=== PATIENT | male | born 1950 | race Caucasian/White ===

== ENCOUNTER 2017-02-02 21:07 | Inpatient (IN) | payer MEDICARE ==
[~2017-02-02 21:07] MED LIST: IBUP-232 PO; LORT5TAB PO; Z.0.NO CURRENT MEDS
[2017-02-02 21:09] VITALS: BP 179/90; PULSE 65; RESP 16; TEMP 98.7; O2SAT 97
[2017-02-02] MEDS ORDERED: SODIUM CHLOR 0.9% 1000 ML INJ 1,000 ML IV ONE (21:28)
[2017-02-02] MEDS ORDERED: HYDROmorphone HCL PF 1 MG/ML VIAL IVS ONE (21:30)
[2017-02-02] MEDS ORDERED: SODIUM CHLORIDE 0.9% FLUSH 10 ML FLUSH IVF PRN (21:30)
[2017-02-02] MEDS ORDERED: ONDANSETRON HCL 4 MG/2 ML VIAL IVP ONE (21:30)
[2017-02-02] MEDS ORDERED: KETOROLAC TROMETHAMINE 30 MG/ML (IVP) VIAL IVP ONE (21:30)
--- NOTE | 2017-02-02 21:35 | PD ---
HPI Chief Complaint: Flank/Kidney Pain Time Seen by Provider: 21:28 Travel History International Travel<30 days: No Contact w/Intl Traveler<30days: No Traveled to known affect area: No History of Present Illness HPI PATIENT C/O SUDDEN ONSET RT FLANK PAIN, RAD TO FRONT RLQ AREA, 02/02, ASSOC WITH GROSS HEMATURIA...DENIES ANY ALLEVIATING/AGGRAVATING FACTORS, DENIES ANY OTHER ASSOCIATED SYMPTOMS PMHX-DENIES EXCEPT RENAL CYST DENIES ANY MEDICATIONS NKDA PCP DR HICKEY [facility] Past Medical History Blood Disorders: No Cancer: No Cardiovascular Problems: No Chemotherapy: No Endocrine: No Genitourinary: No Immune Disorder: No Musculoskeletal: No Neurologic: No Psychiatric: No Respiratory: No Radiation Therapy: No Past Surgical History AICD: No Genitourinary Surgery: Yes (VASECTOMY AND REVERSAL) Joint Replacement: No Pacemaker: No Social History Alcohol Use: Yes (OCC) Tobacco Use: No Substance Use: No Allergies-Medications (Allergen,Severity, Reaction): Coded Allergies: No Known Allergies (Verified , 02/02/17) Reported Meds & Prescriptions Reported Meds & Active Scripts Active Review of Systems Except as stated in HPI: all other systems reviewed are Neg Genitourinary: Positive: Hematuria, Flank Pain Physical Exam Narrative GENERAL: SKIN: Warm and dry. HEAD: Atraumatic. Normocephalic. EYES: Pupils equal and round. No scleral icterus. No injection or drainage. ENT: No nasal bleeding or discharge. Mucous membranes pink and moist. NECK: Trachea midline. No JVD. CARDIOVASCULAR: Regular rate and rhythm. RESPIRATORY: No accessory muscle use. Clear to auscultation. Breath sounds equal bilaterally. GASTROINTESTINAL: Abdomen soft, non-tender, nondistended. Hepatic and splenic margins not palpable. MUSCULOSKELETAL: Extremities without clubbing, cyanosis, or edema. No obvious deformities. NEUROLOGICAL: Awake and alert. No obvious cranial nerve deficits. Motor grossly within normal limits. Five out of 5 muscle strength in the arms and legs. Normal speech. PSYCHIATRIC: Appropriate mood and affect; insight and judgment normal. Data Data Last Documented VS Vital Signs Date Time Temp Pulse Resp B/P Pulse Ox O2 Delivery O2 Flow Rate FiO2 02/02/17 22:40 18 02/02/17 21:09 98.7 65 179/90 97 Room Air Orders Complete Blood Count With Diff (02/02/17 21:28) Comprehensive Metabolic Panel (02/02/17 21:28) Urinalysis - C+S If Indicated (02/02/17 21:28) Ecg Monitoring (02/02/17 21:28) Iv Access Insert/Monitor (02/02/17 21:28) Ketorolac Inj (Toradol Inj) (02/02/17 21:30) Ondansetron Inj (Zofran Inj) (02/02/17 21:30) Sodium Chloride 0.9% Flush (Ns Flush) (02/02/17 21:30) Sodium Chlor 0.9% 1000 Ml Inj (Ns 1000 M (02/02/17 21:28) Hydromorphone Pf Inj (Dilaudid Pf Inj) (02/02/17 21:30) Urinary Catheter Insert/Apply (02/02/17 22:13) Ct Abd/Pel W & W/O Iv Contrast (02/02/17 21:28) Iohexol 350 Inj (Omnipaque 350 Inj) (02/02/17 22:26) Admit Order (Ed Use Only) (02/02/17 22:49) Admit To Inpatient (02/02/17 ) Vital Signs (Adult) Q4H (02/02/17 22:48) Activity Oob With Assistance (02/02/17 22:48) Manufacturing Engineering Technologist / Telemetry .CONTINUOUS (02/02/17 22:48) Diet Heart Healthy (02/03/17 Breakfast) Sodium Chloride 0.9% Flush (Ns Flush) (02/02/17 23:00) Sodium Chloride 0.9% Flush (Ns Flush) (02/03/17 09:00) Ondansetron Inj (Zofran Inj) (02/02/17 23:00) Basic Metabolic Panel (Bmp) (02/03/17 06:00) Complete Blood Count With Diff (02/03/17 06:00) Naloxone Inj (Narcan Inj) (02/02/17 23:00) Inpatient Certification (02/02/17 ) Consult Urology (02/02/17 ) Labs Laboratory Tests Test 02/02/17 21:35 White Blood Count 9.8 TH/MM3 Red Blood Count 4.38 MIL/MM3 Hemoglobin 13.7 GM/DL Hematocrit 41.4 % Mean Corpuscular Volume 94.5 FL Mean Corpuscular Hemoglobin 31.4 PG Mean Corpuscular Hemoglobin 33.2 % Concent Red Cell Distribution Width 13.0 % Platelet Count 323 TH/MM3 Mean Platelet Volume 8.3 FL Neutrophils (%) (Auto) 63.5 % Lymphocytes (%) (Auto) 22.3 % Monocytes (%) (Auto) 7.9 % Eosinophils (%) (Auto) 5.4 % Basophils (%) (Auto) 0.9 % Neutrophils # (Auto) 6.2 TH/MM3 Lymphocytes # (Auto) 2.2 TH/MM3 Monocytes # (Auto) 0.8 TH/MM3 Eosinophils # (Auto) 0.5 TH/MM3 Basophils # (Auto) 0.1 TH/MM3 CBC Comment DIFF FINAL Differential Comment Urine Color DARK-RED Urine Turbidity CLOUDY Urine pH 6.5 Urine Specific [place] 1.025 Urine Protein 100 mg/dL Urine Glucose (UA) NEG mg/dL Urine Ketones NEG mg/dL Urine Occult Blood LARGE Urine Nitrite NEG Urine Bilirubin NEG Urine Urobilinogen LESS THAN 2.0 MG/DL Urine Leukocyte Esterase TRACE Urine RBC /hpf Urine WBC 5 /hpf Urine Bacteria FEW /hpf Microscopic Urinalysis Comment CULT NOT INDICATED Sodium Level 139 MEQ/L Potassium Level 4.1 MEQ/L Chloride Level 107 MEQ/L Carbon Dioxide Level 25.1 MEQ/L Anion Gap 7 MEQ/L Blood Urea Nitrogen 22 MG/DL Creatinine 1.20 MG/DL Estimat Glomerular Filtration 60 ML/MIN Rate Random Glucose 111 MG/DL Calcium Level 9.7 MG/DL Total Bilirubin 0.3 MG/DL Aspartate Amino Transf 12 U/L (AST/SGOT) Alanine Aminotransferase 28 U/L (ALT/SGPT) Alkaline Phosphatase 47 U/L Total Protein 7.0 GM/DL Albumin 4.0 GM/DL [facility] Medical Decision Making Medical Screen Exam Complete: Yes Emergency Medical Condition: Yes Medical Record Reviewed: Yes Differential Diagnosis UTI V RENAL STONE V CANCER Narrative Course GROSS HEMATURIA NOTED, THREE WAY PLACED FOR CBI, CT ABD/PELVIS SHOWED RIGHT RENAL MASS, PER RADIOLOGIST CONVERTED TO CT WITH CONTRAST, WHICH CONFIRMED LIKELY RENAL CELL CARCINOMA. PATIENT ADMITTED TO MEDICINE FOR FURTHER WORKUP. INITIAL RETENTION AND GROSS HEMATURIA EVENTUALLY PARTIALLY CLEARED AFTER AGGRESSIVE IRRIGATION, HOWEVER SOURCE OF BLEEDING IS CA AND UNLIKELY THAT BLEEDING WILL STOP JUST BY CBI. Diagnosis Primary Impression: ACUTE GROSS HEMATURIA DUE TO NEWLY DIAGNOSED RENAL CA Admitting Information Admitting Physician Requests: Observation Dangelo Davison MD Feb 02, 2017 21:35
[2017-02-02 21:50] LABS: AUTOMATED NEUTROPHIL # 6.2 TH/MM3 (1.8-7.7); BASOPHIL # 0.1 TH/MM3 (0-0.2); BASOPHIL % 0.9 % (0.0-2.0); EOSINOPHIL # 0.5 TH/MM3 (0-0.4); EOSINOPHIL % 5.4 % (0.0-4.0); HEMATOCRIT 41.4 % (39.0-51.0); HEMO FLAGS DIFF FINAL; LYMPH % 22.3 % (9.0-44.0); LYMPHOCYTE # 2.2 TH/MM3 (1.0-4.8); MEAN CELL VOLUME 94.5 FL (80.0-100.0); MEAN CORPUSCULAR HEMOGLOBIN 31.4 PG (27.0-34.0); MEAN CORPUSCULAR HGB CONC 33.2 % (32.0-36.0); MONO % 7.9 % (0.0-8.0); NEUT % 63.5 % (16.0-70.0); PLATELET COUNT 323 TH/MM3 (150-450); RED BLOOD COUNT 4.38 MIL/MM3 (4.50-5.90); WHITE BLOOD COUNT 9.8 TH/MM3 (4.0-11.0)
[2017-02-02 21:52] LABS: BLOOD, URINE LARGE (NEG); GLUCOSE,URINE NEG (NEG); KETONE, URINE NEG (NEG); NITRITE,URINE NEG (NEG); PH, URINE 6.5 (5.0-8.5)
[2017-02-02 21:53] LABS: URINE COLOR DARK-RED (YELLW/STRAW)
[2017-02-02 22:03] LABS: ANION GAP 7 MEQ/L (5-15); AST (GOT) 12 U/L (15-37); BICARBONATE 25.1 MEQ/L (21.0-32.0); BLOOD UREA NITROGEN 22 MG/DL (7-18); CHLORIDE 107 MEQ/L (98-107); GLOMERULAR FILTRATION RATE 60 ML/MIN (>89); POTASSIUM 4.1 MEQ/L (3.5-5.1); SODIUM (NA) 139 MEQ/L (136-145)
[2017-02-02 22:04] LABS: ALT (GPT) 28 U/L (12-78)
[2017-02-02 22:05] LABS: BACTERIA, URINE FEW /hpf; COMMENT (UR) CULT NOT INDICATED; CULTURE IF INDICATED CULT NOT INDICATED
[2017-02-02 22:06] LABS: ALKALINE PHOSPHATASE 47 U/L (45-117); TOTAL BILIRUBIN ADULT 0.3 MG/DL (0.2-1.0)
[2017-02-02] MEDS ORDERED: IOHEXOL 350 MG/ML 10 ML VIAL (for RAD DIAG) IV ONE (22:26)
--- NOTE | 2017-02-02 22:57 | RADRPT ---
EXAM DATE/TIME: 02/02/2017 21:50 [place] COMPARISON: No previous studies available for comparison. INDICATIONS : Right side flank pain and hematuria. ORAL CONTRAST: No oral contrast ingested. RADIATION DOSE: 90.6 CTDIvol (mGy) MEDICAL HISTORY : None SURGICAL HISTORY : None. ENCOUNTER: Initial ACUITY: 1 day PAIN SCALE: 10/10 LOCATION: Right flank TECHNIQUE: Volumetric scanning of the abdomen and pelvis was performed. Using automated exposure control and ad justment of the mA and/or kV according to patient size, radiation dose was kept as low as reasonably achievable to obtain optimal diagnostic quality images. DICOM format image data is available electro nically for review and comparison. Study was done without contrast, with contrast, with 72 second de lay, and 5 minute delay. FINDINGS: LOWER LUNGS: The visualized lower lungs are clear. LIVER: 1.1 cm low-density lesion dome of the liver nonspecific probably cysts. There is no intrahepatic mode t dilatation. Gallbladder is unremarkable. SPLEEN: Normal size without lesion. PANCREAS: Within normal limits. ADRENAL GLANDS: Within normal limits. RIGHT KIDNEY: 12.6 cm Bosniak 2 cyst upper pole right kidney. 6 cm x 4.5 cm enhancing mass lower pole right kidney with minimal neovascularity. This mass is pedunculated, projects from the lower pole of the right k idney, touches the psoas and iliopsoas without sheela invasion. There is an single renal artery to th e right kidney. There is apparent clot in the renal pelvis. The renal vein is short but patent. A third 1.5 cm Bosniak 3 cystic mass projected from the kidney. There is perinephric stranding around the ureter with clot in the bladder suggesting clot retention. LEFT KIDNEY: The left kidney functions properly without suspicious mass or obstruction. The single left ureter pu rsues an unobstructed course to the bladder. VASCULAR: Minimal atherosclerotic calcification is present. BOWEL/MESENTERY: The stomach, small bowel, and colon demonstrate no acute abnormality. There is no free intraperitone al air or fluid. RETROPERITONEUM: There is no lymphadenopathy. BLADDER: Apparent clot is present in the bladder. REPRODUCTIVE: Prostate is prominent. ABDOMINAL WALL: Within normal limits. INGUINAL: There is no lymphadenopathy or hernia. MUSCULOSKELETAL: Moderate degenerative changes are present in the lumbar spine. There is no evidence for bony metasta tic disease. Scattered incidental bone islands are noted. CONCLUSION: Enhancing pedunculated 6 cm mass right kidney consistent with renal cell carcinoma. Presumed moderate clot retention in the renal pelvis. Bong Herrera MD FACR on February 02, 2017 at 22:40 Board Certified Radiologist. This report was verified electronically.
[2017-02-02] MEDS ORDERED: SODIUM CHLORIDE 0.9% FLUSH 10 ML FLUSH IV FLUSH PRN (23:00)
[2017-02-02] MEDS ORDERED: ONDANSETRON HCL 4 MG/2 ML VIAL IVP PRN (23:00)
[2017-02-02] MEDS ORDERED: NALOXONE HCL 0.4 MG/ML AMP IV PRN (23:00)
[2017-02-02] MEDS ORDERED: HYDROmorphone HCL PF 1 MG/ML VIAL IV PUSH ONE (23:15)
[2017-02-03] VITALS: BP 170/80; PULSE 74; RESP 18; TEMP 98.4; O2SAT 98
[2017-02-03 00:12] VITALS: BP 134/74; PULSE 72; RESP 16; O2SAT 98
--- NOTE | 2017-02-03 02:24 | HHI.HP ---
HPI Service [facility] Primary Care Physician Braeden Kay MD Admission Diagnosis GROSS HEMATURIA DUE TO NEWLY DIAGNOSED RENAL CA Diagnoses: (1) Renal mass Chief Complaint: Hematuria Travel History International Travel<30 Days: No Contact w/Intl Traveler <30 Da: No Traveled to Known Affected Are: No History of Present Illness Written by Carolina Denton, acting as scribe for Dr. Velazquez on 02/03/17 at 02:23. Symptoms: The patient reports that he started urinating blood Then he passed clots followed by severe suprapubic pain with attempted urination Symptoms started at 6 p.m. on 02/02/17 and have now resolved Denies dizziness, chest pain, shortness of breath, nausea, vomiting, diarrhea, black or red stools, fevers. Review of Systems Except as stated in HPI: all other systems reviewed are Neg Past Family Social History Past Medical History Denies any medical problems Denies hypertension, diabetes, CAD, breathing problems, liver/kidney problems, DVT, PE, CVA, seizures, or thyroid problems . Past Surgical History Denies . Reported Medications Reported Meds & Active Scripts Active . Allergies: Coded Allergies: No Known Allergies (Verified , 02/02/17) Active Ordered Medications Current Medications Ketorolac Tromethamine (Toradol Inj) 30 mg ONCE ONCE IVP Last administered on 02/02/17 21:47; Start 02/02/17 at 21:30; Stop 02/02/17 at 21:31; Status DC Ondansetron HCl (Zofran Inj) 4 mg ONCE ONCE IVP Last administered on 21:47; Start 02/02/17 at 21:30; Stop 02/02/17 at 21:31; Status DC Sodium Chloride 2 ml 2 ml UNSCH PRN IVF FLUSH AFTER USING IV ACCESS; Start 04/11 at 21:30 Sodium Chloride (NS 1000 ml Inj) 1,000 ml @ 1,000 mls/hr Q1H ONCE IV Last administered on 02/02/17 21:46; Start 02/02/17 at 21:28; Stop 02/02/17 at 22:27 ; Status DC Hydromorphone HCl (Dilaudid Pf Inj) 0.5 mg ONCE ONCE IVS Last administered on 02/02/17 21:47; Start 02/02/17 at 21:30; Stop 02/02/17 at 21:31; Status DC Iohexol (Omnipaque 350 Inj) 80 ml STK-MED ONCE IV Last administered on 22:26; Start 02/02/17 at 22:26; Stop 02/02/17 at 22:27; Status DC Sodium Chloride (NS Flush) 2 ml UNSCH PRN IV FLUSH FLUSH AFTER USING IV ACCESS ; Start 02/02/17 at 23:00 Sodium Chloride (NS Flush) 2 ml BID IV FLUSH ; Start 02/03/17 at 09:00 Ondansetron HCl (Zofran Inj) 4 mg Q6H PRN IVP NAUSEA OR VOMITING; Start at 23:00 Naloxone HCl (Narcan Inj) 0.4 mg UNSCH PRN IV SEE LABEL COMMENTS; Start at 23:00 Hydromorphone HCl (Dilaudid Pf Inj) 1 mg ONCE ONCE IV PUSH Last administered on 02/02/17 23:38; Start 02/02/17 at 23:15; Stop 02/02/17 at 23:16; Status DC . Family History positive for heart disease . Social History Tobacco: smoked from age 18 - 24 Alcohol: occasional social Illicit Drugs: denies . Physical Exam Vital Signs Vital Signs Date Time Temp Pulse Resp B/P Pulse Ox O2 Delivery O2 Flow Rate FiO2 02/03/17 00:12 72 16 134/74 98 Room Air 02/03/17 00:00 98.4 74 18 170/80 98 02/02/17 22:40 18 02/02/17 22:40 18 02/02/17 21:09 98.7 65 16 179/90 97 Room Air Physical Exam GENERAL: This is a well-nourished, well-developed patient, in no apparent distress. SKIN: No rashes, ecchymoses or lesions. Cool and dry. HEAD: Atraumatic. Normocephalic. EYES: No scleral icterus. No injection or drainage. ENT: Nose without bleeding, purulent drainage. NECK: Trachea midline. No JVD. CARDIOVASCULAR: Regular rate and rhythm without murmurs, gallops, or rubs. RESPIRATORY: Clear to auscultation. Breath sounds equal bilaterally. No wheezes , rales, or rhonchi. GASTROINTESTINAL: Abdomen soft, non-tender, nondistended. No guarding. GENITOURINARY: Benites catheter to bedside drainage with continuous bladder irrigation draining bloody urine. MUSCULOSKELETAL: Extremities without clubbing, cyanosis, or edema. No calf tenderness. NEUROLOGICAL: Awake and alert. Motor and sensory grossly within normal limits. Normal speech. . Laboratory Laboratory Tests Test 02/02/17 21:35 White Blood Count 9.8 Red Blood Count 4.38 Hemoglobin 13.7 Hematocrit 41.4 Mean Corpuscular Volume 94.5 Mean Corpuscular Hemoglobin 31.4 Mean Corpuscular Hemoglobin 33.2 Concent Red Cell Distribution Width 13.0 Platelet Count 323 Mean Platelet Volume 8.3 Neutrophils (%) (Auto) 63.5 Lymphocytes (%) (Auto) 22.3 Monocytes (%) (Auto) 7.9 Eosinophils (%) (Auto) 5.4 Basophils (%) (Auto) 0.9 Neutrophils # (Auto) 6.2 Lymphocytes # (Auto) 2.2 Monocytes # (Auto) 0.8 Eosinophils # (Auto) 0.5 Basophils # (Auto) 0.1 CBC Comment DIFF FINAL Differential Comment Urine Color DARK-RED Urine Turbidity CLOUDY Urine pH 6.5 Urine Specific [place] 1.025 Urine Protein 100 Urine Glucose (UA) NEG Urine Ketones NEG Urine Occult Blood LARGE Urine Nitrite NEG Urine Bilirubin NEG Urine Urobilinogen LESS THAN 2.0 Urine Leukocyte Esterase TRACE Urine RBC Urine WBC 5 Urine Bacteria FEW Microscopic Urinalysis Comment CULT NOT INDICATED Sodium Level 139 Potassium Level 4.1 Chloride Level 107 Carbon Dioxide Level 25.1 Anion Gap 7 Blood Urea Nitrogen 22 Creatinine 1.20 Estimat Glomerular Filtration 60 Rate Random Glucose 111 Calcium Level 9.7 Total Bilirubin 0.3 Aspartate Amino Transf 12 (AST/SGOT) Alanine Aminotransferase 28 (ALT/SGPT) Alkaline Phosphatase 47 Total Protein 7.0 Albumin 4.0 Result Diagram: 02/02/17213402/02/172134 Imaging Last Impressions Abdomen/Pelvis CT 02/02/172127 Signed Impressions: Service Date/Time: January 21:50 - CONCLUSION: Enhancing pedunculated 6 cm mass right kidney consistent with renal cell carcinoma. Presumed moderate clot retention in the renal pelvis. Bong Herrera MD FACR Assessment and Plan Problem List: (1) Renal mass ICD Code: N28.89 Status: Acute Assessment and Plan Renal mass Abdomen/Pelvis CT shows: Enhancing pedunculated 6 cm mass right kidney consistent with renal cell carcinoma. Presumed moderate clot retention in the renal pelvis. - Dilaudid 0.5 mg IV every 4 hours as needed for pain greater than 5 - Urology consulted - Monitor vital signs every 4 hours - Recheck CBC in a.m. and closely monitor hemoglobin and hematocrit due to urinary blood loss DVT prophylaxis - Chemotherapy prophylaxis contraindicated; - SCDs/BLANCA hose .. This note was transcribed by paula [Carolina Denton]. I, Dr. Rick Velazquez personally performed the history, physical exam, and medical decision making; and confirmed the accuracy of the information in the transcribed note. Authenticated by Dr. Rick Velazquez on 02/03/17 at 02:23. Discussed Condition With ER physician and patient . Physician Certification 2 Midnight Certification Type: Admission for Inpatient Services Order for Inpatient Services The services are ordered in accordance with Medicare regulations or non- Medicare payer requirements, as applicable. In the case of services not specified as inpatient-only, they are appropriately provided as inpatient services in accordance with the 2-midnight benchmark. Estimated LOS (days): 3 days is the estimated time the patient will need to remain in the hospital, assuming treatment plan goals are met and no additional complications. Post-Hospital Plan: [place] Carolina Denton Feb 03, 2017 02:24 Rick Velazquez MD Feb 03, 2017 08:36
[2017-02-03] MEDS: HYDROmorphone HCL PF 1 MG/ML VIAL IV PUSH PRN ×5 (05:05→23:02)
[2017-02-03 08:00] VITALS: BP 155/94; PULSE 67; PULSE 70; RESP 18; TEMP 98.1; O2SAT 97
[2017-02-03 09:55] LABS: AUTOMATED NEUTROPHIL # 12.1 TH/MM3 (1.8-7.7); BASOPHIL # 0.1 TH/MM3 (0-0.2); BASOPHIL % 0.4 % (0.0-2.0); EOSINOPHIL % 0.1 % (0.0-4.0); HEMATOCRIT 40.5 % (39.0-51.0); HEMO FLAGS DIFF FINAL; LYMPH % 4.8 % (9.0-44.0); LYMPHOCYTE # 0.7 TH/MM3 (1.0-4.8); MEAN CELL VOLUME 93.4 FL (80.0-100.0); MEAN CORPUSCULAR HEMOGLOBIN 32.1 PG (27.0-34.0); MEAN CORPUSCULAR HGB CONC 34.4 % (32.0-36.0); MONO % 7.2 % (0.0-8.0); NEUT % 87.5 % (16.0-70.0); PLATELET COUNT 243 TH/MM3 (150-450); RED BLOOD COUNT 4.34 MIL/MM3 (4.50-5.90); RED CELL DISTRIBUTION WIDTH 13.5 % (11.6-17.2); WHITE BLOOD COUNT 13.8 TH/MM3 (4.0-11.0)
[2017-02-03 10:16] LABS: BICARBONATE 22.5 MEQ/L (21.0-32.0); POTASSIUM 3.8 MEQ/L (3.5-5.1)
[2017-02-03] MEDS: SODIUM CHLORIDE 0.9% FLUSH 10 ML FLUSH IV FLUSH SCH ×2 (11:25→23:02)
[2017-02-03 12:00] VITALS: BP 158/85; PULSE 78; RESP 18; TEMP 98.4; O2SAT 98
--- NOTE | 2017-02-03 15:12 | HHI.PR ---
Subjective Remarks Follow up hematuria, renal mass. Patient states that his pain is controlled. Denies nausea/vomiting. Objective Vitals Vital Signs Date Time Temp Pulse Resp B/P Pulse Ox O2 Delivery O2 Flow Rate FiO2 02/03/17 12:00 98.4 78 18 158/85 98 02/03/17 08:00 98.1 70 18 155/94 97 02/03/17 05:37 16 02/03/17 00:12 72 16 134/74 98 Room Air 02/03/17 00:00 98.4 74 18 170/80 98 02/02/17 22:40 18 02/02/17 22:40 18 02/02/17 21:09 98.7 65 16 179/90 97 Room Air Result Diagram: 02/03/1791802/03/17918 Imaging Last Impressions Abdomen/Pelvis CT 02/02/172127 Signed Impressions: Service Date/Time: January 21:50 - CONCLUSION: Enhancing pedunculated 6 cm mass right kidney consistent with renal cell carcinoma. Presumed moderate clot retention in the renal pelvis. Bong Herrera MD FACR Objective Remarks General: No acute distress. Heart: Regular rate and rhythm. No murmur. Lungs: Clear to auscultation bilaterally. No wheezes, rales, or rhonchi. Breathing is nonlabored. Abdomen: Soft, nontender, nondistended. Extremities: No lower extremity edema. Psych: Alert and oriented. Procedures None Urinary Catheter: Yes Assessment to: Continue Benites insert reason: Obstruction/Retention Vascular Central Line Catheter: No A/P Problem List: (1) Renal mass ICD Code: N28.89 Status: Acute (2) Hematuria ICD Code: R31.9 Status: Acute Assessment and Plan 1. Right renal mass, hematuria: CT abdomen/pelvis shows enhancing pedunculated 6 cm mass of the right kidney consistent with renal cell carcinoma. Benites catheter in place. Urology consultation is pending. Monitor H&H. 2. DVT prophylaxis: SCDs, LBANCA cuevas. Avoid chemical prophylaxis secondary to hematuria. Adrian Fox MD Feb 03, 2017 15:12
[2017-02-03 16:00] VITALS: BP 163/93; PULSE 80; PULSE 90; RESP 18; TEMP 99.9; O2SAT 97
--- NOTE | 2017-02-03 18:58 | PD.CONS ---
HPI Service Urology Consult Requested By Reason for Consult Renal Mass Primary Care Physician Braeden Kay MD Diagnosis: (1) Renal mass ICD Code: N28.89 (2) Hematuria ICD Code: R31.9 History of Present Illness 66yo male with no significant past medical history admitted for gross hematuria. Patient underwent CT scan which identified a large right lower pole renal mass as well as large right renal cyst. PAtient also reports right flank pain that started last night. The hematuria began yesterday as well. He has never had blood in his urine before. The pain remains localized to the right flank and RUQ abdomen. No N/V. He denies any issues voiding. No medications. Review of Systems ROS Limitations: Clinical Condition Constitutional: DENIES: Fever Endocrine: DENIES: Heat/cold intolerance Eyes: DENIES: Blurred vision Ears, nose, mouth, throat: DENIES: Tinnitus, Hearing loss Respiratory: DENIES: Cough Cardiovascular: DENIES: Chest pain Gastrointestinal: COMPLAINS OF: Abdominal pain, DENIES: Nausea, Vomiting Genitourinary: COMPLAINS OF: Hematuria Musculoskeletal: DENIES: Joint pain Integumentary: DENIES: Abnormal pigmentation Hematologic/lymphatic: DENIES: Bruising Neurologic: DENIES: Abnormal gait, Headache Psychiatric: DENIES: Anxiety Except as stated in HPI: all other systems reviewed are Neg Past Family Social History Past Medical History No signficant past medical history Past Surgical History No surgeries Reported Medications Reported Meds & Active Scripts Active Allergies: Coded Allergies: No Known Allergies (Verified , 02/02/17) Active Ordered Medications Current Medications Medications (Trade) Dose Ordered Sig/Leigh Route Start Time Stop Time Status Last Admin (NS Flush) 2 ml UNSCH PRN IVF 02/02/17 21:30 (NS Flush) 2 ml UNSCH PRN IV FLUSH 02/02/17 23:00 (NS Flush) 2 ml BID IV FLUSH 02/03/17 09:00 02/03/17 11:25 (Zofran Inj) 4 mg Q6H PRN IVP 02/02/17 23:00 (Narcan Inj) 0.4 mg UNSCH PRN IV 02/02/17 23:00 (Dilaudid Pf Inj) 0.5 mg Q4H PRN IV PUSH 02/03/17 04:45 02/03/17 15:09 Family History Family history reviewed and noncontributory to present illness Social History Tobacco: smoked from age 18 - 24 Alcohol: occasional social Illicit Drugs: denies Physical Exam Vital Signs Date Time Temp Pulse Resp B/P Pulse Ox O2 Delivery O2 Flow Rate FiO2 02/03/17 16:00 99.9 80 18 163/93 97 02/03/17 12:00 98.4 78 18 158/85 98 02/03/17 08:00 98.1 70 18 155/94 97 02/03/17 05:37 16 02/03/17 00:12 72 16 134/74 98 Room Air 02/03/17 00:00 98.4 74 18 170/80 98 02/02/17 22:40 18 02/02/17 22:40 18 02/02/17 21:09 98.7 65 16 179/90 97 Room Air Physical Exam GENERAL: This is a well-nourished, well-developed patient, in no apparent distress. SKIN: No rashes, ecchymoses or lesions. Cool and dry. HEAD: Atraumatic. Normocephalic. EYES: Extraocular motions intact. No scleral icterus. No injection or drainage. ENT: Nose without bleeding, purulent drainage. Airway patent. NECK: Trachea midline. No JVD or lymphadenopathy. CARDIOVASCULAR: Normal pulses, no edema RESPIRATORY: Nonlabored, equal chest rise GASTROINTESTINAL: Abdomen soft, non-tender, nondistended. GENITOURINARY: 16Fr 3-way zazueta catheter in place draining light red/tea colored , no clots MUSCULOSKELETAL: Extremities without clubbing, cyanosis, or edema. NEUROLOGICAL: Awake and alert. Motor and sensory grossly within normal limits. Normal speech. Laboratory Tests Test 02/02/17 02/03/17 21:35 09:19 White Blood Count 9.8 13.8 Red Blood Count 4.38 4.34 Hemoglobin 13.7 13.9 Hematocrit 41.4 40.5 Mean Corpuscular Volume 94.5 93.4 Mean Corpuscular Hemoglobin 31.4 32.1 Mean Corpuscular Hemoglobin 33.2 34.4 Concent Red Cell Distribution Width 13.0 13.5 Platelet Count 323 243 Mean Platelet Volume 8.3 8.6 Neutrophils (%) (Auto) 63.5 87.5 Lymphocytes (%) (Auto) 22.3 4.8 Monocytes (%) (Auto) 7.9 7.2 Eosinophils (%) (Auto) 5.4 0.1 Basophils (%) (Auto) 0.9 0.4 Neutrophils # (Auto) 6.2 12.1 Lymphocytes # (Auto) 2.2 0.7 Monocytes # (Auto) 0.8 1.0 Eosinophils # (Auto) 0.5 0.0 Basophils # (Auto) 0.1 0.1 CBC Comment DIFF FINAL DIFF FINAL Differential Comment Urine Color DARK-RED Urine Turbidity CLOUDY Urine pH 6.5 Urine Specific [place] 1.025 Urine Protein 100 Urine Glucose (UA) NEG Urine Ketones NEG Urine Occult Blood LARGE Urine Nitrite NEG Urine Bilirubin NEG Urine Urobilinogen LESS THAN 2.0 Urine Leukocyte Esterase TRACE Urine RBC Urine WBC 5 Urine Bacteria FEW Microscopic Urinalysis Comment CULT NOT INDICATED Sodium Level 139 136 Potassium Level 4.1 3.8 Chloride Level 107 108 Carbon Dioxide Level 25.1 22.5 Anion Gap 7 6 Blood Urea Nitrogen 22 23 Creatinine 1.20 1.35 Estimat Glomerular Filtration 60 53 Rate Random Glucose 111 103 Calcium Level 9.7 9.3 Total Bilirubin 0.3 Aspartate Amino Transf 12 (AST/SGOT) Alanine Aminotransferase 28 (ALT/SGPT) Alkaline Phosphatase 47 Total Protein 7.0 Albumin 4.0 Result Diagram: 02/03/1791802/03/17918 Personally reviewed images: Yes Imaging Last Impressions Abdomen/Pelvis CT 02/02/172127 Signed Impressions: Service Date/Time: January 21:50 - CONCLUSION: Enhancing pedunculated 6 cm mass right kidney consistent with renal cell carcinoma. Presumed moderate clot retention in the renal pelvis. Bong Herrera MD FACR Assessment and Plan Problem List: (1) Hematuria ICD Code: R31.9 Status: Acute (2) Renal mass ICD Code: N28.89 Status: Acute Assessment and Plan -CT scan images reviewed. Large right 6cm lower pole renal mass concerning for RCC. It's appearance does not appear to be collecting system origin, however delayed films do not alow adequate assessment of the right collecting system. Large right simple renal cyst noted as well -Patient's hematuria may not resolve if coming from renal mass. Treatment would be surgery -If patient is stable with pain control, he may be discharged despite hematuria with follow-up in Urology clinic to plan for surgical intervention, radical nephrectomy vs partial nephrectomy -It is possible based on imaging studies that a partial nephrectomy may be performed, and may even be done robotically -Patient will need further evaluation and discussion once stabilized from hospitalization with Robotic partner, Dr. Agrawal, to determine resectability of this mass via robot. Patient may need cystoscopy and ureteroscopy prior to any major surgery to rule out urothelial carcinoma -If patient develops increased hematuria or clots, remove 16Fr catheter and place a 22Fr zazueta, 3-way if necessary -Please call with questions Bran Rowe MD Feb 03, 2017 18:58
[2017-02-03 20:00] VITALS: BP 160/83; PULSE 91; RESP 17; TEMP 99.4; O2SAT 93
[2017-02-03 20:24] LABS: HEMATOCRIT 41.6 % (39.0-51.0); REVIEW FLAG FINAL
[2017-02-04] VITALS: BP 173/89; PULSE 95; RESP 17; TEMP 100.8; O2SAT 92
[2017-02-04] MEDS ORDERED: cefTRIAXone INJ 2,000 MG in SODIUM CHLORIDE 0.9% INJ 100 ML IV ONE (01:00)
--- NOTE | 2017-02-04 01:20 | RADRPT ---
EXAM DATE/TIME: 02/04/2017 00:52 [facility] COMPARISON: No previous studies available for comparison. INDICATIONS : New onset of fever. MEDICAL HISTORY : Renal carcinoma newly diagnosed. SURGICAL HISTORY : None. ENCOUNTER: Initial ACUITY: 1 day PAIN SCORE: 0/10 LOCATION: Bilateral chest FINDINGS: A single view of the chest demonstrates bibasilar patchy densities. Heart normal in size.. Osseous s tructures are intact. CONCLUSION: Bibasilar patchy infiltrates. Jonathan Lopez MD on February 04, 2017 at 1:19 Board Certified Radiologist. This report was verified electronically.
[2017-02-04 01:35] LABS: BLOOD, URINE LARGE (NEG); GLUCOSE,URINE NEG (NEG); KETONE, URINE 40 mg/dL (NEG); MUCUS URINE FEW /lpf (OCC); NITRITE,URINE NEG (NEG); PH, URINE 5.5 (5.0-8.5); URINE COLOR YELLOW (YELLW/STRAW)
[2017-02-04 01:54] LABS: COMMENT (UR) CATH-CULT NOT IND; CULTURE IF INDICATED CATH CULTURE NOT IND
[2017-02-04 02:19] LABS: AUTOMATED NEUTROPHIL # 18.7 TH/MM3 (1.8-7.7); BASOPHIL % 0.2 % (0.0-2.0); HEMATOCRIT 42.1 % (39.0-51.0); HEMO FLAGS DIFF FINAL; LYMPH % 3.5 % (9.0-44.0); LYMPHOCYTE # 0.7 TH/MM3 (1.0-4.8); MEAN CORPUSCULAR HEMOGLOBIN 30.9 PG (27.0-34.0); MEAN CORPUSCULAR HGB CONC 32.9 % (32.0-36.0); MONO % 7.1 % (0.0-8.0); NEUT % 89.2 % (16.0-70.0); PLATELET COUNT 269 TH/MM3 (150-450); RED BLOOD COUNT 4.48 MIL/MM3 (4.50-5.90); RED CELL DISTRIBUTION WIDTH 13.1 % (11.6-17.2); WHITE BLOOD COUNT 20.9 TH/MM3 (4.0-11.0)
[2017-02-04] MEDS ORDERED: RESP: ALBUTEROL 2.5 MG/IPRATROPIUM 0.5 MG NEB (PRN) NEB (02:30)
[2017-02-04 02:52] LABS: BICARBONATE 22.1 MEQ/L (21.0-32.0)
[2017-02-04] MEDS: LEVOFLOXACIN 750 MG PREMIX INJ 150 ML IV SCH (03:10)
[2017-02-04] MEDS: ACETAMINOPHEN 325 MG TAB PO PRN (03:11)
[2017-02-04 04:00] VITALS: BP 169/85; PULSE 81; RESP 17; TEMP 100.4; O2SAT 97
[2017-02-04] MEDS ORDERED: BELLADONNA ALKALOIDS/OPIUM 60 MG SUPP RECTAL ONE (04:00)
[2017-02-04 08:00] VITALS: BP 178/97; PULSE 87; RESP 16; TEMP 96.4; O2SAT 96
[2017-02-04] MEDS: HYDROmorphone HCL PF 1 MG/ML VIAL IV PUSH PRN ×4 (08:20→23:12)
[2017-02-04] MEDS ORDERED: BELLADONNA ALKALOIDS/OPIUM 60 MG SUPP RECTAL PRN (09:00)
[2017-02-04] MEDS: SODIUM CHLORIDE 0.9% FLUSH 10 ML FLUSH IV FLUSH SCH ×2 (09:00→23:12)
[2017-02-04 12:00] VITALS: BP_SYST 129; BP_SYST 154; BP_DIAS 79; BP_DIAS 87; PULSE 71; PULSE 78; PULSE 94; RESP 14; TEMP 96.3; TEMP 97.7; O2SAT 96; O2SAT 97
--- NOTE | 2017-02-04 15:27 | HHI.PR ---
Subjective Remarks Follow up hematuria, renal mass, pneumonia. Patient states that he feels better this afternoon. Benites was changed to a larger catheter. No chest pain, dyspnea, cough. Objective Vitals Vital Signs Date Time Temp Pulse Resp B/P Pulse Ox O2 Delivery O2 Flow Rate FiO2 02/04/17 12:00 97.7 94 14 154/87 96 02/04/17 12:00 97.7 94 14 154/87 97 02/04/17 08:00 96.4 87 16 178/97 96 02/04/17 04:00 100.4 81 17 169/85 97 02/04/17 00:00 100.8 95 17 173/89 92 02/03/17 20:00 99.4 91 17 160/83 93 02/03/17 16:00 99.9 80 18 163/93 97 02/03/17 16:00 90 I/O 02/03/17 02/03/17 02/03/17 02/04/17 02/04/17 02/04/17 06:59 14:59 22:59 06:59 14:59 22:59 Intake Total 1080 ml 240 ml 480 ml Output Total 2650 ml 300 ml Balance -1570 ml -60 ml 480 ml Intake Oral 1080 ml 240 ml 480 ml Output Urine Total 2650 ml 300 ml # Voids 3 # Bowel Movements 0 Result Diagram: 02/04/17 0204 02/04/17 0204 Imaging Last Impressions Chest X-Ray 02/04/17 0000 Signed Impressions: Service Date/Time: Saturday, February 04, 2017 00:52 - CONCLUSION: Bibasilar patchy infiltrates. Jonathan Lopez MD Abdomen/Pelvis CT 02/02/172127 Signed Impressions: Service Date/Time: January 21:50 - CONCLUSION: Enhancing pedunculated 6 cm mass right kidney consistent with renal cell carcinoma. Presumed moderate clot retention in the renal pelvis. Bong Herrera MD FACR Objective Remarks General: No acute distress. Heart: Regular rate and rhythm. No murmur. Lungs: Clear to auscultation bilaterally. No wheezes, rales, or rhonchi. Breathing is nonlabored. Abdomen: Soft, nontender, nondistended. Extremities: No lower extremity edema. Psych: Alert and oriented. Procedures None Urinary Catheter: Yes Assessment to: Continue Benites insert reason: Obstruction/Retention Vascular Central Line Catheter: No A/P Problem List: (1) Renal mass ICD Code: N28.89 Status: Acute (2) Hematuria ICD Code: R31.9 Status: Acute Assessment and Plan 1. Right renal mass, hematuria: CT abdomen/pelvis shows enhancing pedunculated 6 cm mass of the right kidney consistent with renal cell carcinoma. Benites catheter in place. H/H stable. Appreciate urology recommendations. Plan for outpatient evaluation to determine surgical options. 2. Pneumonia, sepsis: Patient developed fever, leukocytosis. CXR shows pneumonia. Continue antibiotics. Blood cultures are pending. 3. DVT prophylaxis: SCDs, BLANCA hose. Avoid chemical prophylaxis secondary to hematuria. Discharge Planning The patient is concerned that the urologist who has evaluated him is not on his insurance plan and he wants to see a urologist near his home in [place], one who is on his insurance. The insurance company may require a referral from the patient's PCP, Dr. Kay. Adrian Fox MD Feb 04, 2017 15:26
[2017-02-04 16:00] VITALS: BP 158/85; PULSE 92; RESP 16; TEMP 99.6; O2SAT 95
[2017-02-04 20:00] VITALS: BP 188/96; PULSE 101; RESP 21; TEMP 100.1; O2SAT 93
[2017-02-05] VITALS (11 sets, daily range): BP systolic 114–170; BP diastolic 67–83; PULSE 79–93; RESP 16–20; TEMP 97.6–99.4; O2SAT 93–95
[2017-02-05] MEDS: ACETAMINOPHEN 325 MG TAB PO PRN ×2 (01:08→11:07)
[2017-02-05] MEDS: HYDROmorphone HCL PF 1 MG/ML VIAL IV PUSH PRN ×5 (03:22→21:51)
[2017-02-05] MEDS: LEVOFLOXACIN 750 MG PREMIX INJ 150 ML IV SCH (03:28)
[2017-02-05] MEDS: SODIUM CHLORIDE 0.9% FLUSH 10 ML FLUSH IV FLUSH SCH (08:23)
[2017-02-05] MEDS: amLODIPine BESYLATE 5 MG TAB PO SCH (08:23)
--- NOTE | 2017-02-05 09:48 | HHI.PR ---
Subjective Remarks Follow-up hematuria, pneumonia. The patient states that he feels a little better today. Urine is much more clear today. Patient reports some chest congestion, but denies chest pain or dyspnea. Objective Vitals Vital Signs Date Time Temp Pulse Resp B/P Pulse Ox O2 Delivery O2 Flow Rate FiO2 02/05/17 08:00 98.2 83 16 131/74 95 02/05/17 04:03 83 02/05/17 04:00 98.2 89 19 158/83 94 02/05/17 00:00 99.4 86 20 170/80 93 02/04/17 20:00 100.1 101 21 188/96 93 02/04/17 16:00 99.6 92 16 158/85 95 02/04/17 12:00 97.7 94 14 154/87 96 02/04/17 12:00 97.7 94 14 154/87 97 02/04/17 12:00 78 I/O 02/04/17 02/04/17 02/04/17 02/05/17 02/05/17 02/05/17 07:00 15:00 23:00 07:00 15:00 23:00 Intake Total 240 ml 480 ml 480 ml 480 ml Output Total 300 ml 350 ml Balance -60 ml 480 ml 480 ml 480 ml -350 ml Intake Oral 240 ml 480 ml 480 ml 480 ml Output Urine Total 300 ml 350 ml # Voids 3 # Bowel Movements 0 Result Diagram: 02/04/17 0204 02/04/17 0204 Imaging Last Impressions Chest X-Ray 02/04/17 0000 Signed Impressions: Service Date/Time: Saturday, February 04, 2017 00:52 - CONCLUSION: Bibasilar patchy infiltrates. Jonathan Lopez MD Abdomen/Pelvis CT 02/02/172127 Signed Impressions: Service Date/Time: January 21:50 - CONCLUSION: Enhancing pedunculated 6 cm mass right kidney consistent with renal cell carcinoma. Presumed moderate clot retention in the renal pelvis. Bong Herrera MD FACR Objective Remarks General: No acute distress. Heart: Regular rate and rhythm. No murmur. Lungs: Mild bibasilar crackles, right greater than left. Breathing is nonlabored. Abdomen: Soft, nontender, nondistended. Extremities: No lower extremity edema. Psych: Alert and oriented. Procedures None Urinary Catheter: Yes Assessment to: Continue Benites insert reason: Obstruction/Retention Vascular Central Line Catheter: No A/P Problem List: (1) Renal mass ICD Code: N28.89 Status: Acute (2) Hematuria ICD Code: R31.9 Status: Acute Assessment and Plan 1. Right renal mass, hematuria: CT abdomen/pelvis shows enhancing pedunculated 6 cm mass of the right kidney consistent with renal cell carcinoma. Benites catheter in place. H/H stable. Labs are pending today. Appreciate urology recommendations. Plan for outpatient evaluation to determine surgical options. 2. Pneumonia, sepsis: Patient developed fever, leukocytosis. CXR shows pneumonia. Continue antibiotics. Blood cultures are pending. Labs are pending today. Patient had low-grade fever overnight. 3. DVT prophylaxis: BLANCA Bow[place]. Avoid chemical prophylaxis secondary to hematuria. Discharge Planning The patient is concerned that the urologist who has evaluated him is not on his insurance plan and he wants to see a urologist near his home in [place], one who is on his insurance. The insurance company may require a referral from the patient's PCP, Dr. Kay. Adrian Fox MD Feb 05, 2017 09:48
[2017-02-05 18:35] LABS: BASOPHIL % 0.2 % (0.0-2.0); EOSINOPHIL % 0.3 % (0.0-4.0); HEMATOCRIT 43.5 % (39.0-51.0); HEMO FLAGS DIFF FINAL; LYMPH % 8.7 % (9.0-44.0); LYMPHOCYTE # 1.2 TH/MM3 (1.0-4.8); MEAN CELL VOLUME 93.2 FL (80.0-100.0); MEAN CORPUSCULAR HEMOGLOBIN 31.8 PG (27.0-34.0); MEAN CORPUSCULAR HGB CONC 34.1 % (32.0-36.0); MONO % 10.1 % (0.0-8.0); NEUT % 80.7 % (16.0-70.0); PLATELET COUNT 306 TH/MM3 (150-450); RED BLOOD COUNT 4.67 MIL/MM3 (4.50-5.90); RED CELL DISTRIBUTION WIDTH 13.3 % (11.6-17.2); WHITE BLOOD COUNT 13.7 TH/MM3 (4.0-11.0)
[2017-02-05 18:58] LABS: BICARBONATE 23.8 MEQ/L (21.0-32.0); POTASSIUM 3.8 MEQ/L (3.5-5.1)
[2017-02-06] VITALS (10 sets, daily range): BP systolic 118–139; BP diastolic 76–82; PULSE 69–90; RESP 16–18; TEMP 96.2–98.2; O2SAT 95–97
[2017-02-06] MEDS: LEVOFLOXACIN 750 MG PREMIX INJ 150 ML IV SCH (04:27)
[2017-02-06] MEDS: SODIUM CHLORIDE 0.9% FLUSH 10 ML FLUSH IV FLUSH SCH ×2 (04:28→08:51)
[2017-02-06] MEDS: amLODIPine BESYLATE 5 MG TAB PO SCH (08:51)
[2017-02-06] MEDS ORDERED: ACETAMINOPHEN/HYDROcodone 325 MG/5 MG TAB PO PRN (09:45)
[2017-02-06] MEDS ORDERED: ACETAMINOPHEN/HYDROcodone 325 MG/7.5 MG TAB PO PRN (09:45)
--- NOTE | 2017-02-06 09:56 | HHI.DCPOC ---
Discharge Care Plan Diagnosis: (1) Renal mass (2) Hematuria (3) Leukocytosis (4) Pneumonia Goals to Promote Your Health * To prevent worsening of your condition and complications * To maintain your health at the optimal level Directions to Meet Your Goals Take your medications as prescribed Follow your dietary instruction Follow activity as directed Keep your appointments as scheduled Take your immunizations and boosters as scheduled If your symptoms worsen call your PCP, if no PCP go to Urgent Care Center or Emergency Room Smoking is Dangerous to Your Health. Avoid second hand smoke Call the 24-hour hour crisis hotline for domestic abuse at Adrian Fox MD Feb 06, 2017 09:56
[2017-02-06] MEDS ORDERED: HYDR-3516 PO ×2 (10:04→18:04)
[2017-02-06] MEDS ORDERED: AMLO5 PO (10:04)
[2017-02-06] MEDS ORDERED: [UNRECOGNIZED DRUG - SUPPLY] (10:04)
[2017-02-06] MEDS ORDERED: LEVO750T3 PO (10:04)
--- NOTE | 2017-02-06 10:08 | HHI.DS ---
Discharge Summary Admission Date Feb 02, 2017 at 22:53 Discharge Date: Feb 06, 2017 Admitting Diagnosis GROSS HEMATURIA DUE TO NEWLY DIAGNOSED RENAL CA (1) Renal mass ICD Code: N28.89 (2) Hematuria ICD Code: R31.9 (3) Leukocytosis ICD Code: D72.829 (4) Pneumonia ICD Code: J18.9 Procedures None Brief History - From Admission Written by Carolina Denton, acting as scribe for Dr. Velazquez on 02/03/17 at 02:23. Symptoms: The patient reports that he started urinating blood Then he passed clots followed by severe suprapubic pain with attempted urination Symptoms started at 6 p.m. on 02/02/17 and have now resolved Denies dizziness, chest pain, shortness of breath, nausea, vomiting, diarrhea, black or red stools, fevers. CBC/BMP: 02/05/17 1635 02/05/17 1635 Significant Findings Laboratory Tests Test 02/04/17 02/04/17 02/05/17 01:10 02:04 16:35 Urine Ketones 40 mg/dL (NEG) Urine Occult Blood LARGE (NEG) Urine RBC 17 /hpf (0-3) Urine Mucus FEW /lpf (OCC) White Blood Count 20.9 TH/MM3 13.7 TH/MM3 (4.0-11.0) (4.0-11.0) Red Blood Count 4.48 MIL/MM3 (4.50-5.90) Neutrophils (%) (Auto) 89.2 % 80.7 % (16.0-70.0) (16.0-70.0) Lymphocytes (%) (Auto) 3.5 % 8.7 % (9.0-44.0) (9.0-44.0) Neutrophils # (Auto) 18.7 TH/MM3 11.0 TH/MM3 (1.8-7.7) (1.8-7.7) Lymphocytes # (Auto) 0.7 TH/MM3 (1.0-4.8) Monocytes # (Auto) 1.5 TH/MM3 1.4 TH/MM3 (0-0.9) (0-0.9) Blood Urea Nitrogen 22 MG/DL (7-18) 22 MG/DL (7-18) Creatinine 1.36 MG/DL (0.60-1.30) Estimat Glomerular Filtration 52 ML/MIN (>89) 59 ML/MIN (>89) Rate Random Glucose 136 MG/DL (74-106) Monocytes (%) (Auto) 10.1 % (0.0-8.0) Sodium Level 134 MEQ/L (136-145) Imaging Last Impressions Chest X-Ray 02/04/17 0000 Signed Impressions: Service Date/Time: Saturday, February 04, 2017 00:52 - CONCLUSION: Bibasilar patchy infiltrates. Jonathan Lopez MD Abdomen/Pelvis CT 02/02/172127 Signed Impressions: Service Date/Time: January 21:50 - CONCLUSION: Enhancing pedunculated 6 cm mass right kidney consistent with renal cell carcinoma. Presumed moderate clot retention in the renal pelvis. Bong Herrera MD FACR PE at Discharge General: No acute distress. Heart: Regular rate and rhythm. No murmur. Lungs: Mild bibasilar crackles, right greater than left. Breathing is nonlabored. Abdomen: Soft, nontender, nondistended. Extremities: No lower extremity edema. Psych: Alert and oriented. Pt update on day of discharge The patient states that he feels better today. Hematuria has improved. Denies chest pain, dyspnea, cough. Has been ambulating without difficulty. Hospital Course The patient was admitted for further management of renal mass, hematuria. Urology was consulted. Benites catheter was placed. H&H remained stable. He developed fever and leukocytosis. Chest x-ray showed infiltrates. He was placed on antibiotics for treatment of pneumonia. The hematuria improved throughout the hospitalization. He was felt to be stable for discharge home. He was advised to follow-up with urology as soon as possible. His had contacted the patient's primary care physician, who faxed a referral to a urologist who is closer to their home and is also on their insurance plan. Pt Condition on Discharge: Stable Discharge Disposition: Discharge Home Discharge Time: > 30 minutes Discharge Instructions DIET: Follow Instructions for: Heart Healthy Diet Activities you can perform: Regular-No Restrictions Follow up Referrals: PCP Follow-up - 02/13/17 with Braeden Kay MD Urology - 3-5 Days with Hipolito Foster M.d. New Medications: Levofloxacin (Levofloxacin) 750 Mg Tablet 750 MG PO DAILY Infection #7 Ref 0 TAB Urinary Leg Bag (Urinary Leg Bag) 1 Mis Mis 1 EA .ROUTE DIRECTED #1 EA Amlodipine (Norvasc) 5 Mg Tab 5 MG PO DAILY Blood Pressure Management #30 Ref 0 TAB Hydrocodone-Acetaminophen (Hydrocodone-Acetaminophen) 5-325 mg Tab 1 TAB PO Q4H PRN PAIN SCALE 1 TO 10 #20 Ref 0 TAB Adrian Fox MD Feb 06, 2017 10:08
[2017-02-06 15:21] LABS: AUTOMATED NEUTROPHIL # 8.5 TH/MM3 (1.8-7.7); BASOPHIL % 0.3 % (0.0-2.0); EOSINOPHIL # 0.1 TH/MM3 (0-0.4); HEMATOCRIT 44.1 % (39.0-51.0); HEMO FLAGS DIFF FINAL; LYMPH % 10.1 % (9.0-44.0); LYMPHOCYTE # 1.1 TH/MM3 (1.0-4.8); MEAN CELL VOLUME 93.9 FL (80.0-100.0); MEAN CORPUSCULAR HEMOGLOBIN 31.8 PG (27.0-34.0); MEAN CORPUSCULAR HGB CONC 33.9 % (32.0-36.0); MONO % 8.9 % (0.0-8.0); NEUT % 79.7 % (16.0-70.0); PLATELET COUNT 263 TH/MM3 (150-450); RED BLOOD COUNT 4.69 MIL/MM3 (4.50-5.90); RED CELL DISTRIBUTION WIDTH 13.1 % (11.6-17.2); WHITE BLOOD COUNT 10.6 TH/MM3 (4.0-11.0)
[2017-02-06 15:51] LABS: BICARBONATE 25.5 MEQ/L (21.0-32.0); POTASSIUM 3.7 MEQ/L (3.5-5.1)
[2017-02-06] MEDS ORDERED: BISACODYL 10 MG SUPP RECTAL PRN (16:00)
[2017-02-06] MEDS ORDERED: SENNOSIDES 8.6 MG TAB PO PRN (16:00)
[2017-02-06] MEDS ORDERED: LACTULOSE SYRUP 20 GM/30 ML CUP PO PRN (16:00)
[2017-02-06] MEDS ORDERED: MAGNESIUM HYDROXIDE SUSP 30 ML CUP PO PRN (16:00)
[2017-02-06] MEDS ORDERED: DOCUSATE SODIUM 50 MG/SENNA 8.6 MG TAB PO SCH (21:00)
== END 2017-02-06 18:21 | disposition home or self-care (01) | DRG 686 ==
LOC: NEPD 21:07 → NEDA 22:53 → HOCB 02-03 00:19
PROVIDERS: ADMIT Family Medicine; ATTEND Family Medicine
DX: C64.1 Malignant neoplasm of right kidney, except renal pelvis (principal); J18.9 Pneumonia, unspecified organism; R31.0 Gross hematuria; N28.1 Cyst of kidney, acquired; Z87.891 Personal history of nicotine dependence
CPT/HCPCS: 51702; 71010; 74178; 80048; 80053; 81001; 85014; 85018; 85025; 87040; 96361; 96374; 96375; J1170; J1885; J1956; J2405; J7030; Q9967

== ENCOUNTER 2017-02-07 09:27 | Emergency (ER) | payer MEDICARE ==
[~2017-02-07] VITALS: Ht 172.7 cm; Wt 85.0 kg
[~2017-02-07 09:27] MED LIST changes: +AMLO5 PO; +HYDR-3516 PO; -IBUP-232 PO; +LEVO750T3 PO; -LORT5TAB PO; -Z.0.NO CURRENT MEDS; +[UNRECOGNIZED DRUG - SUPPLY]
[2017-02-07 09:29] VITALS: BP 146/97; PULSE 101; RESP 20; TEMP 98.5; O2SAT 96
[2017-02-07] MEDS ORDERED: ACETAMINOPHEN 325 MG TAB PO ONE (10:00)
[2017-02-07 10:27] LABS: AUTOMATED NEUTROPHIL # 7.6 TH/MM3 (1.8-7.7); BASOPHIL % 0.4 % (0.0-2.0); EOSINOPHIL # 0.1 TH/MM3 (0-0.4); EOSINOPHIL % 0.9 % (0.0-4.0); HEMATOCRIT 41.4 % (39.0-51.0); HEMO FLAGS DIFF FINAL; LYMPH % 9.4 % (9.0-44.0); LYMPHOCYTE # 0.9 TH/MM3 (1.0-4.8); MEAN CELL VOLUME 93.1 FL (80.0-100.0); MEAN CORPUSCULAR HEMOGLOBIN 31.6 PG (27.0-34.0); MEAN CORPUSCULAR HGB CONC 33.9 % (32.0-36.0); MONO % 9.1 % (0.0-8.0); NEUT % 80.2 % (16.0-70.0); PLATELET COUNT 328 TH/MM3 (150-450); RED BLOOD COUNT 4.45 MIL/MM3 (4.50-5.90); RED CELL DISTRIBUTION WIDTH 13.3 % (11.6-17.2); WHITE BLOOD COUNT 9.5 TH/MM3 (4.0-11.0)
--- NOTE | 2017-02-07 10:37 | RADRPT ---
EXAM DATE/TIME: 02/07/2017 10:13 [facility] COMPARISON: No previous studies available for comparison. INDICATIONS : Left leg pain and edema. MEDICAL HISTORY : Hypertension. Kidney cancer. SURGICAL HISTORY : Vasectomy and reversal. ENCOUNTER: Initial ACUITY: 1 day PAIN SCORE: 6/10 LOCATION: Left leg. TECHNIQUE: Venous ultrasound of the leg was performed from the inguinal ligament to the proximal calf. Real-juancarlos e, color Doppler and spectral tracing, compression and augmentation techniques were used. FINDINGS: There is normal compressibility of the deep venous system from the inguinal region to the proximal ca lf. No echogenic clot is seen in the lumen of the common femoral, femoral, popliteal, and posterior tibial veins. There is a normal response of the venous system to proximal and distal augmentation an d respiration. CONCLUSION: 1. No DVT identified. Yunior Herrera MD on February 07, 2017 at 10:35 Board Certified Radiologist. This report was verified electronically.
[2017-02-07 10:41] LABS: APTT (PATIENT) 29.2 SEC (24.3-30.1); PROTHROMBIN TIME - PATIENT 11.2 SEC (9.8-11.6)
--- NOTE | 2017-02-07 11:14 | PD ---
HPI Chief Complaint: Musculoskeletal Complaint Time Seen by Provider: 09:48 Travel History International Travel<30 days: No Contact w/Intl Traveler<30days: No Traveled to known affect area: No History of Present Illness HPI The patient is a 66-year-old male who presents emergency department for left calf pain. The patient states he was recently admitted to the hospital for hematuria and subsequently had a CT the abdomen and pelvis and was diagnosed with probable renal cell carcinoma. The patient has not undergone biopsy, has been seen by urology and may undergo surgery for the renal cell carcinoma in the near future. However, he does not currently have an operative date set. The patient was discharged home from the hospital yesterday, but presents today complaining of left calf pain. The patient is worried he may have a DVT in the left lower extremity. He is unsure if he was anticoagulated while he was in the hospital on his previous admission. He denies any history DVT to left lower extremity. The pain is located over the left calf, he notes minimal edema , denies any erythema. Symptoms are mild to moderate, there are no current alleviating or exacerbating factors. PFSH Past Medical History Blood Disorders: No Cancer: Yes (Kidney CA) Cardiovascular Problems: Yes Chemotherapy: No Diminished Hearing: No Endocrine: No Gastrointestinal Disorders: No Genitourinary: Yes (Cyst on Right kidney) Hypertension: Yes Immune Disorder: No Musculoskeletal: No Neurologic: No Psychiatric: No Respiratory: No Immunizations Current: Yes Radiation Therapy: No Past Surgical History AICD: No Genitourinary Surgery: Yes (VASECTOMY AND REVERSAL) Joint Replacement: No Pacemaker: No Other Surgery: No Social History Alcohol Use: Yes (OCC) Tobacco Use: No Substance Use: No Allergies-Medications (Allergen,Severity, Reaction): Coded Allergies: No Known Allergies (Verified , 02/07/17) Reported Meds & Prescriptions Reported Meds & Active Scripts Active Hydrocodone-Acetaminophen 5-325 mg Tab 1 Tab PO Q4H PRN Urinary Leg Bag 1 Mis Mis 1 Ea .ROUTE DIRECTED Levofloxacin 750 Mg Tablet 750 Mg PO DAILY Norvasc (Amlodipine Besylate) 5 Mg Tab 5 Mg PO DAILY Review of Systems Except as stated in HPI: all other systems reviewed are Neg Genitourinary: Positive: Hematuria Musculoskeletal: Positive: Edema, Pain Neurologic: No: Paresthesia, Sensory Disturbance Physical Exam Narrative GENERAL: Awake, alert, pleasant 66-year-old male who appears his stated age and is in no acute respiratory distress. SKIN: Focused skin assessment warm/dry. HEAD: Atraumatic. Normocephalic. EYES: Pupils equal and round. No scleral icterus. No injection or drainage. ENT: No nasal bleeding or discharge. Mucous membranes pink and moist. NECK: Trachea midline. No JVD. MUSCULOSKELETAL: Mild tenderness of the posterior aspect the left calf, negative Homans sign. No obvious edema or erythema. Positive distal pulses. Leg bag attached to the right lower extremity. NEUROLOGICAL: Awake and alert. No obvious cranial nerve deficits. Motor grossly within normal limits. Normal speech. PSYCHIATRIC: Appropriate mood and affect; insight and judgment normal. Data Data Last Documented VS Vital Signs Date Time Temp Pulse Resp B/P Pulse Ox O2 Delivery O2 Flow Rate FiO2 02/07/17 11:30 70 15 144/74 96 Room Air 02/07/17 09:29 98.5 Orders Complete Blood Count With Diff (02/07/17 09:48) Basic Metabolic Panel (Bmp) (02/07/17 09:48) Act Partial Throm Time (Ptt) (02/07/17 09:48) Prothrombin Time / Inr (Pt) (02/07/17 09:48) Acetaminophen (Tylenol) (02/07/17 10:00) Us Leg Venous Doppler (02/07/17 ) Labs Laboratory Tests Test 02/07/17 02/07/17 10:07 10:55 White Blood Count 9.5 TH/MM3 Red Blood Count 4.45 MIL/MM3 Hemoglobin 14.1 GM/DL Hematocrit 41.4 % Mean Corpuscular Volume 93.1 FL Mean Corpuscular Hemoglobin 31.6 PG Mean Corpuscular Hemoglobin 33.9 % Concent Red Cell Distribution Width 13.3 % Platelet Count 328 TH/MM3 Mean Platelet Volume 8.6 FL Neutrophils (%) (Auto) 80.2 % Lymphocytes (%) (Auto) 9.4 % Monocytes (%) (Auto) 9.1 % Eosinophils (%) (Auto) 0.9 % Basophils (%) (Auto) 0.4 % Neutrophils # (Auto) 7.6 TH/MM3 Lymphocytes # (Auto) 0.9 TH/MM3 Monocytes # (Auto) 0.9 TH/MM3 Eosinophils # (Auto) 0.1 TH/MM3 Basophils # (Auto) 0.0 TH/MM3 CBC Comment DIFF FINAL Differential Comment Prothrombin Time 11.2 SEC Prothromb Time International 1.0 RATIO Ratio Activated Partial 29.2 SEC Thromboplast Time Sodium Level 140 MEQ/L Potassium Level 4.2 MEQ/L Chloride Level 106 MEQ/L Carbon Dioxide Level 25.6 MEQ/L Anion Gap 8 MEQ/L Blood Urea Nitrogen 24 MG/DL Creatinine 1.13 MG/DL Estimat Glomerular Filtration 65 ML/MIN Rate Random Glucose 78 MG/DL Calcium Level 9.9 MG/DL MDM Medical Decision Making Medical Screen Exam Complete: Yes Emergency Medical Condition: Yes Medical Record Reviewed: Yes Interpretation(s) Last Impressions Lower Extremity Ultrasound 02/07/17 0000 Signed Impressions: Service Date/Time: Tuesday, February 07, 2017 10:13 - CONCLUSION: 1. No DVT identified. Yunior Herrera MD Laboratory Tests Test 02/07/17 02/07/17 10:07 10:55 White Blood Count 9.5 TH/MM3 Red Blood Count 4.45 MIL/MM3 Hemoglobin 14.1 GM/DL Hematocrit 41.4 % Mean Corpuscular Volume 93.1 FL Mean Corpuscular Hemoglobin 31.6 PG Mean Corpuscular Hemoglobin 33.9 % Concent Red Cell Distribution Width 13.3 % Platelet Count 328 TH/MM3 Mean Platelet Volume 8.6 FL Neutrophils (%) (Auto) 80.2 % Lymphocytes (%) (Auto) 9.4 % Monocytes (%) (Auto) 9.1 % Eosinophils (%) (Auto) 0.9 % Basophils (%) (Auto) 0.4 % Neutrophils # (Auto) 7.6 TH/MM3 Lymphocytes # (Auto) 0.9 TH/MM3 Monocytes # (Auto) 0.9 TH/MM3 Eosinophils # (Auto) 0.1 TH/MM3 Basophils # (Auto) 0.0 TH/MM3 CBC Comment DIFF FINAL Differential Comment Prothrombin Time 11.2 SEC Prothromb Time International 1.0 RATIO Ratio Activated Partial 29.2 SEC Thromboplast Time Sodium Level 140 MEQ/L Potassium Level 4.2 MEQ/L Chloride Level 106 MEQ/L Carbon Dioxide Level 25.6 MEQ/L Anion Gap 8 MEQ/L Blood Urea Nitrogen 24 MG/DL Creatinine 1.13 MG/DL Estimat Glomerular Filtration 65 ML/MIN Rate Random Glucose 78 MG/DL Calcium Level 9.9 MG/DL Differential Diagnosis Differential diagnosis includes DVT, superficial thrombophlebitis, strain, sprain, electrolyte abnormality. Narrative Course IV was established, labs are drawn and sent, and the patient was placed on cardiac telemetry monitoring and continuous pulse oximetry monitoring. The patient was administered Tylenol orally for pain. Ultrasound of the left lower extremity was obtained, was negative for DVT. Labs are unremarkable. The patient stable for outpatient follow-up in regards to his renal cell carcinoma with his urologist, Dr. Agrawal. Diagnosis Primary Impression: Left leg pain Patient Instructions: General Instructions Additional Instructions: Please provide the patient a copy of his labs and ultrasound results at discharge. Follow-up with your urologist. Return if symptoms worsen or progress. Med/Other Pt SpecificInfo: No Change to Meds Disposition: 01 DISCHARGE HOME Condition: Stable Tio Swenson MD Feb 07, 2017 11:14
[2017-02-07 11:30] VITALS: BP 144/74; PULSE 70; RESP 15; O2SAT 96
[2017-02-07 11:45] LABS: BICARBONATE 25.6 MEQ/L (21.0-32.0); POTASSIUM 4.2 MEQ/L (3.5-5.1)
== END 2017-02-07 12:12 | disposition home or self-care (01) ==
LOC: NEPD 09:27
DX: M79.662 Pain in left lower leg (principal); I10 Essential (primary) hypertension
CPT/HCPCS: 80048; 85025; 85610; 85730; 93971; 99284

== ENCOUNTER 2017-03-23 19:52 | Inpatient (IN) | payer MEDICARE ==
[~2017-03-23] VITALS: Ht 172.7 cm; Wt 80.0 kg
[2017-03-23 19:54] VITALS: BP 190/87; PULSE 84; RESP 18; TEMP 98.4; O2SAT 98
[2017-03-23] MEDS ORDERED: SODIUM CHLORIDE 0.9% FLUSH 10 ML FLUSH IVF PRN (20:30)
[2017-03-23] MEDS ORDERED: ONDANSETRON HCL 4 MG/2 ML VIAL IV PUSH ONE (20:30)
[2017-03-23] MEDS ORDERED: SODIUM CHLOR 0.9% 1000 ML INJ 1,000 ML IV ONE (20:30)
[2017-03-23] MEDS ORDERED: HYDROmorphone HCL PF 1 MG/ML VIAL IV PUSH ONE (20:30)
--- NOTE | 2017-03-23 20:41 | PD ---
HPI Chief Complaint: Complaint Time Seen by Provider: 20:27 Travel History International Travel<30 days: No Contact w/Intl Traveler<30days: No Traveled to known affect area: No History of Present Illness HPI patient known diagnosed for renal cell ca, patient has a follow up appointment for formal renal mass resection (radical nephrectomy) by dr burroughs on april 04. today had acute onset of gross hematuria at 6pm, and originally able to pee "clots" but now he has been unable to urinate over last hour or so and has suprapubic pain/pressure, 8/, nonrad. denies fever/flank pain/n/v/d/ PCP DR DA [facility]IC[facility] DR BURROUGHS(PERFORMED URETHRAL DILATION PREVIOUSLY AND CYSTOSCOPY) PFSH Past Medical History Blood Disorders: No Cancer: Yes (Kidney CA) Cardiovascular Problems: Yes Chemotherapy: No Diminished Hearing: No Endocrine: No Gastrointestinal Disorders: No Genitourinary: Yes (Cyst on Right kidney) Hypertension: Yes Immune Disorder: No Musculoskeletal: No Neurologic: No Psychiatric: No Respiratory: No Immunizations Current: Yes Radiation Therapy: No Past Surgical History AICD: No Genitourinary Surgery: Yes (VASECTOMY AND REVERSAL) Joint Replacement: No Pacemaker: No Other Surgery: No Social History Alcohol Use: Yes (OCC) Tobacco Use: No Substance Use: No Allergies-Medications (Allergen,Severity, Reaction): Coded Allergies: No Known Allergies (Verified , 03/23/17) Reported Meds & Prescriptions Reported Meds & Active Scripts Active Norvasc (Amlodipine Besylate) 5 Mg Tab 5 Mg PO DAILY Review of Systems Except as stated in HPI: all other systems reviewed are Neg Genitourinary: Positive: Decreased Urinary Output (urinary retention with hematuria) Physical Exam Narrative GENERAL: SKIN: Warm and dry. HEAD: Atraumatic. Normocephalic. EYES: Pupils equal and round. No scleral icterus. No injection or drainage. ENT: No nasal bleeding or discharge. Mucous membranes pink and moist. NECK: Trachea midline. No JVD. CARDIOVASCULAR: Regular rate and rhythm. RESPIRATORY: No accessory muscle use. Clear to auscultation. Breath sounds equal bilaterally. GASTROINTESTINAL: Abdomen soft, but suprapubic fullness and tenderness to palpation MUSCULOSKELETAL: Extremities without clubbing, cyanosis, or edema. No obvious deformities. NEUROLOGICAL: Awake and alert. No obvious cranial nerve deficits. Motor grossly within normal limits. Five out of 5 muscle strength in the arms and legs. Normal speech. PSYCHIATRIC: Appropriate mood and affect; insight and judgment normal. Data Data Last Documented VS Vital Signs Date Time Temp Pulse Resp B/P (MAP) Pulse Ox O2 Delivery O2 Flow Rate FiO2 03/23/17 19:54 98.4 84 18 190/87 (121) 98 Room Air Orders Orders Complete Blood Count With Diff (03/23/17 20:27) Basic Metabolic Panel (Bmp) (03/23/17 20:27) Urinalysis - C+S If Indicated (03/23/17 20:27) Ecg Monitoring (03/23/17 20:27) Iv Access Insert/Monitor (03/23/17 20:27) Sodium Chloride 0.9% Flush (Ns Flush) (03/23/17 20:30) Bladder/Catheter Irrigation (03/23/17 20:27) Sodium Chlor 0.9% 1000 Ml Inj (Ns 1000 M (03/23/17 20:30) Hydromorphone Pf Inj (Dilaudid Pf Inj) (03/23/17 20:30) Ondansetron Inj (Zofran Inj) (03/23/17 20:30) Labs Laboratory Tests Test 03/23/17 20:50 White Blood Count 8.0 TH/MM3 Red Blood Count 4.41 MIL/MM3 Hemoglobin 13.8 GM/DL Hematocrit 40.9 % Mean Corpuscular Volume 92.7 FL Mean Corpuscular Hemoglobin 31.3 PG Mean Corpuscular Hemoglobin Concent 33.7 % Red Cell Distribution Width 13.0 % Platelet Count 307 TH/MM3 Mean Platelet Volume 8.5 FL Neutrophils (%) (Auto) 59.0 % Lymphocytes (%) (Auto) 25.9 % Monocytes (%) (Auto) 7.8 % Eosinophils (%) (Auto) 6.5 % Basophils (%) (Auto) 0.8 % Neutrophils # (Auto) 4.7 TH/MM3 Lymphocytes # (Auto) 2.1 TH/MM3 Monocytes # (Auto) 0.6 TH/MM3 Eosinophils # (Auto) 0.5 TH/MM3 Basophils # (Auto) 0.1 TH/MM3 CBC Comment DIFF FINAL Differential Comment MDM Medical Decision Making Medical Screen Exam Complete: Yes Emergency Medical Condition: Yes Medical Record Reviewed: Yes Differential Diagnosis urinary retention due to gross hematuria v uti v renal failure Narrative Course patient will have three way zazueta for cbi, will check creatiinine and c/w previous values over the last month or so, if patient's creatinine stable, h/h stable and cbi clears urine then will be able to go home however if any of the above abnl then will admit for observation. Physician Communication Physician Communication DR PERALTA WHO RECC TO KEEP PATIENT FOR OBS, NPO AFTER MIDNIGHT AND WILL PERFORM DILATION/CYSTOSCOPY IN AM. THROUGHOUT NIGHT CAN CONTINUE DOING MANUAL IRRIGATION TO ALLOW URINATION. Diagnosis Primary Impression: urinary retention due to gross hematuria Admitting Information Admitting Physician Requests: Observation Condition: Stable Dangelo Davison MD Mar 23, 2017 20:41
[2017-03-23 21:05] LABS: AUTOMATED NEUTROPHIL # 4.7 TH/MM3 (1.8-7.7); BASOPHIL # 0.1 TH/MM3 (0-0.2); BASOPHIL % 0.8 % (0.0-2.0); EOSINOPHIL # 0.5 TH/MM3 (0-0.4); EOSINOPHIL % 6.5 % (0.0-4.0); HEMATOCRIT 40.9 % (39.0-51.0); HEMO FLAGS DIFF FINAL; LYMPH % 25.9 % (9.0-44.0); LYMPHOCYTE # 2.1 TH/MM3 (1.0-4.8); MEAN CELL VOLUME 92.7 FL (80.0-100.0); MEAN CORPUSCULAR HEMOGLOBIN 31.3 PG (27.0-34.0); MEAN CORPUSCULAR HGB CONC 33.7 % (32.0-36.0); MONO % 7.8 % (0.0-8.0); PLATELET COUNT 307 TH/MM3 (150-450); RED BLOOD COUNT 4.41 MIL/MM3 (4.50-5.90)
[2017-03-23 21:13] LABS: BACTERIA, URINE OCC /hpf; BLOOD, URINE LARGE (NEG); COMMENT (UR) CULT NOT INDICATED; CULTURE IF INDICATED CULT NOT INDICATED; GLUCOSE,URINE NEG (NEG); KETONE, URINE 10 mg/dL (NEG); NITRITE,URINE NEG (NEG); PH, URINE 6.5 (5.0-8.5); URINE COLOR RED (YELLW/STRAW)
[2017-03-23 21:24] LABS: BICARBONATE 24.8 MEQ/L (21.0-32.0); POTASSIUM 3.8 MEQ/L (3.5-5.1)
[2017-03-23] MEDS ORDERED: SODIUM CHLORIDE 0.9% FLUSH 10 ML FLUSH IV FLUSH PRN (21:30)
[2017-03-23] MEDS ORDERED: NALOXONE HCL 0.4 MG/ML AMP IV PUSH PRN (21:30)
[2017-03-23 22:36] VITALS: BP 138/60; PULSE 82; RESP 16; O2SAT 98
[2017-03-23 22:50] VITALS: BP 158/84; PULSE 84; RESP 17; TEMP 97; O2SAT 97
[2017-03-23] MEDS: HYDROmorphone HCL PF 1 MG/ML VIAL IV PUSH PRN (23:40)
[2017-03-24 04:05] VITALS: BP 127/87; PULSE 78; RESP 16; TEMP 98.1; O2SAT 96
[2017-03-24] MEDS: HYDROmorphone HCL PF 1 MG/ML VIAL IV PUSH PRN ×2 (04:09→08:50)
--- NOTE | 2017-03-24 05:02 | HHI.HP ---
[facility] Braeden Kay MD Admission Diagnosis URINARY RETENTION DUE TO GROSS HEMATURIA FROM RENAL CELL CA Diagnoses: Chief Complaint: urinary retention and hematuria Travel History International Travel<30 Days: No Contact w/Intl Traveler <30 Da: No Traveled to Known Affected Are: No History of Present Illness Written by CHANDA Bear acting as scribe for [Caroline] on 03/24/17 at 04: 56. 66 y/o male with a history of HTN, renal cancer, urethral stricture presented to the ED with complaints of gross hematuria for 1 day. Patient states he passed clots and then was unable to urinate. In the ED a syringe was used to irrigate the bladder and patient was able to void. Patient does have a history of urethral stricture so urologist Dr. Martin semiconductor equipment technician was contacted and dilation is planned for am. Patient denies any chest pain, sob, fever or chills. He does complain of pain when he does urinate. Urologist: Dr. Agrawal Review of Systems Except as stated in HPI: all other systems reviewed are Neg Past Family Social History Past Medical History HTN Renal cell carcinoma Past Surgical History Cystoscopy vasectomy Reported Medications Reported Meds & Active Scripts Active Norvasc (Amlodipine Besylate) 5 Mg Tab 5 Mg PO DAILY Allergies: Coded Allergies: No Known Allergies (Verified , 03/23/17) Active Ordered Medications Current Medications Medications (Trade) Dose Ordered Sig/Leigh Route Start Time Stop Time Status Last Admin (NS Flush) 2 ml UNSCH PRN IV FLUSH 03/23/17 21:30 (NS Flush) 2 ml BID IV FLUSH 03/24/17 09:00 (Narcan Inj) 0.4 mg UNSCH PRN IV PUSH 03/23/17 21:30 (Dilaudid Pf Inj) 0.5 mg Q4H PRN IV PUSH 03/23/17 23:30 03/24/17 04:09 Family History Mom and Dad: Heart disease Social History Tobacco use: Denies Alcohol use: occasionally Physical Exam Vital Signs Vital Signs Date Time Temp Pulse Resp B/P (MAP) Pulse Ox O2 Delivery O2 Flow Rate FiO2 03/24/17 04:05 98.1 78 16 127/87 (100) 96 03/23/17 22:50 97.0 84 17 158/84 (108) 97 03/23/17 22:36 82 16 138/60 (86) 98 Room Air 03/23/17 19:54 98.4 84 18 190/87 (121) 98 Room Air Physical Exam GENERAL: This is a well-nourished, well-developed patient, in no apparent distress. SKIN: No rashes, ecchymoses or lesions. Cool and dry. HEAD: Atraumatic. Normocephalic. EYES: Pupils equal round and reactive. ENT: Nose without bleeding, purulent drainage or septal hematoma. Airway patent. NECK: Trachea midline. No JVD CARDIOVASCULAR: Regular rate and rhythm without murmurs, gallops, or rubs. RESPIRATORY: Clear to auscultation. Breath sounds equal bilaterally. No wheezes , rales, or rhonchi. GASTROINTESTINAL: Abdomen soft, non-tender, nondistended. MUSCULOSKELETAL: Extremities without clubbing, cyanosis, or edema No calf tenderness. NEUROLOGICAL: Awake and alert. Motor and sensory grossly within normal limits. Normal speech. Laboratory Laboratory Tests Test 03/23/17 20:50 White Blood Count 8.0 Red Blood Count 4.41 Hemoglobin 13.8 Hematocrit 40.9 Mean Corpuscular Volume 92.7 Mean Corpuscular Hemoglobin 31.3 Mean Corpuscular Hemoglobin Concent 33.7 Red Cell Distribution Width 13.0 Platelet Count 307 Mean Platelet Volume 8.5 Neutrophils (%) (Auto) 59.0 Lymphocytes (%) (Auto) 25.9 Monocytes (%) (Auto) 7.8 Eosinophils (%) (Auto) 6.5 Basophils (%) (Auto) 0.8 Neutrophils # (Auto) 4.7 Lymphocytes # (Auto) 2.1 Monocytes # (Auto) 0.6 Eosinophils # (Auto) 0.5 Basophils # (Auto) 0.1 CBC Comment DIFF FINAL Differential Comment Urine Color RED Urine Turbidity HAZY Urine pH 6.5 Urine Specific [place] 1.010 Urine Protein 100 Urine Glucose (UA) NEG Urine Ketones 10 Urine Occult Blood LARGE Urine Nitrite NEG Urine Bilirubin NEG Urine Urobilinogen LESS THAN 2.0 Urine Leukocyte Esterase SMALL Urine RBC Urine WBC 6 Urine Amorphous Sediment RARE Urine Bacteria OCC Microscopic Urinalysis Comment CULT NOT INDICATED Blood Urea Nitrogen 17 Creatinine 1.18 Random Glucose 99 Calcium Level 10.2 Sodium Level 141 Potassium Level 3.8 Chloride Level 110 Carbon Dioxide Level 24.8 Anion Gap 6 Estimat Glomerular Filtration Rate 62 Result Diagram: 03/23/17204903/23/172049 Caprini VTE Risk Assessment Caprini VTE Risk Assessment: Mod/High Risk (score >= 2) VTE Pharm Contraindication: Active bleeding Caprini Risk Assessment Model Point Value = 1 Point Value = 2 Point Value = 3 Point Value = 5 Age 41-60 Minor surgery BMI > 25 kg/m2 Swollen legs Varicose veins or History of unexplained or recurrent spontaneous Oral contraceptives or hormone replacement Sepsis (< 1 month) Serious lung disease, including pneumonia (< 1 month) Abnormal pulmonary function Acute myocardial infarction Congestive heart failure (< 1 month) History of inflammatory bowel disease Medical patient at bed rest Age 61-74 Arthroscopic surgery Major open surgery (> 45 min) Laparoscopic surgery (> 45 min) Malignancy Confined to bed (> 72 hours) Immobilizing plaster cast Central venous access Age >= 75 History of VTE Family history of VTE Factor V Leiden Prothrombin [id number] Lupus anticoagulant Anticardiolipin antibodies Elevated serum homocysteine Heparin-induced thrombocytopenia Other congenital or acquired thrombophilia Stroke (< 1 month) Elective arthroplasty Hip, pelvis, or leg fracture Acute spinal cord injury (< 1 month) Prophylaxis Regimen Total Risk Factor Score Risk Level Prophylaxis Regimen 0-1 Low Early ambulation 2 Moderate Order ONE of the following: *Sequential Compression Device (SCD) *Heparin 5000 units SQ BID 3-4 Higher Order ONE of the following medications: *Heparin 5000 units SQ TID *Enoxaparin/Lovenox 40 mg SQ daily (WT < 150 kg, CrCl > 30 mL/min) *Enoxaparin/Lovenox 30 mg SQ daily (WT < 150 kg, CrCl > 10-29 mL/min) *Enoxaparin/Lovenox 30 mg SQ BID (WT < 150 kg, CrCl > 30 mL/min) AND/OR *Sequential Compression Device (SCD) 5 or more Highest Order ONE of the following medications: *Heparin 5000 units SQ TID (Preferred with Epidurals) *Enoxaparin/Lovenox 40 mg SQ daily (WT < 150 kg, CrCl > 30 mL/min) *Enoxaparin/Lovenox 30 mg SQ daily (WT < 150 kg, CrCl > 10-29 mL/min) *Enoxaparin/Lovenox 30 mg SQ BID (WT < 150 kg, CrCl > 30 mL/min) AND *Sequential Compression Device (SCD) Assessment and Plan Problem List: (1) Hematuria ICD Code: R31.9 - Hematuria, unspecified Status: Acute Assessment and Plan 66 y/o male with a history of HTN, renal cancer, urethral stricture presented to the ED with complaints of gross hematuria for 1 day/ Hematuria, due to ureteral stricture and renal cell cancer, hgb 13.8 -Consult urology, dilation planned for AM -Bladder scan prn if patient unable to void -Pain management with IV Dilaudid HTN, chronic, controlled: Resume home amlodipine, monitor vitals DVT prophylaxis: SCDs This note was transcribed by treibamy [Sara Seay]. I, Dr. Rick Velazquez personally performed the history, physical exam, and medical decision making; and confirmed the accuracy of the information in the transcribed note. Authenticated by Dr. Rick Velazquez on 03/24/17 at 04:56. Discussed Condition With Patient Physician Certification 2 Midnight Certification Type: Admission for Inpatient Services Order for Inpatient Services The services are ordered in accordance with Medicare regulations or non- Medicare payer requirements, as applicable. In the case of services not specified as inpatient-only, they are appropriately provided as inpatient services in accordance with the 2-midnight benchmark. Estimated LOS (days): 2 days is the estimated time the patient will need to remain in the hospital, assuming treatment plan goals are met and no additional complications. Post-Hospital Plan: Sara Briggs Mar 24, 2017 05:02 Rick Velazquez MD Mar 24, 2017 10:41
[2017-03-24 08:00] VITALS: BP 130/73; PULSE 70; RESP 19; TEMP 96.7; O2SAT 98
[2017-03-24 08:45] VITALS: PULSE 70
[2017-03-24] MEDS ORDERED: amLODIPine BESYLATE 5 MG TAB PO SCH (09:00)
[2017-03-24] MEDS ORDERED: SODIUM CHLORIDE 0.9% FLUSH 10 ML FLUSH IV FLUSH SCH (09:00)
[2017-03-24 09:18] LABS: AUTOMATED NEUTROPHIL # 8.8 TH/MM3 (1.8-7.7); BASOPHIL # 0.1 TH/MM3 (0-0.2); BASOPHIL % 0.5 % (0.0-2.0); EOSINOPHIL # 0.3 TH/MM3 (0-0.4); EOSINOPHIL % 2.4 % (0.0-4.0); HEMATOCRIT 41.7 % (39.0-51.0); HEMO FLAGS DIFF FINAL; LYMPH % 13.2 % (9.0-44.0); LYMPHOCYTE # 1.6 TH/MM3 (1.0-4.8); MEAN CELL VOLUME 93.7 FL (80.0-100.0); MEAN CORPUSCULAR HEMOGLOBIN 32.8 PG (27.0-34.0); MONO % 9.6 % (0.0-8.0); NEUT % 74.3 % (16.0-70.0); PLATELET COUNT 293 TH/MM3 (150-450); RED BLOOD COUNT 4.46 MIL/MM3 (4.50-5.90); RED CELL DISTRIBUTION WIDTH 13.1 % (11.6-17.2); WHITE BLOOD COUNT 11.9 TH/MM3 (4.0-11.0)
--- NOTE | 2017-03-24 09:34 | PD.CONS ---
[facility] Service Urology Consult Requested By Reason for Consult Gross hematuria Primary Care Physician Braeden Kay MD Diagnosis: (1) Hematuria ICD Code: R31.9 - Hematuria, unspecified History of Present Illness 66-year-old gentleman who was recently diagnosed as having a right sided renal mass and scheduled to undergo a robot-assisted laparoscopic right radical nephrectomy on April 04 of this year who presented to the emergency room with acute onset gross hematuria with passage of small clots. An attempt was made to pass a Benites catheter while in the emergency room without success. Apparently the patient has a history of urethral stricture formation status post dilation in the past. In any event cystoscopy patient was able to void spontaneously a catheter was not placed and he was admitted for observation. At the time of consultation the patient reports that his urine had cleared and was voiding without any difficulty. Review of Systems Constitutional: DENIES: Fever, Weight loss, Chills Cardiovascular: DENIES: Chest pain Gastrointestinal: DENIES: Abdominal pain Genitourinary: COMPLAINS OF: Hematuria (now resolved) Except as stated in HPI: all other systems reviewed are Neg Past Family Social History Past Medical History Recently diagnosed with right renal mass Hypertension Past Surgical History Status post vasectomy Reported Medications Refer to EMR Allergies: Coded Allergies: No Known Allergies (Verified , 03/23/17) Active Ordered Medications Refer to EMR Family History Both parents with history coronary artery disease Social History Occasional alcohol use Denies tobacco or intravenous drug abuse history Physical Exam Vital Signs Date Time Temp Pulse Resp B/P (MAP) Pulse Ox O2 Delivery O2 Flow Rate FiO2 03/24/17 04:05 98.1 78 16 127/87 (100) 96 03/23/17 22:50 97.0 84 17 158/84 (108) 97 03/23/17 22:36 82 16 138/60 (86) 98 Room Air 03/23/17 19:54 98.4 84 18 190/87 (121) 98 Room Air Physical Exam GENERAL: This is a well-nourished, well-developed patient, in no apparent distress. SKIN: No rashes, ecchymoses or lesions. Cool and dry. HEAD: Atraumatic. Normocephalic. No temporal or scalp tenderness. EYES: Pupils equal round and reactive. Extraocular motions intact. No scleral icterus. No injection or drainage. ENT: Nose without bleeding, purulent drainage or septal hematoma. Throat without erythema, tonsillar hypertrophy or exudate. Uvula midline. Airway patent. NECK: Trachea midline. No JVD or lymphadenopathy. Supple, nontender, no meningeal signs. GASTROINTESTINAL: Abdomen soft, non-tender, nondistended. No hepato-splenomegaly , or palpable masses. No guarding. GENITOURINARY: Abdomen soft, nondistended nontender MUSCULOSKELETAL: Extremities without clubbing, cyanosis, or edema. No joint tenderness, effusion, or edema noted. No calf tenderness. Negative Homans sign bilaterally. NEUROLOGICAL: Awake and alert. Cranial nerves II through XII intact. Motor and sensory grossly within normal limits. Five out of 5 muscle strength in all muscle groups. Normal speech. Lab results reviewed: Yes Laboratory Tests Test 03/23/17 20:50 03/24/17 09:03 White Blood Count 8.0 11.9 Red Blood Count 4.41 4.46 Hemoglobin 13.8 14.6 Hematocrit 40.9 41.7 Mean Corpuscular Volume 92.7 93.7 Mean Corpuscular Hemoglobin 31.3 32.8 Mean Corpuscular Hemoglobin Concent 33.7 35.0 Red Cell Distribution Width 13.0 13.1 Platelet Count 307 293 Mean Platelet Volume 8.5 8.3 Neutrophils (%) (Auto) 59.0 74.3 Lymphocytes (%) (Auto) 25.9 13.2 Monocytes (%) (Auto) 7.8 9.6 Eosinophils (%) (Auto) 6.5 2.4 Basophils (%) (Auto) 0.8 0.5 Neutrophils # (Auto) 4.7 8.8 Lymphocytes # (Auto) 2.1 1.6 Monocytes # (Auto) 0.6 1.1 Eosinophils # (Auto) 0.5 0.3 Basophils # (Auto) 0.1 0.1 CBC Comment DIFF FINAL DIFF FINAL Differential Comment Urine Color RED Urine Turbidity HAZY Urine pH 6.5 Urine Specific [place] 1.010 Urine Protein 100 Urine Glucose (UA) NEG Urine Ketones 10 Urine Occult Blood LARGE Urine Nitrite NEG Urine Bilirubin NEG Urine Urobilinogen LESS THAN 2.0 Urine Leukocyte Esterase SMALL Urine RBC Urine WBC 6 Urine Amorphous Sediment RARE Urine Bacteria OCC Microscopic Urinalysis Comment CULT NOT INDICATED Blood Urea Nitrogen 17 Creatinine 1.18 Random Glucose 99 Calcium Level 10.2 Sodium Level 141 Potassium Level 3.8 Chloride Level 110 Carbon Dioxide Level 24.8 Anion Gap 6 Estimat Glomerular Filtration Rate 62 Hematology Comments Result Diagram: 03/24/17 0903 03/23/172049 Assessment and Plan Assessment and Plan Urologic impression: #1 Recent development of gross hematuria most likely related to bleeding from his known right renal mass which is now resolved. #2 history of urethral stricture #3 presently voiding without difficulty Recommendations: #1 urologic stable to discharge home #2 patient advised to refrain from alcohol beverages and strenuous activity #3 patient to keep his follow up with (scheduled for robot-assisted laparoscopic right radical nephrectomy on April 04) Manas Martin MD Mar 24, 2017 09:34
[2017-03-24 09:36] LABS: BICARBONATE 22.7 MEQ/L (21.0-32.0)
[2017-03-24 12:00] VITALS: BP 137/82; PULSE 76; RESP 17; TEMP 96.5; O2SAT 99
[2017-03-24] MEDS ORDERED: ACETAMINOPHEN/CODEINE 300 MG/30 MG TAB PO PRN (12:45)
--- NOTE | 2017-03-24 14:58 | HHI.DCPOC ---
Discharge Care Plan Diagnosis: (1) Renal mass (2) Hematuria Goals to Promote Your Health * To prevent worsening of your condition and complications * To maintain your health at the optimal level Directions to Meet Your Goals Take your medications as prescribed Follow your dietary instruction Follow activity as directed Keep your appointments as scheduled Take your immunizations and boosters as scheduled If your symptoms worsen call your PCP, if no PCP go to Urgent Care Center or Emergency Room Smoking is Dangerous to Your Health. Avoid second hand smoke Call the 24-hour hour crisis hotline for domestic abuse at Vik Ward MD Mar 24, 2017 14:58
[2017-03-24] MEDS ORDERED: SODIUM CHLOR 0.9% 1000 ML INJ 1,000 ML IV ONE (15:00)
[2017-03-24 16:00] VITALS: BP 138/76; PULSE 82; RESP 19; TEMP 97.4; O2SAT 94
== END 2017-03-24 19:14 | disposition home or self-care (01) | DRG 696 ==
LOC: NEPE 19:52 → NEDA 21:25 → OBSVTOIN 21:26 → N06B 22:46
PROVIDERS: ADMIT Hospitalist; ATTEND Hospitalist
DX: R31.0 Gross hematuria (principal); C64.9 Malignant neoplasm of unspecified kidney, except renal pelvis; I10 Essential (primary) hypertension; R33.9 Retention of urine, unspecified; N35.9 Urethral stricture, unspecified
CPT/HCPCS: 76937; 80048; 81001; 85025; J1170; J2405; J7030

== ENCOUNTER 2017-03-30 08:30 | Emergency (ER) | payer MEDICARE ==
[~2017-03-30] VITALS: Ht 172.7 cm; Wt 85.0 kg
[~2017-03-30 08:30] MED LIST changes: -HYDR-3516 PO; -LEVO750T3 PO; -[UNRECOGNIZED DRUG - SUPPLY]
[2017-03-30 08:32] VITALS: BP 150/99; PULSE 86; RESP 20; TEMP 98.4; O2SAT 99
[2017-03-30] MEDS ORDERED: HYDR-3533 PO (08:52)
--- NOTE | 2017-03-30 09:33 | PD ---
HPI Chief Complaint: Complaint Time Seen by Provider: 09:08 Travel History International Travel<30 days: No Contact w/Intl Traveler<30days: No Traveled to known affect area: No History of Present Illness HPI Mr. Lopez is a 66yo WM with a PMH of renal cell carcinoma presenting today with urethral obstruction from a blood clot. He states that he last urinated at 2 AM. He has the urge to urinate but is unable to because of an obvious blood clot in his urethra. He states that his urethra is already very small he has a very small stream of urine when he does urinate. His right kidney is actively bleeding and he has been having this problem for a while now. He was in the ED last week for this same complaint. He is scheduled for a nephrectomy on MondayApril 04. He sees Dr. Agrawal for urology. PFSH Past Medical History Blood Disorders: No Cancer: Yes (Kidney CA) Cardiovascular Problems: Yes Chemotherapy: No Diabetes: No Diminished Hearing: No Endocrine: No Gastrointestinal Disorders: No Genitourinary: Yes (renal cancer diagnosed 01/2017) Hypertension: Yes Immune Disorder: No Musculoskeletal: No Neurologic: No Psychiatric: No Reproductive: No Respiratory: No Immunizations Current: Yes Radiation Therapy: No Past Surgical History AICD: No Genitourinary Surgery: Yes (vasectomy with reversal) Insulin Pump: No Joint Replacement: No Pacemaker: No Tonsillectomy: Yes (childhood) Other Surgery: No Social History Alcohol Use: Yes (occasionally) Tobacco Use: No Substance Use: No Allergies-Medications (Allergen,Severity, Reaction): Coded Allergies: No Known Allergies (Verified , 03/30/17) Reported Meds & Prescriptions Reported Meds & Active Scripts Active Norvasc (Amlodipine Besylate) 5 Mg Tab 5 Mg PO DAILY Reported Lortab (Hydrocodone-Acetaminophen) 5-325 Mg Tab 1-2 Tab PO Q6H PRN Review of Systems General / Constitutional: No: Fever, Chills Genitourinary: Positive: Decreased Urinary Output, Flank Pain (right) Neurologic: No: Weakness, Dizziness Physical Exam Narrative GENERAL: Well-nourished, well-developed patient laying in bed in no acute distress. SKIN: Warm and dry. HEAD: Normocephalic. EYES: No scleral icterus. No injection or drainage. NECK: Supple, trachea midline. No JVD or lymphadenopathy. CARDIOVASCULAR: Regular rate and rhythm without murmurs, gallops, or rubs. RESPIRATORY: Breath sounds equal bilaterally. No accessory muscle use. GASTROINTESTINAL: Abdomen soft, nondistended. suprapubic tenderness : 1x1mm blood clot in urethral opening. right CVA tenderness EXTREMITIES: No cyanosis, or edema. NEUROLOGICAL: Awake, alert, and oriented x 3. Non-focal. Data Data Last Documented VS Vital Signs Date Time Temp Pulse Resp B/P (MAP) Pulse Ox O2 Delivery O2 Flow Rate FiO2 03/30/17 10:32 17 03/30/17 10:08 97.8 81 140/70 (93) 100 Room Air Orders Orders Complete Blood Count With Diff (03/30/17 09:19) Coag Profile (03/30/17 09:19) Bladder/Catheter Irrigation (03/30/17 09:19) Urinary Catheter Insert/Apply (03/30/17 09:19) Urinalysis - C+S If Indicated (03/30/17 09:19) Comprehensive Metabolic Panel (03/30/17 09:38) Lidocaine 5% Oint (Xylocaine 5% Oint) (03/30/17 10:00) Ondansetron Inj (Zofran Inj) (03/30/17 10:00) Hydromorphone Pf Inj (Dilaudid Pf Inj) (03/30/17 10:00) Urine Culture (03/30/17 11:20) Labs Laboratory Tests Test 03/30/17 09:17 03/30/17 09:45 03/30/17 11:20 White Blood Count 6.2 TH/MM3 Red Blood Count 4.11 MIL/MM3 Hemoglobin 12.7 GM/DL Hematocrit 38.1 % Mean Corpuscular Volume 92.8 FL Mean Corpuscular Hemoglobin 31.0 PG Mean Corpuscular Hemoglobin Concent 33.4 % Red Cell Distribution Width 12.9 % Platelet Count 342 TH/MM3 Mean Platelet Volume 8.2 FL Neutrophils (%) (Auto) 67.0 % Lymphocytes (%) (Auto) 22.0 % Monocytes (%) (Auto) 7.0 % Eosinophils (%) (Auto) 3.0 % Basophils (%) (Auto) 1.0 % Neutrophils # (Auto) 4.1 TH/MM3 Lymphocytes # (Auto) 1.4 TH/MM3 Monocytes # (Auto) 0.4 TH/MM3 Eosinophils # (Auto) 0.2 TH/MM3 Basophils # (Auto) 0.1 TH/MM3 CBC Comment DIFF FINAL Differential Comment Prothrombin Time 10.7 SEC Prothromb Time International Ratio 1.0 RATIO Activated Partial Thromboplast Time 27.2 SEC Blood Urea Nitrogen 17 MG/DL Creatinine 1.21 MG/DL Random Glucose 85 MG/DL Total Protein 7.2 GM/DL Albumin 3.9 GM/DL Calcium Level 10.7 MG/DL Alkaline Phosphatase 48 U/L Aspartate Amino Transf (AST/SGOT) 18 U/L Alanine Aminotransferase (ALT/SGPT) 33 U/L Total Bilirubin 0.4 MG/DL Sodium Level 142 MEQ/L Potassium Level 4.1 MEQ/L Chloride Level 109 MEQ/L Carbon Dioxide Level 25.2 MEQ/L Anion Gap 8 MEQ/L Estimat Glomerular Filtration Rate 60 ML/MIN Urine Color RED Urine Turbidity CLOUDY Urine pH 8.5 Urine Specific [place] 1.012 Urine Protein 100 mg/dL Urine Glucose (UA) NEG mg/dL Urine Ketones 10 mg/dL Urine Occult Blood LARGE Urine Nitrite NEG Urine Bilirubin NEG Urine Urobilinogen LESS THAN 2.0 MG/DL Urine Leukocyte Esterase NEG Urine RBC /hpf Urine WBC /hpf Microscopic Urinalysis Comment CATH-CULTURE IND MDM Medical Decision Making Medical Screen Exam Complete: Yes Emergency Medical Condition: Yes Differential Diagnosis urethra obstruction vs BPH vs neurogenic bladder Narrative Course 66 yo WM with a PMH of renal cell carcinoma presenting with urinary obstruction from a blood clot in his urethra. Physical exam shows an obvious blood clot obstructing his urethra. -CBC, coag profile -Lidocaine ointment for pain relief while inserting catheter -3 way catheter with bladder irrigation -UA Seen with and discussed with- Signed out to Dr. Pearl Diagnosis Primary Impression: urethral obstruction due to blood clot Liliya Nesbitt MD R1 Mar 30, 2017 09:33
[2017-03-30] MEDS ORDERED: ONDANSETRON HCL 4 MG/2 ML VIAL IV PUSH ONE (10:00)
[2017-03-30] MEDS ORDERED: LIDOCAINE HCL 5% OINT 37 GM TUBE TOPICAL ONE (10:00)
[2017-03-30] MEDS ORDERED: HYDROmorphone HCL PF 1 MG/ML VIAL IV PUSH ONE (10:00)
[2017-03-30 10:08] VITALS: BP 140/70; PULSE 81; RESP 17; TEMP 97.8; O2SAT 100
[2017-03-30 10:08] LABS: AUTOMATED NEUTROPHIL # 4.1 TH/MM3 (1.8-7.7); BASOPHIL # 0.1 TH/MM3 (0-0.2); EOSINOPHIL # 0.2 TH/MM3 (0-0.4); HEMATOCRIT 38.1 % (39.0-51.0); HEMO FLAGS DIFF FINAL; LYMPHOCYTE # 1.4 TH/MM3 (1.0-4.8); MEAN CELL VOLUME 92.8 FL (80.0-100.0); MEAN CORPUSCULAR HGB CONC 33.4 % (32.0-36.0); PLATELET COUNT 342 TH/MM3 (150-450); RED BLOOD COUNT 4.11 MIL/MM3 (4.50-5.90); RED CELL DISTRIBUTION WIDTH 12.9 % (11.6-17.2); WHITE BLOOD COUNT 6.2 TH/MM3 (4.0-11.0)
[2017-03-30 10:20] LABS: PROTHROMBIN TIME - PATIENT 10.7 SEC (9.8-11.6)
[2017-03-30 10:21] LABS: APTT (PATIENT) 27.2 SEC (24.3-30.1)
[2017-03-30 10:41] LABS: ALT (GPT) 33 U/L (12-78)
[2017-03-30 10:44] LABS: ALKALINE PHOSPHATASE 48 U/L (45-117); TOTAL BILIRUBIN ADULT 0.4 MG/DL (0.2-1.0)
[2017-03-30 10:56] LABS: ANION GAP 8 MEQ/L (5-15); AST (GOT) 18 U/L (15-37); BICARBONATE 25.2 MEQ/L (21.0-32.0); BLOOD UREA NITROGEN 17 MG/DL (7-18); CHLORIDE 109 MEQ/L (98-107); GLOMERULAR FILTRATION RATE 60 ML/MIN (>89); POTASSIUM 4.1 MEQ/L (3.5-5.1); SODIUM (NA) 142 MEQ/L (136-145)
[2017-03-30 11:59] LABS: BLOOD, URINE LARGE (NEG); COMMENT (UR) CATH-CULTURE IND; CULTURE IF INDICATED CATH CULTURE IND; GLUCOSE,URINE NEG (NEG); KETONE, URINE 10 mg/dL (NEG); NITRITE,URINE NEG (NEG); PH, URINE 8.5 (5.0-8.5)
[2017-03-30 12:04] LABS: URINE COLOR RED (YELLW/STRAW)
[2017-03-30] MEDS ORDERED: SODIUM CHLORID 0.9% 500 ML INJ 500 ML IV ONE (12:30)
[2017-03-30 12:38] VITALS: BP 124/68; PULSE 68; RESP 17; TEMP 97.8; O2SAT 98
[2017-03-30 14:42] VITALS: BP 120/65; PULSE 84; RESP 17; TEMP 97.9; O2SAT 99
[2017-03-30] MEDS ORDERED: BACT800T5 PO (15:48)
--- NOTE | 2017-03-30 15:54 | PD ---
Physical Exam Date Seen by Provider: Mar 30, 2017 Time Seen by Provider: 11:00 Narrative I am seeing this patient with Dr. Liliya Nesbitt, family practice resident. The patient presented with hematuria and inability to urinate. The patient was seen last week for the same thing and ended up having to have a catheter attempt was unsuccessful. He states at that time they were able to dislodge the clot. The patient denies any fevers, chills. He does state that he was on Levaquin for his urinary tract infection. Data Data Last Documented VS Vital Signs Date Time Temp Pulse Resp B/P (MAP) Pulse Ox O2 Delivery O2 Flow Rate FiO2 03/30/17 14:42 97.9 84 17 120/65 (83) 99 Room Air Orders Orders Complete Blood Count With Diff (03/30/17 09:19) Coag Profile (03/30/17 09:19) Bladder/Catheter Irrigation (03/30/17 09:19) Urinary Catheter Insert/Apply (03/30/17 09:19) Urinalysis - C+S If Indicated (03/30/17 09:19) Comprehensive Metabolic Panel (03/30/17 09:38) Lidocaine 5% Oint (Xylocaine 5% Oint) (03/30/17 10:00) Ondansetron Inj (Zofran Inj) (03/30/17 10:00) Hydromorphone Pf Inj (Dilaudid Pf Inj) (03/30/17 10:00) Urine Culture (03/30/17 11:20) Sodium Chlorid 0.9% 500 Ml Inj (Ns 500 M (03/30/17 12:30) Diet Regular Basic (03/30/17 Lunch) Labs Laboratory Tests Test 03/30/17 09:17 03/30/17 09:45 03/30/17 11:20 White Blood Count 6.2 TH/MM3 Red Blood Count 4.11 MIL/MM3 Hemoglobin 12.7 GM/DL Hematocrit 38.1 % Mean Corpuscular Volume 92.8 FL Mean Corpuscular Hemoglobin 31.0 PG Mean Corpuscular Hemoglobin Concent 33.4 % Red Cell Distribution Width 12.9 % Platelet Count 342 TH/MM3 Mean Platelet Volume 8.2 FL Neutrophils (%) (Auto) 67.0 % Lymphocytes (%) (Auto) 22.0 % Monocytes (%) (Auto) 7.0 % Eosinophils (%) (Auto) 3.0 % Basophils (%) (Auto) 1.0 % Neutrophils # (Auto) 4.1 TH/MM3 Lymphocytes # (Auto) 1.4 TH/MM3 Monocytes # (Auto) 0.4 TH/MM3 Eosinophils # (Auto) 0.2 TH/MM3 Basophils # (Auto) 0.1 TH/MM3 CBC Comment DIFF FINAL Differential Comment Prothrombin Time 10.7 SEC Prothromb Time International Ratio 1.0 RATIO Activated Partial Thromboplast Time 27.2 SEC Blood Urea Nitrogen 17 MG/DL Creatinine 1.21 MG/DL Random Glucose 85 MG/DL Total Protein 7.2 GM/DL Albumin 3.9 GM/DL Calcium Level 10.7 MG/DL Alkaline Phosphatase 48 U/L Aspartate Amino Transf (AST/SGOT) 18 U/L Alanine Aminotransferase (ALT/SGPT) 33 U/L Total Bilirubin 0.4 MG/DL Sodium Level 142 MEQ/L Potassium Level 4.1 MEQ/L Chloride Level 109 MEQ/L Carbon Dioxide Level 25.2 MEQ/L Anion Gap 8 MEQ/L Estimat Glomerular Filtration Rate 60 ML/MIN Urine Color RED Urine Turbidity CLOUDY Urine pH 8.5 Urine Specific [place] 1.012 Urine Protein 100 mg/dL Urine Glucose (UA) NEG mg/dL Urine Ketones 10 mg/dL Urine Occult Blood LARGE Urine Nitrite NEG Urine Bilirubin NEG Urine Urobilinogen LESS THAN 2.0 MG/DL Urine Leukocyte Esterase NEG Urine RBC /hpf Urine WBC /hpf Microscopic Urinalysis Comment CATH-CULTURE IND MDM Medical Record Reviewed: Yes Supervised Visit with SMITHA: No Differential Diagnosis Hematuria with urinary outlet obstruction versus persistent UTI versus worsening kidney function Narrative Course 56-year-old male history of renal cancer, who is scheduled for left sided nephrectomy next Monday, presents today with complaints of inability to urinate with a blood clot stuck in his urethra. The patient had same thing last week. He was able to have a dislodged. There is no difficulty at that time. The patient has a urethral stricture. We attempted several times to plastic catheter unsuccessful. Upon anesthetizing his urethra with viscous lidocaine, we were able to dislodge the clot and he was able to void an empty his bladder. He voided roughly 400 cc of rust colored urine. Post residual showed 70 cc of urine in his bladder. Case was discussed with Dr. Agrawal, patient's urologist who was comfortable having him being discharged as long as he was able to void. The patient did have persistent white blood cells in his urine. He'll be started on Bactrim DS 1 tab by mouth twice a day 10 days. Culture has been sent off for the urine. He was previously on Levaquin which causes swelling of his lower extremities. Return of he is unable to urinate. Diagnosis Primary Impression: urethral obstruction due to blood clot Additional Impressions: persistent Leukouria Bladder cancer Additional Instruction: Return if inability to urinate. Drink plenty of fluids. Med/Other Pt SpecificInfo: Prescription(s) given Scripts Sulfamethoxazole-Trimethoprim (Bactrim DS) 800-160 Mg Tab 1 TAB PO BID for Infection, #20 TAB 0 Refills Prov: Camilo Pearl MD 03/30/17 Disposition: 01 DISCHARGE HOME Condition: Stable Camilo Pearl MD Mar 30, 2017 15:54
[2017-03-30 16:37] VITALS: BP 124/85; TEMP 97.8
== END 2017-03-30 16:37 | disposition home or self-care (01) ==
LOC: NEPE 08:30
DX: C64.9 Malignant neoplasm of unspecified kidney, except renal pelvis (principal); N13.8 Other obstructive and reflux uropathy; R31.9 Hematuria, unspecified
CPT/HCPCS: 80053; 81001; 85025; 85610; 85730; 87086; 96361; 96374; 96375; 99284; J1170; J2405; J7040

== ENCOUNTER 2017-04-04 11:33 | Inpatient (IN) | payer MEDICARE ==
[~2017-04-04] VITALS: Ht 172.7 cm; Wt 83.6 kg
[~2017-04-04 11:33] MED LIST changes: +HYDR-3533 PO
[2017-04-04] MEDS ORDERED: ceFAZolin 2 GM PREMIX 50 ML IV SCH (12:45)
[2017-04-04] MEDS ORDERED: SODIUM CHLORID 0.9% 500 ML IV PRN (12:45)
[2017-04-04] MEDS ORDERED: CHLORHEXIDINE GLUCONATE 2 % 1 PACK (2 CLOTHS) TOPICAL PRN (12:45)
[2017-04-04] MEDS ORDERED: POVIDONE IODINE 5% (ANTISEPSIS KIT) 4 APPLICATIONS EACH NARE PRN (12:45)
[2017-04-04] MEDS ORDERED: LACTATED RINGER'S 1000 ML IV PRN (12:45)
[2017-04-04] MEDS ORDERED: METOPROLOL TARTRATE 25 MG TAB PO PRN (12:45)
[2017-04-04] MEDS ORDERED: INSULIN HUMAN REGULAR 1,000 UNITS/10 ML VIAL SQ PRN (12:45)
[2017-04-04 13:27] LABS: PROTHROMBIN TIME - PATIENT 10.9 SEC (9.8-11.6)
[2017-04-04] MEDS ORDERED: ceFAZolin INJ 1,000 MG VIAL IV PUSH ONE (16:28)
[2017-04-04] MEDS ORDERED: ROCURONIUM INJ 50 MG/5 ML SYRINGE IV PUSH ONE (16:55)
[2017-04-04] MEDS ORDERED: ONDANSETRON HCL 4 MG/2 ML VIAL IV PUSH PRN (19:30)
[2017-04-04] MEDS ORDERED: MORPHINE SULFATE 4 MG/ML INJ IV PUSH PRN (19:30)
[2017-04-04] MEDS ORDERED: *morphine SULFATE 8 MG/ML PERIprocedure ONLY ONE (19:53)
[2017-04-04] MEDS: PANTOPRAZOLE SODIUM 40 MG VIAL IV PUSH SCH (20:00)
[2017-04-04] MEDS: SODIUM CHLOR 0.9% 1000 ML INJ 1,000 ML IV SCH (20:00)
[2017-04-04] MEDS: ACETAMINOPHEN 1000 MG/100 ML 100 ML IV SCH (20:00)
[2017-04-04] MEDS ORDERED: DO NOT ADM ANY ANTICOAGULANT DRUGS PRN (20:15)
[2017-04-04 20:24] LABS: AUTOMATED NEUTROPHIL # 13.1 TH/MM3 (1.8-7.7); BASOPHIL % 0.3 % (0.0-2.0); EOSINOPHIL % 0.3 % (0.0-4.0); HEMATOCRIT 35.9 % (39.0-51.0); HEMO FLAGS DIFF FINAL; LYMPH % 6.4 % (9.0-44.0); LYMPHOCYTE # 0.9 TH/MM3 (1.0-4.8); MEAN CELL VOLUME 93.1 FL (80.0-100.0); MEAN CORPUSCULAR HEMOGLOBIN 30.9 PG (27.0-34.0); MEAN CORPUSCULAR HGB CONC 33.2 % (32.0-36.0); MONO % 4.5 % (0.0-8.0); NEUT % 88.5 % (16.0-70.0); PLATELET COUNT 367 TH/MM3 (150-450); RED BLOOD COUNT 3.86 MIL/MM3 (4.50-5.90); RED CELL DISTRIBUTION WIDTH 13.3 % (11.6-17.2); WHITE BLOOD COUNT 14.8 TH/MM3 (4.0-11.0)
[2017-04-04 20:38] LABS: BICARBONATE 23.4 MEQ/L (21.0-32.0); POTASSIUM 4.3 MEQ/L (3.5-5.1)
[2017-04-04 22:00] VITALS: BP 138/70; PULSE 95; RESP 20; TEMP 96.9; O2SAT 98
[2017-04-04] MEDS: DOCUSATE SODIUM 100 MG CAP PO SCH (22:48)
[2017-04-05] VITALS (7 sets, daily range): BP systolic 123–168; BP diastolic 73–90; PULSE 83–95; RESP 17–22; TEMP 96.2–98.7; O2SAT 91–96
[2017-04-05] MEDS: ACETAMINOPHEN 1000 MG/100 ML 100 ML IV SCH ×4 (03:41→19:37)
--- NOTE | 2017-04-05 04:43 | HHI.PR ---
Subjective Patient symptoms today c/p pain at RLQ incision, 12/03. Denies nausea, CP,SOB. Has not been OOB. Denies flatus. Objective Vital Signs Vital Signs Date Time Temp Pulse Resp B/P (MAP) Pulse Ox O2 Delivery O2 Flow Rate FiO2 04/05/17 00:00 96.2 89 22 148/76 (100) 94 04/04/17 22:00 96.9 95 20 138/70 (92) 98 04/04/17 21:00 84 14 139/76 (97) 100 Nasal Cannula 2 04/04/17 20:45 85 14 140/75 (96) 100 Nasal Cannula 2 04/04/17 20:30 86 16 145/80 (101) 100 Nasal Cannula 2 04/04/17 20:15 83 16 142/77 (98) 100 Nasal Cannula 2 04/04/17 20:00 81 14 134/77 (96) 100 Nasal Cannula 2 04/04/17 19:45 98.1 88 16 170/80 (110) 100 Nasal Cannula 4 04/04/17 12:53 97.7 74 16 145/84 (104) 99 Intake & Output 04/05/17 04/05/17 07:00 19:00 Intake Total 3300 ml Output Total 810 ml Balance 2490 ml Other 3300 ml Output Urine Total 610 ml Estimated Blood Loss 200 ml Result Diagram: 04/04/17195004/04/171950 Objective Remarks NAD. A/O x 3 RRR non-labored respirations abd soft, appropriately tender, ND. dressing dry. Benites clear yellow Ext NT. No edema. Medications and IVs Current Medications Medications (Trade) Dose Ordered Sig/Leigh Route Start Time Stop Time Status Last Admin Acetaminophen 100 ml @ 400 mls/hr Q6H IV 04/04/17 20:00 04/05/17 03:41 (Colace) 100 mg BID PO 04/04/17 21:00 04/04/17 22:48 Cefazolin Sodium 1000 mg/Sodium Chloride 100 ml @ 200 mls/hr Q8H IV 04/05/17 00:00 04/05/17 08:29 04/04/17 22:38 (Roxicodone) 10 mg Q4H PRN PO 04/04/17 19:30 04/05/17 03:00 (Morphine Inj) 4 mg Q3H PRN IV PUSH 04/04/17 19:30 (Zofran Inj) 4 mg Q6HR PRN IV PUSH 04/04/17 19:30 (Protonix Inj) 40 mg Q24H IV PUSH 04/04/17 20:00 04/04/17 20:00 Sodium Chloride 1,000 ml @ 125 mls/hr Q8H IV 04/04/17 19:30 04/04/17 20:00 (Norvasc) 5 mg DAILY PO 04/05/17 09:00 Miscellaneous Information ALL NURSING DEPARTME... UNSCH PRN .XX 04/04/17 20:15 04/05/17 20:14 Assessment and Plan Assessment and Plan POD#1 s/p Robotic Right Radical Nephrectomy, Meatoplasty -Adjust pain medication -F/U labs this morning -Start Clears -OOB today -GI/DVT prophylaxis -Will be out of town rest of week. Jose Fox MD Apr 05, 2017 04:43
--- NOTE | 2017-04-05 05:35 | MP ---
cc: JM KUMAR MD DATE OF OPERATION 04/04/2017 PREOPERATIVE DIAGNOSES 1. Right renal mass. 2. Gross hematuria. 3. 11 cm right simple renal cyst. 4. Meatal stenosis. POSTOPERATIVE DIAGNOSES 1. Right renal mass. 2. Gross hematuria. 3. 11 cm right simple renal cyst. 4. Meatal stenosis. PROCEDURE PERFORMED 1. Meatoplasty. 2. Aspiration of right renal cyst. 3. Right robotic radical nephrectomy. SURGEON MD Nghia ANESTHESIA General. COMPLICATIONS None. PREOPERATIVE ANTIBIOTICS Ancef 2 grams IV DRAINS 16-Faroese Benites catheter to gravity drainage. SPECIMENS Right kidney for permanent. BLOOD LOSS 200 mL. DISPOSITION Stable to recovery. INDICATIONS The patient is a 66-hour male who initially presented to [facility] with gross hematuria. During a hematuria workup the patient was found to have a 6-cm lower pole right renal mass suspicious for malignancy. It also appeared that it had been invading possibly into his right renal pelvis. He was also found to have a large 11-cm anterior right renal cyst. He underwent a cystoscopy, left retrograde pyelogram as an outpatient to evaluate his right renal pelvis and it turned out negative. He has been having persistent gross hematuria has gone to the ER multiple times in clot retention due to his significant meatal stenosis. In discussion with the patient, the patient did elect to allow to have a meatoplasty performed at the same time as removing his kidney today. After the risks, benefits and alternatives were explained, patient gave permission to proceed. DETAILS OF PROCEDURE The patient was properly identified, brought back to the operating room, was laid supine on the operating table. A proper time-out was performed under the direction of Anesthesiology. The patient was then induced under general anesthetic. Preoperative antibiotics in the form of Ancef 2 grams IV were given within one hour of the start of the procedure. His penis was then prepped and draped with Betadine. A small straight mosquito hemostat was then clamped down on the tissue at his urethral meatus. This was then divided with tenotomy scissors. 5-0 Vicryl was then used on each side to stitch open his urethral meatus. At this time it was widely patent. A 16-Faroese Benites catheter was easily placed. He was then placed in the left lateral decubitus position with the right side up. All pressure points were padded. A stab incision was made superior and lateral to the umbilicus with an 11-blade scalpel. The Veress needle was then used to gain insufflation to the abdomen. Under direct visualization, I placed a A 12-mm long camera port. On initial inspection of the abdomen, a large anterior, 11-cm renal cyst was easily identified and seen to be distorting his liver and gallbladder. There were also some interior abdominal adhesions. The five other remaining ports were placed under direct visualization including two robotic optical assistant ports that were triangulated off the camera port, a 5-mm liver retractor port just below the xiphoid process in the midline and then two 12-mm optical assistant ports one superior and inferior to the umbilicus along the midline. Again, they were all placed under direct visualization. Prior to docking the robot, I then inserted a laparoscopic needle into the cyst and then drained the serous-colored fluid, approximately 200 cc from the cyst. At this time the laparoscopic needle was removed and the robot was then brought into position. I began by reflecting the colon medially by taking down the white line of Toldt. I also had to peel the colon off of the cyst. There was a considerable amount of bleeding due to the inflammatory nature of the cyst. Once I reflected the colon medially, this exposed the retroperitoneum. The duodenum was adhered to the renal cyst itself as well. I carefully peeled the duodenum off of the renal cyst. Under direct visualization, the locking grasper was then inserted through the 5-port to retract the liver anteriorly. I tried to identify the plane between the IVC and the kidney itself to retract the kidney anteriorly; however, the cyst continued to distort this area. There was still a significant amount of fluid left in the cyst, therefore I made a small incision in the inferior and posterior portion of the cyst and using a suction micro photographer removed the cyst until it completely flattened the cyst. This helped to delineate the planes. I then marched up the IVC, leaving the gonadal intact until I came across the hilum. However, the collapsed cyst was covering the hilar vessels. Using a Greg needle, I then brought it through the anterior abdominal wall and retracted the cyst toward the anterior abdominal wall which helped expose the hilar area. The hilum was carefully dissected. The large renal artery was initially seen. This was taken with endovascular JENNA stapler. A small artery was seen posterior; this was taken as well after dissecting out circumferentially. The large renal vein was next taken and at this time the whole hilum was freed. The rest of the kidney was mobilized and freed including from the liver. At this time the ureter was lastly divided with a Hem-o-min clip proximally and distally and then divided in between. This was placed in an EndoCatch bag for later removal. The hilum was carefully inspected. There was no evidence of any bleeding. 3 grams of Rajni was then placed. The liver remained intact. The liver retractor was then removed. The insufflation was brought down to 7 mmHg and there was no evidence of any bleeding. At this time the bag was then transferred to the right lower quadrant robotic port incision. It was extended and the kidney was extracted through there. During extraction the epigastrics were divided. These were controlled with the Hem-o-min clips. The peritoneum was closed with 3-0 Vicryl, followed by 1-0 PDS with the fascia. A second look was performed. The incision was free of any bowel from inside. The liver bed appeared to be dry. At this time all ports were removed under direct visualization. This concluded the procedure. The patient was extubated and sent to Recovery in stable condition, will be transferred to the floor for routine postoperative care. MD KARLY Mae/ELIZA /8:18 PM /5:00 AM
[2017-04-05] MEDS: SODIUM CHLOR 0.9% 1000 ML INJ 1,000 ML IV SCH ×3 (06:50→23:30)
[2017-04-05] MEDS: amLODIPine BESYLATE 5 MG TAB PO SCH (08:10)
[2017-04-05] MEDS: DOCUSATE SODIUM 100 MG CAP PO SCH ×2 (08:10→19:38)
[2017-04-05 08:52] LABS: HEMATOCRIT 36.9 % (39.0-51.0); MEAN CELL VOLUME 93.3 FL (80.0-100.0); MEAN CORPUSCULAR HEMOGLOBIN 31.1 PG (27.0-34.0); MEAN CORPUSCULAR HGB CONC 33.3 % (32.0-36.0); PLATELET COUNT 346 TH/MM3 (150-450); RED BLOOD COUNT 3.96 MIL/MM3 (4.50-5.90); RED CELL DISTRIBUTION WIDTH 13.1 % (11.6-17.2); REVIEW FLAG FINAL
[2017-04-05 09:18] LABS: BICARBONATE 21.8 MEQ/L (21.0-32.0); POTASSIUM 4.3 MEQ/L (3.5-5.1)
[2017-04-05] MEDS: PANTOPRAZOLE SODIUM 40 MG VIAL IV PUSH SCH (19:38)
[2017-04-06] VITALS: BP 151/77; PULSE 74; RESP 18; TEMP 97; O2SAT 93
[2017-04-06] MEDS: SODIUM CHLOR 0.9% 1000 ML INJ 1,000 ML IV SCH ×3 (02:40→11:35)
[2017-04-06] MEDS: ACETAMINOPHEN 1000 MG/100 ML 100 ML IV SCH ×4 (02:40→19:50)
[2017-04-06 08:00] VITALS: BP 157/87; PULSE 78; RESP 28; TEMP 98.1; O2SAT 99
[2017-04-06] MEDS: DOCUSATE SODIUM 100 MG CAP PO SCH ×2 (09:31→19:50)
[2017-04-06] MEDS: amLODIPine BESYLATE 5 MG TAB PO SCH (09:31)
[2017-04-06 12:00] VITALS: BP 156/90; PULSE 96; RESP 18; TEMP 96.5; O2SAT 96
[2017-04-06 16:00] VITALS: BP 138/78; PULSE 81; RESP 18; TEMP 97.7; O2SAT 92
[2017-04-06 17:37] VITALS: O2SAT 92
--- NOTE | 2017-04-06 18:26 | HHI.PR ---
Subjective Patient symptoms today POD#2 Robotic right radical nephrectomy Doing well, pain well controlled. No N/V. No BM Objective Vital Signs Vital Signs Date Time Temp Pulse Resp B/P (MAP) Pulse Ox O2 Delivery O2 Flow Rate FiO2 04/06/17 17:37 92 04/06/17 16:00 97.7 81 18 138/78 (98) 92 04/06/17 12:00 96.5 96 18 156/90 (112) 96 04/06/17 08:00 98.1 78 28 157/87 (110) 99 04/06/17 00:00 97.0 74 18 151/77 (101) 93 04/05/17 20:00 96.6 89 18 137/81 (99) 96 Intake & Output 04/06/17 04/06/17 07:00 19:00 Intake Total 1343 ml 908 ml Output Total 1750 ml Balance -407 ml 908 ml IV Total 1343 ml 908 ml Output Urine Total 1750 ml Result Diagram: 04/05/1770304/05/17703 Objective Remarks NAD. A/O x 3 non-labored respirations abd soft, appropriately tender, ND. Incision c/d/i, no erythema, no drainage Benites clear yellow Ext NT. No edema. Medications and IVs Current Medications Medications (Trade) Dose Ordered Sig/Leigh Route Start Time Stop Time Status Last Admin Acetaminophen 100 ml @ 400 mls/hr Q6H IV 04/04/17 20:00 04/06/17 14:51 (Colace) 100 mg BID PO 04/04/17 21:00 04/06/17 09:31 (Roxicodone) 10 mg Q4H PRN PO 04/04/17 19:30 04/06/17 14:51 (Morphine Inj) 4 mg Q3H PRN IV PUSH 04/04/17 19:30 (Zofran Inj) 4 mg Q6HR PRN IV PUSH 04/04/17 19:30 04/05/17 08:23 (Protonix Inj) 40 mg Q24H IV PUSH 04/04/17 20:00 04/05/17 19:38 Sodium Chloride 1,000 ml @ 125 mls/hr Q8H IV 04/04/17 19:30 04/06/17 11:35 (Norvasc) 5 mg DAILY PO 04/05/17 09:00 10/12/17 09:31 Assessment and Plan Assessment and Plan POD#2 s/p Robotic Right Radical Nephrectomy, Meatoplasty -Pain well controlled -WBC and Cr normal -Start regular diet -Ambulate, GI/DVT prophylaxis -Benites catheter to remain in place and be discharged with catheter -Potential discharge tomorrow Bran Rowe MD Apr 06, 2017 18:26
[2017-04-06] MEDS: PANTOPRAZOLE SODIUM 40 MG VIAL IV PUSH SCH (19:47)
[2017-04-06 20:00] VITALS: BP 176/91; PULSE 98; RESP 18; TEMP 96.9; O2SAT 94
[2017-04-07 00:12] VITALS: BP 139/80; PULSE 80; RESP 18; TEMP 98.1; O2SAT 93
[2017-04-07] MEDS: ACETAMINOPHEN 1000 MG/100 ML 100 ML IV SCH ×3 (02:12→14:15)
[2017-04-07] MEDS: SODIUM CHLOR 0.9% 1000 ML INJ 1,000 ML IV SCH ×2 (04:57→11:30)
[2017-04-07 08:00] VITALS: BP 162/88; PULSE 83; RESP 16; TEMP 97.5; O2SAT 94
[2017-04-07 08:32] VITALS: O2SAT 96
[2017-04-07] MEDS: DOCUSATE SODIUM 100 MG CAP PO SCH (08:54)
[2017-04-07] MEDS: amLODIPine BESYLATE 5 MG TAB PO SCH (08:55)
[2017-04-07 12:00] VITALS: BP 151/77; PULSE 83; RESP 16; TEMP 97; O2SAT 97
--- NOTE | 2017-04-07 12:31 | HHI.PR ---
Subjective Patient symptoms today POD#3 Right robotic nephrectomy Pain well controlled, some pain overnight. No N/V. Tolerating regular diet. No BM Objective Vital Signs Vital Signs Date Time Temp Pulse Resp B/P (MAP) Pulse Ox O2 Delivery O2 Flow Rate FiO2 04/07/17 12:00 97.0 83 16 151/77 (101) 97 04/07/17 08:00 97.5 83 16 162/88 (112) 94 04/07/17 00:12 98.1 80 18 139/80 (99) 93 04/06/17 20:00 96.9 98 18 176/91 (119) 94 04/06/17 17:37 92 04/06/17 16:00 97.7 81 18 138/78 (98) 92 Intake & Output 04/07/17 04/07/17 07:00 19:00 Intake Total 1764 ml 100 ml Output Total 2200 ml Balance -436 ml 100 ml IV Total 1764 ml 100 ml Output Urine Total 2200 ml Result Diagram: 04/05/1770304/05/17 0704 Objective Remarks NAD A/O x 3 non-labored respirations abd soft, appropriately tender, ND. Incision c/d/i, no erythema, no drainage Benites clear yellow Ext NT. Mild bilateral LE edema. Medications and IVs Current Medications Medications (Trade) Dose Ordered Sig/Leigh Route Start Time Stop Time Status Last Admin Acetaminophen 100 ml @ 400 mls/hr Q6H IV 04/04/17 20:00 04/07/17 09:01 (Colace) 100 mg BID PO 04/04/17 21:00 04/07/17 08:54 (Roxicodone) 10 mg Q4H PRN PO 04/04/17 19:30 04/07/17 08:27 (Morphine Inj) 4 mg Q3H PRN IV PUSH 04/04/17 19:30 04/06/17 19:58 (Zofran Inj) 4 mg Q6HR PRN IV PUSH 04/04/17 19:30 04/05/17 08:23 Sodium Chloride 1,000 ml @ 125 mls/hr Q8H IV 04/04/17 19:30 04/07/17 04:57 (Norvasc) 5 mg DAILY PO 04/05/17 09:00 04/07/17 08:55 (Protonix) 40 mg Q24H PO 04/07/17 20:00 Assessment and Plan Assessment and Plan POD#3 s/p Robotic Right Radical Nephrectomy, Meatoplasty -Pain well controlled, continue PO pain meds -Regular diet -Ambulate, GI/DVT prophylaxis -Benites catheter to remain in place and be discharged with catheter -Potential discharge today or tomorrow morning with Urology follow-up next week Bran Rowe MD Apr 07, 2017 12:31
[2017-04-07] MEDS ORDERED: HYDR-3533 PO (12:35)
[2017-04-07] MEDS ORDERED: COLA100C PO (12:35)
--- NOTE | 2017-04-07 12:38 | HHI.DS ---
Discharge Summary Admission Date Apr 04, 2017 at 11:33 Discharge Date: Apr 07, 2017 Admitting Diagnosis Renal mass (1) Renal mass Diagnosis: Principal ICD Codes: N28.89 - Other specified disorders of kidney and ureter Status: Acute CBC/BMP: 04/05/17 0704 04/05/17 0704 Significant Findings Laboratory Tests Test 04/04/17 12:50 04/04/17 19:51 04/05/17 07:04 White Blood Count 14.8 TH/MM3 (4.0-11.0) Red Blood Count 3.86 MIL/MM3 (4.50-5.90) 3.96 MIL/MM3 (4.50-5.90) Hemoglobin 11.9 GM/DL (13.0-17.0) 12.3 GM/DL (13.0-17.0) Hematocrit 35.9 % (39.0-51.0) 36.9 % (39.0-51.0) Neutrophils (%) (Auto) 88.5 % (16.0-70.0) Lymphocytes (%) (Auto) 6.4 % (9.0-44.0) Neutrophils # (Auto) 13.1 TH/MM3 (1.8-7.7) Lymphocytes # (Auto) 0.9 TH/MM3 (1.0-4.8) Random Glucose 146 MG/DL (74-106) 108 MG/DL (74-106) Chloride Level 108 MEQ/L (98-107) Estimat Glomerular Filtration Rate 61 ML/MIN (>89) 67 ML/MIN (>89) Hospital Course Patient underwent Right robotic nephrectomy and meatoplasty on 04/05/17. He did well postoperatively, tolerated regular diet, pain controlled, and ambulating well. He was discharged on POD#3 in good condition with zazueta catheter in place. Follow-up in Urology in 1-2 weeks Pt Condition on Discharge: Good Discharge Disposition: Discharge Home Discharge Instructions DIET: Follow Instructions for: As Tolerated, No Restrictions Activities you can perform: Shower Only-No Bath New Medications: Docusate Sodium (Colace) 100 Mg Capsule 100 MG PO BID for Constipation, #60 CAP Continued Medications: Amlodipine (Norvasc) 5 Mg Tab 5 MG PO DAILY for Blood Pressure Management, #30 TAB 0 Refills Hydrocodone-Acetaminophen (Lortab) 5-325 Mg Tab 1-2 TAB PO Q6H PRN for PAIN for 10 Days, #60 TAB 0 Refills (This prescription has been renewed) Bran Rowe MD Apr 07, 2017 12:38
[2017-04-07] MEDS ORDERED: PANTOPRAZOLE SOD 40 MG DELAYED RELEASE TAB PO SCH (20:00)
== END 2017-04-07 16:40 | disposition home or self-care (01) | DRG 661 ==
LOC: HSDI 11:33 → N07A 21:40
PROVIDERS: ADMIT Urology; ATTEND Urology
PROC: 0TT64ZZ Resection of Right Ureter, Percutaneous Endoscopic Approach (ICD-10-PCS; 2017-04-04)
PROC: 0TN Urinary System, Release (ICD-10-PCS; 2017-04-04)
PROC: 0T9 Urinary System, Drainage (ICD-10-PCS; 2017-04-04)
PROC: 8E0W4CZ Robotic Assisted Procedure of Trunk Region, Percutaneous Endoscopic Approach (ICD-10-PCS; 2017-04-04)
PROC: 0TT04ZZ Resection of Right Kidney, Percutaneous Endoscopic Approach (ICD-10-PCS; principal; 2017-04-04 15:48)
DX: N28.89 Other specified disorders of kidney and ureter (principal); I10 Essential (primary) hypertension; N28.1 Cyst of kidney, acquired; R31.0 Gross hematuria; N35.9 Urethral stricture, unspecified; N40.0 Benign prostatic hyperplasia without lower urinary tract symptoms
CPT/HCPCS: 80048; 85025; 85027; 85610; 86850; 86900; 86901; 86920; 88307; 94150; C9113; J0131; J0690; J2270; J2405; J7030

== ENCOUNTER 2017-10-11 08:54 | Day surgery (SDC) | payer OTHER ==
[~2017-10-11] VITALS: Ht 172.7 cm; Wt 84.1 kg
[~2017-10-11 08:54] MED LIST changes: +COLA100C5 PO
[2017-10-11] MEDS ORDERED: fentaNYL CITRATE 250 MCG/5 ML AMP ONE (11:17)
[2017-10-11] MEDS ORDERED: MIDAZOLAM HCL 2 MG/2 ML VIAL ONE (11:17)
[2017-10-11] MEDS ORDERED: THROMBIN (TOPICAL) 5,000 UNIT VIAL ONE (11:31)
[2017-10-11 11:55] VITALS: BP 127/66; PULSE 73; RESP 20; TEMP 97.8; O2SAT 94
[2017-10-11 12:10] VITALS: BP 113/55; PULSE 65; RESP 20; O2SAT 94
[2017-10-11 12:40] VITALS: BP 106/54; PULSE 77; RESP 20; O2SAT 97
[2017-10-11 13:10] VITALS: BP 101/54; PULSE 65; RESP 18; O2SAT 96
[2017-10-11 13:40] VITALS: BP 132/69; PULSE 78; RESP 18; O2SAT 93
--- NOTE | 2017-10-11 14:01 | RADRPT ---
EXAM DATE/TIME: 10/11/2017 13:26 [facility] COMPARISON: No previous studies available for comparison. INDICATIONS : Chest pain, post biopsy. RADIATION DOSE: 16.98 CTDIvol (mGy) ; Combined studies - Thorax/Abdomen/Pelvis MEDICAL HISTORY : Renal cell carcinoma. Hypertension. SURGICAL HISTORY : Nephrectomy, right. ENCOUNTER: Initial ACUITY: 1 day PAIN SCALE: 5/10 LOCATION: chest TECHNIQUE: Volumetric scanning of the chest was performed. Using automated exposure control and adjustment of t he mA and/or kV according to patient size, radiation dose was kept as low as reasonably achievable to obtain optimal diagnostic quality images. DICOM format image data is available electronically for r eview and comparison. Follow-up recommendations for detected pulmonary nodules are based at a minimum on nodule size and pa tient risk factors according to Fleischner Society Guidelines. FINDINGS: LUNGS: There is no consolidation or pneumothorax. No concerning pulmonary nodule is visualized. PLEURAE: There is no pleural thickening or pleural effusion. MEDIASTINUM: The heart and great vessels demonstrate no acute abnormality. There is no mediastinal or hilar lymph adenopathy. AXILLAE: Within normal limits. No lymphadenopathy. MUSCULOSKELETAL: Within normal limits for patient age. . CONCLUSION: Negative chest. LAD calcifications Bong Herrera MD FACR on October 11, 2017 at 13:58 Board Certified Radiologist. This report was verified electronically.
--- NOTE | 2017-10-11 14:03 | RADRPT ---
EXAM DATE/TIME: 10/11/2017 13:26 [facility] COMPARISON: No previous studies available for comparison. INDICATIONS : Abdominal pain, post biopsy. ORAL CONTRAST: No oral contrast ingested. RADIATION DOSE: 16.32 CTDIvol (mGy) MEDICAL HISTORY : Renal cell carcinoma. Hypertension. SURGICAL HISTORY : Nephrectomy, right. ENCOUNTER: Initial ACUITY: 1 day PAIN SCALE: 4/10 LOCATION: Right abdomen TECHNIQUE: Volumetric scanning of the abdomen was performed. Using automated exposure control and adjustment of the mA and/or kV according to patient size, radiation dose was kept as low as reasonably achievable to obtain optimal diagnostic quality images. DICOM format image data is available electronically for review and comparison. FINDINGS: Lung base is are clear. Again seen are the lesions in the liver stable post biopsy. Abnormal conten ts otherwise unremarkable. There is no bony metastatic disease. CONCLUSION: Stable without hemorrhage Bong Herrera MD FACR on October 11, 2017 at 13:59 Board Certified Radiologist. This report was verified electronically.
[2017-10-11 14:40] VITALS: BP 137/76; PULSE 71; RESP 16; O2SAT 93
--- NOTE | 2017-10-13 08:51 | RADRPT ---
EXAM DATE/TIME: 10/11/2017 11:27 [facility] COMPARISON: No previous studies available for comparison. INDICATIONS : Liver mass. SEDATION TIME: 30 minutes BIOPSY SITE: Right MEDICATION(S): 1.) 2 mg midazolam (Versed) IV 2.) 150 mcg fentanyl (Sublimaze) IV DEVICE(S): 1.) 20 gauge Temno core biopsy needle MEDICAL HISTORY : Renal cell carcinoma. Hypertension. SURGICAL HISTORY : Nephrectomy, right. ENCOUNTER: Initial ACUITY: 1 day PAIN SCORE: 0/10 LOCATION: Right A total of two core specimen(s) were obtained and sent to the laboratory for pathologic evaluation. PROCEDURE: 1. CT guided liver biopsy. 2. Conscious sedation with continuous EKG and oximetry monitoring. 3. EKG and oximetry remained stable throughout the procedure. Prior to the procedure informed consent was obtained. Any appropriate prior imaging studies were rev iewed. Using automated exposure control and adjustment of the mA and/or kV according to patient size, radiat ion dose was kept as low as reasonably achievable to obtain optimal diagnostic quality images. DICOM format image data is available electronically for review and comparison. The site was prepped in a sterile fashion. Full sterile technique was used, including cap, mask, denny rile gloves and gown and a large sterile sheet. Hand hygiene and 2% chlorhexidine and/or betadine/al cohol prep was utilized per protocol for cutaneous antisepsis. The skin and subcutaneous tissues wer e infiltrated with local anesthetic solution. \Under CT guidance an 18 gauge blunt down to the lesion. 3 cores were obtained. Gelfoam and thrombi n was used for hemostasis. Follow-up CT scan reveals no hemorrhage. The patient tolerated the procedure well and there were no complications. The patient was returned to the Radiology Outpatient Unit in stable condition. CONCLUSION: Uncomplicated CT guided biopsy of presumed metastatic disease in the liver. Bong Herrera MD FACR on October 13, 2017 at 8:47 Board Certified Radiologist. This report was verified electronically.
== END 2017-10-11 16:00 | disposition home or self-care (01) ==
LOC: HRAD 08:54 → HRIP 08:57 → HRAD 16:00
PROVIDERS: ATTEND Internal Medicine
DX: R16.0 Hepatomegaly, not elsewhere classified (principal); C64.1 Malignant neoplasm of right kidney, except renal pelvis; I10 Essential (primary) hypertension
CPT/HCPCS: 47000; 71250; 74150; 77012; 88307; 88333; 88341; 88342; 99152; 99153; J2250; J3010

== ENCOUNTER 2017-10-24 06:19 | Day surgery (SDC) | payer OTHER ==
[~2017-10-24] VITALS: Ht 172.7 cm; Wt 86.4 kg
[~2017-10-24 06:19] MED LIST changes: -HYDR-3533 PO
[2017-10-24 06:58] VITALS: BP 137/74; PULSE 68; RESP 20; TEMP 97.5; O2SAT 98
[2017-10-24] MEDS ORDERED: POVIDONE IODINE 5% (ANTISEPSIS KIT) 4 APPLICATIONS EACH NARE SCH (07:15)
[2017-10-24] MEDS ORDERED: VANCOMYCIN 1000 MG/NS 250 ML - implanted port/tunneled catheter IV SCH ×2 (07:15)
[2017-10-24] MEDS ORDERED: CHLORHEXIDINE GLUCONATE 2 % 1 PACK (2 CLOTHS) TOPICAL SCH (07:15)
[2017-10-24] MEDS ORDERED: ceFAZolin 2 GM PREMIX 50 ML - implanted port/tunneled catheter insertion IV SCH (07:15)
[2017-10-24 07:44] LABS: AUTOMATED NEUTROPHIL # 3.7 TH/MM3 (1.8-7.7); BASOPHIL # 0.1 TH/MM3 (0-0.2); BASOPHIL % 1.1 % (0.0-2.0); EOSINOPHIL # 0.5 TH/MM3 (0-0.4); EOSINOPHIL % 8.1 % (0.0-4.0); HEMATOCRIT 39.7 % (39.0-51.0); HEMOGLOBIN 13.4 GM/DL (13.0-17.0); LYMPH % 25.8 % (9.0-44.0); LYMPHOCYTE # 1.7 TH/MM3 (1.0-4.8); MEAN CELL VOLUME 93.7 FL (80.0-100.0); MEAN CORPUSCULAR HEMOGLOBIN 31.6 PG (27.0-34.0); MEAN CORPUSCULAR HGB CONC 33.8 % (32.0-36.0); MEAN PLATELET VOLUME 8.6 FL (7.0-11.0); MONO % 8.7 % (0.0-8.0); MONOCYTE # 0.6 TH/MM3 (0-0.9); NEUT % 56.3 % (16.0-70.0); PLATELET COUNT 324 TH/MM3 (150-450); RED BLOOD COUNT 4.24 MIL/MM3 (4.50-5.90); RED CELL DISTRIBUTION WIDTH 13.2 % (11.6-17.2); WHITE BLOOD COUNT 6.6 TH/MM3 (4.0-11.0)
[2017-10-24] MEDS ORDERED: MIDAZOLAM HCL 2 MG/2 ML VIAL ONE (08:55)
[2017-10-24] MEDS ORDERED: LIDOCAINE 1%/EPINEPHrine 1:100,000 SOLN 30 ML VIAL ONE (09:23)
--- NOTE | 2017-10-24 09:57 | PD.RAD ---
Post Procedure Progress Note Pre Procedure Diagnosis: (1) Renal mass Post Procedure Diagnosis: (1) Renal mass Procedure Date: October 24, 2017 Supervising Radiologist: Rosales Kauffman Proceduralist/Assist: RT Lora(R), Other Anesthesia: Conscious Sedation Plan of Activity Patient to Unit: ROPU Patient Condition: Good See PACS Report for procedural detail/treatment Rosales Kauffman MD October 24, 2017 09:57
[2017-10-24 10:10] VITALS: BP 148/68; PULSE 69; RESP 18; TEMP 97.6; O2SAT 95
[2017-10-24 10:25] VITALS: BP 148/60; PULSE 75; RESP 18; O2SAT 94
[2017-10-24 10:55] VITALS: BP 110/41; PULSE 67; RESP 18; O2SAT 95
[2017-10-24 11:25] VITALS: BP 135/62; PULSE 67; RESP 18; O2SAT 95
--- NOTE | 2017-10-24 11:55 | RADRPT ---
EXAM DATE/TIME: 10/24/2017 09:48 [facility] COMPARISON: No previous studies available for comparison. INDICATIONS : Patient presents with renal cancer in need of port placement for chemotherapy treatment. MEDICAL HISTORY : HTN Pneumonia MRSA hx Hematuria Renal cancer SURGICAL HISTORY : Tonsillectomy Right nephrectomy Liver bx Vasectomy ENCOUNTER: Initial ACUITY: 7-11 months PAIN SCORE: 0/10 LOCATION: n/a FLUORO TIME: 0.23 minutes IMAGE SERIES: 0 SEDATION TIME: 20 minutes ACCESS: Right internal jugular vein SEDATION: 1.) 3 mg midazolam (Versed) IV 2.) 150 mcg fentanyl (Sublimaze) IV Prophylactic antibiotics were administered with appropriate pre-procedure timing. Vancomycin within 2 hours of procedure, Ancef (or alternative) within 1 hour of procedure. DEVICE: 1. 8 Chinese single lumen BioFlo port PROCEDURE : 1. Continuous pulse oximetry and EKG monitoring. 2. Intravenous conscious sedation. 3. Ultrasound guidance for venous access. 4. Fluoroscopic guided implantable central venous port placement. The patient was placed supine. The neck was prepped in sterile fashion. Full sterile technique was u sed, including cap, mask, sterile gloves and gown, and a large sterile sheet. Hand hygiene and 2% ch lorhexidine Betadine was utilized per protocol for cutaneous antisepsis with appropriate dry time for site. Sterile gel and sterile probe cover were utilized for ultrasound guidance. The skin and sub cutaneous tissues were infiltrated with local anesthetic solution. Under direct ultrasound guidance, central venous access was accomplished in the targeted vessel. The ultrasound images depicting access guidance were stored and saved to PACS for permanent record. A s ubcutaneous pocket was created using blunt dissection. The port was introduced to the pocket. The c atheter tubing was fed through a subcutaneous tunnel to the venotomy site. The catheter tubing was c ut to a suitable length and then was introduced through a valved Peel-Away sheath and positioned with catheter tubing tip at the cavo-atrial junction level. The pocket incision was closed with subcutic ular Vicryl suture. Steri-Strips were applied. The port was flushed and locked with heparin solutio n per protocol. Sterile dressing was applied to the site. The patient tolerated the procedure well. Conscious sedation was performed with the prescribed dosages and duration as above in the presence of an independent trained radiology nurse to assist in the monitoring of the patient. EKG and oximetry remained stable throughout the procedure. The patient tolerated the procedure well and there were no complications. The patient was sent to post anesthesia recovery in stable condition. CONCLUSION: Uncomplicated ultrasound and fluoroscopic guided implanted central venous port catheter placement as described in detail above. An 8 Chinese Power port was placed. Rosales Kauffman MD on October 24, 2017 at 11:53 Board Certified Radiologist. This report was verified electronically.
== END 2017-10-24 12:00 | disposition home or self-care (01) ==
LOC: HROP 06:19 → HRIP 06:24 → HROP 12:00
PROVIDERS: ATTEND Internal Medicine
DX: C64.9 Malignant neoplasm of unspecified kidney, except renal pelvis (principal); I10 Essential (primary) hypertension; Z86.14 Personal history of Methicillin resistant Staphylococcus aureus infection
CPT/HCPCS: 36561; 76937; 77001; 85025; 99152; 99153; C1788; J0690; J1642; J2250; J3010; J3370; J7050

== ENCOUNTER 2018-02-19 15:12 | Observation (INO) ==
[2018-02-19 17:34] LABS: Baso % (Auto) 0.1 % (0.0-2.0); Eos # (Auto) 0.2 th/mm3 (0.0-0.4); Eos % (Auto) 1.7 % (0.0-4.0); Hematocrit 37.1 % (39.0-51.0); Hemoglobin 12.4 gm/dL (13.0-17.0); Lymph # (Auto) 3.3 th/mm3 (1.0-4.8); Lymph % (Auto) 33.4 % (9.0-44.0); Mean Corpuscular HGB Conc 33.5 % (32.0-36.0); Mean Corpuscular Hemoglobin 30.9 pg (27.0-34.0); Mean Corpuscular Volume 92.2 fL (80.0-100.0); Mean Platelet Volume 8.9 fL (7.0-11.0); Mono % (Auto) 9.6 % (0.0-8.0); Neut # (Auto) 5.5 th/mm3 (1.8-7.7); Neut % (Auto) 55.2 % (16.0-70.0); Platelet Count 293 th/mm3 (150-450); Red Blood Count 4.02 mil/mm3 (4.50-5.90); Red Cell Distribution Width 14.7 % (11.6-17.2)
[2018-02-19 17:55] LABS: Anion Gap 10 meq/L (5-15); Aspartate Aminotransferase 340 U/L (15-37); Blood Urea Nitrogen 27 mg/dL (7-18); Calcium 8.9 mg/dL (8.5-10.1); Carbon Dioxide 25.3 meq/L (21.0-32.0); Chloride 106 meq/L (98-107); Glomerular Filtration Rate 54 mL/min (>89); Glucose,Random 75 mg/dL (74-106); Magnesium 2.3 mg/dL (1.5-2.5); Phosphorus 3.2 mg/dL (2.5-4.9); Potassium 3.9 meq/L (3.5-5.1); Sodium 141 meq/L (136-145)
[2018-02-19 18:03] LABS: Alanine Aminotransferase 1129 U/L (12-78); Alkaline Phosphatase 210 U/L (45-117); Total Protein 5.3 g/dL (6.4-8.2)
[2018-02-19] MEDS: MethylPREDNISolone Sod Succinate Inj 125 MG/2 ML Vial IV.PUSH SCH (18:03)
[2018-02-19 18:04] LABS: Activated Partial Thrombo Time 28.9 sec (24.3-30.1); INR 1.3 Ratio; Prothrombin Time 13.3 sec (9.8-11.6)
[2018-02-19] MEDS: Sod Chloride 0.9% Inj 1,000 ML IV.SIG SCH (18:04)
[2018-02-19] MEDS: amLODIPine 5 MG Tablet PO SCH (18:04)
[2018-02-19] MEDS ORDERED: Sodium Chlor 0.9% Inj 250 ML IV.SIG SCH (19:00)
--- NOTE | 2018-02-19 20:25 | MB ---
cc: Heydi Calero MD DATE: 02/19/2018 CHIEF COMPLAINT: 1. 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 2. Metastatic renal cell carcinoma. HISTORY OF PRESENT ILLNESS: Mr. Lopez is a 66-year-old gentleman with a history of hypertension and metastatic clear cell carcinoma. In 2017, he developed hematuria. He underwent CT scan, which showed a 1.1 cm low density lesion in the dome of the liver, which was nonspecific and most likely a cyst. His right kidney was found to have 12.6 cm Bosniak 2 cyst in the upper pole of the right kidney, 6 cm x 0.4 cm x 0.5 cm enhancing mass in the lower pole of the right kidney with neovascularity. This mass is pedunculated and projects from the lower pole of the right kidney and touches the psoas and iliopsoas muscle without sheela invasion. He subsequently underwent surgical resection of the mass with pathology revealing a 5 x 4.8 x 4.8 cm unifocal clear cell renal cell carcinoma, grade 2 pathologic stage pT1 N0 stage I renal cell carcinoma. He has since been followed in surveillance. He had a CT scan of the abdomen on 08/2017, which showed 2 suspicious lesions in the right lobe of the liver measuring 3.9 x 3.3 and 2.1 x 1.7 cm, which raised the possibility of metastatic lesions. These were biopsied and returned as metastatic renal cell carcinoma. He has since been following in oncology clinic and has been being treated with dual immunotherapy. He completed 4 cycles on the nivolumab and ipilimumab and has most recently received monthly dose of ipilimumab. He was subsequently found to have jaundice and laboratory studies in the emergency room revealed an elevated bilirubin and elevated transaminases. He felt poorly and returned to the emergency room on Monday after having been discharged from the emergency room with prednisone 80 mg by mouth. He returned to the emergency room and was found to have a decline in his liver function tests; however, the AST and ALT are still elevated 15 times the upper limit of normal and he has an elevated bilirubin. PAST MEDICAL HISTORY: 1. Hypertension. 2. Metastatic renal cell carcinoma. PAST SURGICAL HISTORY: 1. Right nephrectomy in 2017. 2. Tonsillectomy in 1956. FAMILY HISTORY: No family history of kidney cancer. SOCIAL HISTORY: He is . He has a good support system with his . He is a former smoker and a former drinker. ALLERGIES: NO KNOWN DRUG ALLERGIES. REVIEW OF SYSTEMS: Positive for fatigue. PHYSICAL EXAMINATION: GENERAL: Well-developed, well-nourished man in no distress. HEENT: Head is normocephalic, atraumatic. Eyes, scleral icterus. Extraocular muscles intact. RESPIRATORY: No respiratory distress. ABDOMEN: Soft, nontender, nondistended. Bowel sounds present. EXTREMITIES: No edema. SKIN: No rashes. NEUROLOGIC: Grossly nonfocal. PSYCHIATRIC: Appropriate mood and affect. ASSESSMENT AND PLAN: 1. Metastatic renal cell carcinoma. Further immune therapy on hold given grade 3 toxicity, likely will not resume this therapy. I have discussed performing ablation with interventional radiologist, Dr. Hong, and we will plan to move forward with this therapy once liver enzymes return to normal. 2. 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 Slight improvement on oral prednisone [address] the patient on IV Solu-Medrol 80 mg twice daily. We will continue to follow labs If liver enzymes do not improve, we will plan to start the patient on oral CellCept as well as obtain GI consultation and consideration of biopsy. We will also check synthetic function of the liver by obtaining coags. MD CORAZON Tillman/josé , 05:38 PM , 05:45 PM DOMINIQUE
[2018-02-20] MEDS: Sod Chloride 0.9% Inj 1,000 ML IV.SIG SCH ×3 (04:07→23:49)
[2018-02-20] MEDS: MethylPREDNISolone Sod Succinate Inj 125 MG/2 ML Vial IV.PUSH SCH ×2 (06:47→17:39)
[2018-02-20 07:07] LABS: Baso % (Auto) 0.1 % (0.0-2.0); Hematocrit 37.5 % (39.0-51.0); Hemoglobin 12.5 gm/dL (13.0-17.0); Lymph # (Auto) 1.2 th/mm3 (1.0-4.8); Lymph % (Auto) 17.1 % (9.0-44.0); Mean Corpuscular HGB Conc 33.3 % (32.0-36.0); Mean Corpuscular Hemoglobin 31.4 pg (27.0-34.0); Mean Corpuscular Volume 94.1 fL (80.0-100.0); Mean Platelet Volume 8.8 fL (7.0-11.0); Mono # (Auto) 0.4 th/mm3 (0.0-0.9); Mono % (Auto) 5.7 % (0.0-8.0); Neut # (Auto) 5.2 th/mm3 (1.8-7.7); Neut % (Auto) 77.1 % (16.0-70.0); Platelet Count 249 th/mm3 (150-450); Red Blood Count 3.98 mil/mm3 (4.50-5.90); Red Cell Distribution Width 14.5 % (11.6-17.2); White Blood Count 6.8 th/mm3 (4.0-11.0)
[2018-02-20 07:50] LABS: Albumin 2.8 g/dL (3.4-5.0); Anion Gap 9 meq/L (5-15); Blood Urea Nitrogen 23 mg/dL (7-18); Calcium 8.8 mg/dL (8.5-10.1); Carbon Dioxide 23.3 meq/L (21.0-32.0); Chloride 109 meq/L (98-107); Glomerular Filtration Rate 68 mL/min (>89); Glucose,Random 108 mg/dL (74-106); Potassium 4.7 meq/L (3.5-5.1); Sodium 141 meq/L (136-145)
[2018-02-20 07:51] LABS: Aspartate Aminotransferase 343 U/L (15-37)
[2018-02-20 07:58] LABS: Alanine Aminotransferase 1152 U/L (12-78); Alkaline Phosphatase 195 U/L (45-117); Total Protein 5.4 g/dL (6.4-8.2)
--- NOTE | 2018-02-20 14:28 | P.PNONC ---
Subjective Interval history: Patient sitting up in bed, multiple family members at the bedside. He has no complaints at this time. Denies N/V/D. He denies any pain. Patient's is concerned about bradycardia. We have had a long conversation in regards to bradycardia being somewhat of a normal variant for some patients and also during sleep. Objective Vital Signs/Intake & Output: Vital Signs 02/19/18 15:52 02/19/18 19:58 02/19/18 21:58 Temperature 98 F 98 F 98.2 F Pulse Rate 60 61 60 Respiratory Rate 18 18 18 Blood Pressure 119/69 118/73 106/63 Pulse Oximetry 98 97 97 02/19/18 22:30 02/19/18 23:11 02/20/18 04:00 Temperature 98.1 F 98.3 F 97.9 F Pulse Rate 58 L 58 L 49 L Respiratory Rate 18 18 18 Blood Pressure 110/63 120/66 107/70 Pulse Oximetry 99 98 98 02/20/18 07:10 02/20/18 08:23 02/20/18 11:00 Temperature 97.6 F Pulse Rate 55 L 55 L 97 H Respiratory Rate 18 Blood Pressure 131/85 Pulse Oximetry 98 02/20/18 11:28 Temperature 98.1 F Pulse Rate 70 Respiratory Rate 18 Blood Pressure 156/89 H Pulse Oximetry 96 Intake & Output 02/19/18 02/20/18 02/20/18 18:59 06:59 18:59 Intake Total 480 / 480 1966 / 1965 Output Total 300 / 300 1650 / 1650 125 / 125 Balance 180 / 180 315 / 315 -125 / -125 Weight 83 kg 81.3 kg Intake: IV 1250 / 1250 NS Inj 1,000 ML @ 75 mls/hr IV. 1000 / 1000 SIG .[id number] ROLAND Rx#:[id number] NS Inj 250 ML @ 15 mls/hr IV. 250 / 250 SIG ONCE ROLAND Rx#:[id number] Oral 480 / 480 480 / 480 Intake (Blood Product) Amt 235 / 235 Pre-Pooled Cryo Thawed 10units 235 / 235 Unit [id number] Output: Urine 300 / 300 1650 / 1650 125 / 125 Other: Date of Last Bowel Movement 02/19/18 02/19/18 02/18/18 # Bowel Movements 1 Weight On Admission 83 kg Result Diagrams: 02/20/18 06:50 02/20/18 06:50 Laboratory Results: Laboratory Results - last 24 hr 02/19/18 02/19/18 02/19/18 16:53 16:53 16:53 WBC 10.0 RBC 4.02 L Hgb 12.4 L Hct 37.1 L MCV 92.2 MCH 30.9 MCHC 33.5 RDW 14.7 Plt Count 293 MPV 8.9 Neut % (Auto) 55.2 Lymph % (Auto) 33.4 [place] % (Auto) 9.6 H Eos % (Auto) 1.7 Baso % (Auto) 0.1 Neut # (Auto) 5.5 Lymph # (Auto) 3.3 [place] # (Auto) 1.0 H Eos # (Auto) 0.2 Baso # (Auto) 0.0 WBC Differential . Differential Comment Auto diff final PT 13.3 H INR 1.3 APTT 28.9 Fibrinogen 90 L* Sodium 141 Potassium 3.9 Chloride 106 Carbon Dioxide 25.3 Anion Gap 10 BUN 27 H Creatinine 1.32 H Estimated GFR 54 L Random Glucose 75 Calcium 8.9 Phosphorus 3.2 Magnesium 2.3 Total Bilirubin 2.9 H AST 340 H ALT 1129 H Alkaline Phosphatase 210 H Total Protein 5.3 L D Albumin 3.0 L Blood Type Blood Bank Comment 02/19/18 02/19/18 02/20/18 20:11 20:35 06:50 WBC 6.8 RBC 3.98 L Hgb 12.5 L Hct 37.5 L MCV 94.1 MCH 31.4 MCHC 33.3 RDW 14.5 Plt Count 249 MPV 8.8 Neut % (Auto) 77.1 H Lymph % (Auto) 17.1 [place] % (Auto) 5.7 Eos % (Auto) 0.0 Baso % (Auto) 0.1 Neut # (Auto) 5.2 Lymph # (Auto) 1.2 [place] # (Auto) 0.4 Eos # (Auto) 0.0 Baso # (Auto) 0.0 WBC Differential . Differential Comment Auto diff final PT INR APTT Fibrinogen Sodium Potassium Chloride Carbon Dioxide Anion Gap BUN Creatinine Estimated GFR Random Glucose Calcium Phosphorus Magnesium Total Bilirubin AST ALT Alkaline Phosphatase Total Protein Albumin Blood Type A Positive Blood Bank Comment 02/20/18 02/20/18 06:50 06:50 WBC RBC Hgb Hct MCV MCH MCHC RDW Plt Count MPV Neut % (Auto) Lymph % (Auto) [place] % (Auto) Eos % (Auto) Baso % (Auto) Neut # (Auto) Lymph # (Auto) [place] # (Auto) Eos # (Auto) Baso # (Auto) WBC Differential Differential Comment PT INR APTT Fibrinogen 166 L Sodium 141 Potassium 4.7 D Chloride 109 H Carbon Dioxide 23.3 Anion Gap 9 BUN 23 H Creatinine 1.08 Estimated GFR 68 L Random Glucose 108 H Calcium 8.8 Phosphorus Magnesium Total Bilirubin 2.7 H AST 343 H ALT 1152 H Alkaline Phosphatase 195 H Total Protein 5.4 L Albumin 2.8 L Blood Type Blood Bank Comment Medications: Active Medications Generic Name Dose Route Start Last Admin Trade Name Freq PRN Reason Stop Dose Admin Amlodipine Besylate 5 mg 02/19/18 18:00 02/19/18 18:04 Norvasc PO 5 mg DAILY@1800 ROLAND Administration Sodium Chloride 1,000 mls @ 75 mls/hr 02/19/18 18:00 02/20/18 04:07 Ns Inj IV.SIG 75 mls/hr .[id number] ROLAND Administration Methylprednisolone Sodium Succinate 80 mg 02/19/18 18:00 02/20/18 06:47 Solumedrol Inj IV.PUSH 80 mg BID@0600,1800 ROLAND Administration Objective Remarks: GENERAL: Well-nourished, well-developed patient. SKIN: Warm and dry. HEAD: Normocephalic. EYES: No scleral icterus. No injection or drainage. NECK: Supple, trachea midline. No JVD or lymphadenopathy. LYMPHATIC: No adenopathy. CARDIOVASCULAR: Regular rate and rhythm without murmurs. RESPIRATORY: Breath sounds equal bilaterally. No accessory muscle use. GASTROINTESTINAL: Abdomen soft, non-tender, nondistended. EXTREMITIES: No cyanosis, or edema. MUSCULOSKELETAL: Adequate muscle tone. NEUROLOGICAL: No obvious focal deficit. Awake, alert, and oriented x3. PSYCHIATRIC: Appropriate mood and affect; insight and judgment normal. Assessment/Plan - Plan Mr. Lopez is a 66-year-old gentleman with a history of hypertension and metastatic renal cell carcinoma. In 2016, he underwent surgical resection of the mass and was being followed in surveillance. In August 2017, a CT scan of the abdomen showed 2 suspicious lesions in the right lobe of the liver measuring 3.9 x 3.3 and 2.1 x 1.7 cm, which raised the possibility of metastatic lesions. These were biopsied and returned as metastatic renal cell carcinoma. He completed 4 cycles on the nivolumab and ipilimumab and has most recently received monthly dose of ipilimumab. Patient was admitted for hepatic toxicity due to immunotherapy. Plan: 1. Metastatic renal cell carcinoma. Immunotherapy now on hold indefinitely due to toxicity. We will continue to monitor liver function. Plan for possible ablation with Dr. Wheatley, interventional radiologist, once liver enzymes have stabilized. 2. 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 Continue Solu-Medrol 80 mg IV twice daily. 3. Sinus bradycardia. EKG on 02/20/2018 showed a heart rate of 46 bpm. Asymptomatic, however family concerned. We will consult cardiology. - Attending Statement The exam, history, and the medical decision-making described in the above note were completed with the assistance of the mid-level provider. I reviewed and agree with the findings presented. I attest that I had a [id number] encounter with the patient on the same day, and personally performed and documented my assessment and findings in the medical record. 67 yoM with metastatic RCC to the liver on immunotherapy and now with hepatoxicity due to immune therapy. Enzymes and bilirubin downtrending. Ultrasound of the abdomen with no abnormalities of the vasculature. Continue with steroids at current dosing.
--- NOTE | 2018-02-20 16:20 | ECG ---
Date Performed: 02/20/2018 Time Performed: 07:53:26 PTAGE: 67 years EKG: Sinus bradycardia Low QRS voltages in precordial leads Since the previous tracing, no signi ficant change noted Borderline ECG NO PREVIOUS TRACING DOCTOR: Wisam Hooper Interpretating Date/Time 02/20/2018 16:16:56
--- NOTE | 2018-02-20 17:32 | MB ---
cc: Dashawn Blum DO DATE: 02/20/2018 REASON FOR CONSULTATION: Bradycardia. HISTORY OF PRESENT ILLNESS: Shae Lopez is a pleasant 67-year-old male who presented to [facility] Emergency Room after undergoing chemotherapy. Apparently, he was found to be jaundiced and his liver enzymes were elevated and so he was admitted. He has been undergoing steroid therapy per the recommendations of hematology/oncology. While here, he has been on telemetry and was found to be somewhat bradycardic with heart rates in the upper 40s overnight and 50s to 70s during the day. In talking with him, he is hemodynamically stable without chest pain, shortness of breath or palpitations. He has been relaxing in bed and he notes that when family is over and he is up and talking with them, his heart rate increases. PAST MEDICAL HISTORY: 1. Hypertension. 2. Metastatic renal cell carcinoma. PAST SURGICAL HISTORY: 1. Right nephrectomy (2016). 2. Tonsillectomy (1955). ALLERGIES: LEVOFLOXACIN. MEDICATIONS: 1. Norvasc 5 mg daily. 2. Prednisone 80 mg daily. FAMILY HISTORY: He denies premature coronary artery disease or sudden cardiac within the family. SOCIAL HISTORY: He is . He is a former smoker and a former drinker, but denies any recent use. REVIEW OF SYSTEMS: Fourteen systems were reviewed including osteopathic. Pertinent positives and negatives above, otherwise negative. PHYSICAL EXAMINATION: VITAL SIGNS: Temperature 98.1, heart rate 70, blood pressure 156/89, respirations 18, pulse oximetry 96% on room air. GENERAL: The patient appears well, in no acute distress, alert, awake and oriented x 3. HEENT: Extraocular muscles intact. Mucous membranes moist. NECK: Supple. No JVD at 45 degrees. No carotid bruits heard bilaterally. Carotid upstroke is brisk in nature. HEART: Regular rate and rhythm. Positive first and second heart sounds with no noted murmurs, gallops or rubs. LUNGS: Clear to auscultation bilaterally. No wheezes, rales or rhonchi. ABDOMEN: Soft, nontender, nondistended. No organomegaly noted. EXTREMITIES: Show no clubbing, cyanosis or edema. Femoral and distal pulses are intact bilaterally. NEUROLOGIC: No focal deficits. SKIN: Warm, dry and intact. OSTEOPATHIC: No kyphoscoliosis, lordosis or paraspinal tender points. LABORATORY DATA: Hemoglobin 12.5, hematocrit 37.5, platelets 249. Potassium 4.7, BUN 23, creatinine 1.08. Electrocardiogram (02/20/2018 at 0753 hours), sinus bradycardia, no acute ST-T wave changes. IMPRESSION: 1. Asymptomatic bradycardia. 2. Metastatic renal cell carcinoma. 3. Hypertension. 4. 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 RECOMMENDATIONS: 1. Mr. Lopez is currently here due to hepatotoxicity due to immunotherapy and this will be treated by the hematology/oncology team. 2. As far as his bradycardia, this is most likely his normal rhythm. In review of telemetry, there are no significant pauses, high-degree AV blocks or profound bradycardia. 3. Overall, he is asymptomatic from this, and this is most likely happening during the day because he is lying in bed and not being active. Overnight, there is an increased vagal tone and this is most likely leading to his heart rates in the upper 40s to low 50s. 4. Since being here, his hypertension is mostly controlled and this will need to be followed. 5. I will plan on checking a 2-D echo for completeness, although nothing on this presumably would change our current management. Thank you for allowing me to see Shae Lopez. If there are any questions, please do not hesitate to call. DO ALLA Willingham/jeff , 05:05 PM , 05:17 PM
[2018-02-20] MEDS: amLODIPine 5 MG Tablet PO SCH (17:39)
--- NOTE | 2018-02-20 17:53 | US ---
EXAM DATE: 02/20/2018 5:41 PM EDT AGE/SEX: 67 years / Male INDICATIONS: Renal adenocarcinoma metastatic to liver. Mass. CLINICAL DATA: This is the patient's initial encounter. Patient reports that signs and symptoms have been present for 2 days and indicates a pain score of 1/10. MEDICAL/SURGICAL HISTORY: Hypertension. Liver metastases. Renal adenocarcinoma. Rosacea. Immune therapy. Nephrectomy, right. Vasectomy. Reversal vasectomy. [place] [facility] [place]EL[place] 02/14/2018. . MEASUREMENTS: Liver:__ 16.0 cm. Common Bile Duct:___ 3mm. Right Kidney:___. Surgically absent.. Left Kidney:___ . Spleen:___ Normal. FINDINGS: Liver: 2.2 x 2.2 x 2.1 cm hypoechoic mass in the right lobe of the liver with blood flow on color Do ppler imaging. Main portal vein is patent with hepatopedal flow. No ductal dilatation. Portal Vein: Hepatopedal flow seen in portal vein. Common Duct: No intraluminal mass or stone visualized. Gallbladder: Colectomy. Pancreas: Not well visualized. Right Kidney: Surgically absent. Ascites: None Pleural Effusion: None Spleen: No focal lesion. CONCLUSION: 1. Hepatic mass. Electronically signed by: Taqueria Albarran MD 02/20/2018 5:52 PM EDT
[2018-02-21] MEDS: MethylPREDNISolone Sod Succinate Inj 125 MG/2 ML Vial IV.PUSH SCH ×2 (05:07→18:20)
[2018-02-21 05:58] LABS: Baso % (Auto) 0.1 % (0.0-2.0); Hematocrit 36.6 % (39.0-51.0); Hemoglobin 12.1 gm/dL (13.0-17.0); Lymph # (Auto) 1.2 th/mm3 (1.0-4.8); Lymph % (Auto) 9.9 % (9.0-44.0); Mean Corpuscular Hemoglobin 30.9 pg (27.0-34.0); Mean Corpuscular Volume 93.8 fL (80.0-100.0); Mean Platelet Volume 8.9 fL (7.0-11.0); Mono # (Auto) 0.6 th/mm3 (0.0-0.9); Mono % (Auto) 4.8 % (0.0-8.0); Neut # (Auto) 10.5 th/mm3 (1.8-7.7); Neut % (Auto) 85.2 % (16.0-70.0); Platelet Count 274 th/mm3 (150-450); Red Blood Count 3.91 mil/mm3 (4.50-5.90); Red Cell Distribution Width 14.7 % (11.6-17.2); White Blood Count 12.3 th/mm3 (4.0-11.0)
[2018-02-21 06:02] LABS: INR 1.3 Ratio; Prothrombin Time 12.8 sec (9.8-11.6)
[2018-02-21 06:26] LABS: Alanine Aminotransferase 938 U/L (12-78); Albumin 2.4 g/dL (3.4-5.0); Alkaline Phosphatase 163 U/L (45-117); Anion Gap 8 meq/L (5-15); Aspartate Aminotransferase 208 U/L (15-37); Blood Urea Nitrogen 24 mg/dL (7-18); Calcium 8.3 mg/dL (8.5-10.1); Carbon Dioxide 22.8 meq/L (21.0-32.0); Chloride 111 meq/L (98-107); Glomerular Filtration Rate 67 mL/min (>89); Glucose,Random 120 mg/dL (74-106); Potassium 4.8 meq/L (3.5-5.1); Sodium 142 meq/L (136-145); Total Protein 4.9 g/dL (6.4-8.2)
--- NOTE | 2018-02-21 10:10 | P.PNONC ---
Subjective Interval history: Patient sitting upright in bed, with no complaints today. Objective Vital Signs/Intake & Output: Vital Signs 02/20/18 11:00 02/20/18 11:28 02/20/18 15:03 Temperature 98.1 F Pulse Rate 97 H 70 51 L Respiratory Rate 18 Blood Pressure 156/89 H Pulse Oximetry 96 02/20/18 16:00 02/20/18 20:00 02/21/18 00:00 Temperature 97.9 F 98.2 F 97.9 F Pulse Rate 52 L 62 56 L Respiratory Rate 18 16 16 Blood Pressure 136/79 114/68 110/64 Pulse Oximetry 91 L 95 98 02/21/18 04:00 02/21/18 08:00 Temperature 98 F 98 F Pulse Rate 51 L 67 Respiratory Rate 16 18 Blood Pressure 130/64 134/74 Pulse Oximetry 96 95 Intake & Output 02/20/18 02/21/18 02/21/18 18:59 06:59 18:59 Intake Total 1960 / 1960 1000 / 1000 Output Total 1025 / 1025 900 / 900 Balance 935 / 935 100 / 100 Weight 81 kg Intake: IV 1000 / 1000 1000 / 1000 NS Inj 1,000 ML @ 75 mls/hr IV. 1000 / 1000 1000 / 1000 SIG .[id number] ROLAND Rx#:[id number] Oral 960 / 960 Output: Urine 1025 / 1025 900 / 900 Other: Date of Last Bowel Movement 02/18/18 02/18/18 Result Diagrams: 02/21/18 05:05 02/21/18 05:05 Laboratory Results: Laboratory Results - last 24 hr 02/21/18 02/21/18 02/21/18 05:05 05:05 05:05 WBC 12.3 H D RBC 3.91 L Hgb 12.1 L Hct 36.6 L MCV 93.8 MCH 30.9 MCHC 33.0 RDW 14.7 Plt Count 274 MPV 8.9 Neut % (Auto) 85.2 H Lymph % (Auto) 9.9 [place] % (Auto) 4.8 Eos % (Auto) 0.0 Baso % (Auto) 0.1 Neut # (Auto) 10.5 H Lymph # (Auto) 1.2 [place] # (Auto) 0.6 Eos # (Auto) 0.0 Baso # (Auto) 0.0 WBC Differential . Differential Comment Auto diff final PT 12.8 H INR 1.3 APTT 30.0 Fibrinogen 144 L Sodium 142 Potassium 4.8 Chloride 111 H Carbon Dioxide 22.8 Anion Gap 8 BUN 24 H Creatinine 1.09 Estimated GFR 67 L Random Glucose 120 H Calcium 8.3 L Total Bilirubin 1.9 H AST 208 H ALT 938 H Alkaline Phosphatase 163 H Total Protein 4.9 L Albumin 2.4 L Imaging Studies: Impressions Liver Ultrasound 02/20/18 00:00 CONCLUSION: 1. Hepatic mass. Medications: Active Medications Generic Name Dose Route Start Last Admin Trade Name Rushq PRN Reason Stop Dose Admin Amlodipine Besylate 5 mg 02/19/18 18:00 02/20/18 17:39 Norvasc PO 5 mg DAILY@1800 ROLAND Administration Sodium Chloride 1,000 mls @ 75 mls/hr 02/19/18 18:00 02/20/18 23:49 Ns Inj IV.SIG 75 mls/hr .[id number] ROLAND Administration Methylprednisolone Sodium Succinate 80 mg 02/19/18 18:00 02/21/18 05:07 Solumedrol Inj IV.PUSH 80 mg BID@0600,1800 ROLAND Administration Objective Remarks: GENERAL: Well-nourished, well-developed male patient, in no acute distress. SKIN: Warm and dry. HEAD: Normocephalic. EYES: No scleral icterus. No injection or drainage. NECK: Supple, trachea midline. CARDIOVASCULAR: +S1/S2, without murmurs. RESPIRATORY: Posterior breath sounds clear, equal bilaterally. No accessory muscle use. GASTROINTESTINAL: Abdomen soft, non-tender, nondistended. EXTREMITIES: No cyanosis, or edema. MUSCULOSKELETAL: Adequate muscle tone. NEUROLOGICAL: No obvious focal deficit. Awake, alert, and oriented x3. PSYCHIATRIC: Appropriate mood and affect; insight and judgment normal. Assessment/Plan - Plan Mr. Lopez is a 66-year-old gentleman with a history of hypertension and metastatic renal cell carcinoma. In 2016, he underwent surgical resection of the mass and was being followed in surveillance. In August 2017, a CT scan of the abdomen showed 2 suspicious lesions in the right lobe of the liver measuring 3.9 x 3.3 and 2.1 x 1.7 cm, which raised the possibility of metastatic lesions. These were biopsied and returned as metastatic renal cell carcinoma. He completed 4 cycles on the nivolumab and ipilimumab and has most recently received monthly dose of ipilimumab. Patient was admitted for hepatic toxicity due to immunotherapy. Plan: 1. Metastatic renal cell carcinoma. Immunotherapy now on hold indefinitely due to toxicity. We will continue to monitor liver function. Plan for possible ablation with Dr. Wheatley, interventional radiologist, once liver enzymes have stabilized. Liver ultrasound revealed a 2.2 x 2.2 x 2.1 cm hypoechoic mass in the right lobe of the liver with blood flow on color Doppler imaging. No vascular abnormalities found. 2. 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 Continue Solu-Medrol 80 mg IV twice daily. 3. Sinus bradycardia. Cardiology consulted, this is likely the patient's baseline. They have ordered an echocardiogram, which is pending. - Attending Statement The exam, history, and the medical decision-making described in the above note were completed with the assistance of the mid-level provider. I reviewed and agree with the findings presented. I attest that I had a [id number] encounter with the patient on the same day, and personally performed and documented my assessment and findings in the medical record. 67 yoM with hepatotoxicity due to immune therapy. Nivolumab on hold. Continue with IV steroids. LFT downtredning.
[2018-02-21] MEDS: Sod Chloride 0.9% Inj 1,000 ML IV.SIG SCH ×2 (10:29→23:47)
[2018-02-21] MEDS: amLODIPine 5 MG Tablet PO SCH (18:22)
--- NOTE | 2018-02-21 19:29 | P.PNCA ---
Subjective Interval history: No events overnight Heart rates stable Physical Exam Vital signs: Vital Signs 02/20/18 20:00 02/21/18 00:00 02/21/18 04:00 Temperature 98.2 F 97.9 F 98 F Pulse Rate 62 56 L 51 L Respiratory Rate 16 16 16 Blood Pressure 114/68 110/64 130/64 Pulse Oximetry 95 98 96 02/21/18 08:00 02/21/18 09:39 02/21/18 12:00 Temperature 98 F 98.2 F Pulse Rate 67 54 L 69 Respiratory Rate 18 18 Blood Pressure 134/74 135/75 Pulse Oximetry 95 96 02/21/18 13:00 02/21/18 16:00 Temperature 97.9 F Pulse Rate 84 62 Respiratory Rate 18 Blood Pressure 126/77 Pulse Oximetry Intake & Output 02/21/18 02/21/18 02/22/18 06:59 18:59 06:59 Intake Total 1000 / 1000 2320 / 2320 Output Total 900 / 900 400 / 400 Balance 100 / 100 1920 / 1920 Weight 81 kg Intake: IV 1000 / 1000 1000 / 1000 NS Inj 1,000 ML @ 75 mls/hr IV. 1000 / 1000 1000 / 1000 SIG .[id number] ROLAND Rx#:[id number] Oral 1320 / 1320 Output: Urine 900 / 900 400 / 400 Other: # Voids 6 Date of Last Bowel Movement 02/18/18 02/19/18 Narrative: GENERAL: NAD, AAOx3 SKIN: Warm and dry. HEAD: Atraumatic. Normocephalic. EYES: Pupils equal and round. No scleral icterus. No injection or drainage. ENT: No nasal bleeding or discharge. Mucous membranes pink and moist. NECK: Trachea midline. No JVD. CARDIOVASCULAR: Regular rate and rhythm. RESPIRATORY: No accessory muscle use. Clear to auscultation. Breath sounds equal bilaterally. GASTROINTESTINAL: Abdomen soft, non-tender, nondistended. Hepatic and splenic margins not palpable. MUSCULOSKELETAL: Extremities without clubbing, cyanosis, or edema. No obvious deformities. NEUROLOGICAL: Awake and alert. No obvious cranial nerve deficits. Motor grossly within normal limits. Five out of 5 muscle strength in the arms and legs. Normal speech. PSYCHIATRIC: Appropriate mood and affect; insight and judgment normal. 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
[2018-02-21] MEDS ORDERED: Polyethylene Glycol 3350 17 GM Packet PO ONE (21:00)
[2018-02-22] MEDS: MethylPREDNISolone Sod Succinate Inj 125 MG/2 ML Vial IV.PUSH SCH ×2 (05:16→17:03)
[2018-02-22 07:01] LABS: Baso % (Auto) 0.1 % (0.0-2.0); Hematocrit 36.8 % (39.0-51.0); Hemoglobin 12.2 gm/dL (13.0-17.0); Lymph # (Auto) 1.1 th/mm3 (1.0-4.8); Lymph % (Auto) 9.3 % (9.0-44.0); Mean Corpuscular HGB Conc 33.2 % (32.0-36.0); Mean Corpuscular Hemoglobin 30.9 pg (27.0-34.0); Mean Corpuscular Volume 93.2 fL (80.0-100.0); Mean Platelet Volume 9.2 fL (7.0-11.0); Mono # (Auto) 0.5 th/mm3 (0.0-0.9); Neut # (Auto) 10.1 th/mm3 (1.8-7.7); Neut % (Auto) 86.6 % (16.0-70.0); Platelet Count 287 th/mm3 (150-450); Red Blood Count 3.94 mil/mm3 (4.50-5.90); Red Cell Distribution Width 15.1 % (11.6-17.2); White Blood Count 11.6 th/mm3 (4.0-11.0)
[2018-02-22 07:18] LABS: Albumin 2.4 g/dL (3.4-5.0); Anion Gap 7 meq/L (5-15); Aspartate Aminotransferase 164 U/L (15-37); Blood Urea Nitrogen 22 mg/dL (7-18); Calcium 8.4 mg/dL (8.5-10.1); Carbon Dioxide 23.8 meq/L (21.0-32.0); Chloride 111 meq/L (98-107); Glomerular Filtration Rate 73 mL/min (>89); Glucose,Random 112 mg/dL (74-106); Sodium 142 meq/L (136-145)
[2018-02-22 07:20] LABS: Alanine Aminotransferase 847 U/L (12-78); Alkaline Phosphatase 154 U/L (45-117); Total Protein 4.9 g/dL (6.4-8.2)
--- NOTE | 2018-02-22 10:02 | P.PNCA ---
Subjective Interval history: No events overnight Heart rates 50-70, asymptomatic Physical Exam Vital signs: Vital Signs 02/21/18 12:00 02/21/18 13:00 02/21/18 16:00 Temperature 98.2 F 97.9 F Pulse Rate 69 84 62 Respiratory Rate 18 18 Blood Pressure 135/75 126/77 Pulse Oximetry 96 02/21/18 17:00 02/21/18 20:00 02/22/18 00:00 Temperature 98 F 97.9 F Pulse Rate 66 56 L 58 L Respiratory Rate 16 16 Blood Pressure 123/60 118/72 Pulse Oximetry 98 96 02/22/18 04:00 Temperature 97.7 F Pulse Rate 54 L Respiratory Rate 16 Blood Pressure 132/82 Pulse Oximetry 98 Intake & Output 02/21/18 02/22/18 02/22/18 18:59 06:59 18:59 Intake Total 2320 / 2320 1200 / 1200 Output Total 400 / 400 1850 / 1850 Balance 1920 / 1920 -650 / -650 Weight 81.3 kg Intake: IV 1000 / 1000 1000 / 1000 NS Inj 1,000 ML @ 75 mls/hr IV. 1000 / 1000 1000 / 1000 SIG .[id number] [facility] Rx#:[id number] Oral 1320 / 1320 200 / 200 Output: Urine 400 / 400 1850 / 1850 Other: # Voids 6 Date of Last Bowel Movement 02/19/18 02/19/18 Narrative: GENERAL: NAD, AAOx3 SKIN: Warm and dry. HEAD: Atraumatic. Normocephalic. EYES: Pupils equal and round. No scleral icterus. No injection or drainage. ENT: No nasal bleeding or discharge. Mucous membranes pink and moist. NECK: Trachea midline. No JVD. CARDIOVASCULAR: Regular rate and rhythm. RESPIRATORY: No accessory muscle use. Clear to auscultation. Breath sounds equal bilaterally. GASTROINTESTINAL: Abdomen soft, non-tender, nondistended. Hepatic and splenic margins not palpable. MUSCULOSKELETAL: Extremities without clubbing, cyanosis, or edema. No obvious deformities. NEUROLOGICAL: Awake and alert. No obvious cranial nerve deficits. Motor grossly within normal limits. Five out of 5 muscle strength in the arms and legs. Normal speech. PSYCHIATRIC: Appropriate mood and affect; insight and judgment normal. 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
--- NOTE | 2018-02-22 11:51 | ECHRPT ---
Indication: HYPERTENSIVE HEART DISEASE CONCLUSIONS Normal left ventricular size. Wall thickness is normal. Normal left ventricular systolic function with an ejection fraction of 60-65%. Trace mitral valve regurgitation. There is trace tricuspid valve regurgitation. The estimated pulmonary arterial pressure is 36.6 mmHg. BP: / HR: Rhythm: Sinus MEASUREMENTS (Male / Female) Normal Values Technical Quality:Fair 2D ECHO LV Diastolic Diameter PLAX 4.9 cm 4.2 - 5.9 / 3.9 - 5.3 cm LV Systolic Diameter PLAX 3.2 cm IVS Diastolic Thickness 1.0 cm 0.6 - 1.0 / 0.6 - 0.9 cm LVPW Diastolic Thickness 1.0 cm 0.6 - 1.0 / 0.6 - 0.9 cm LV Relative Wall Thickness 0.4 RV Internal Dim ED PLAX 2.4 cm LVOT Diameter 2.0 cm Aortic Root Diameter 3.6 cm LA Systolic Diameter LX 2.6 cm 3.0 - 4.0 / 2.7 - 3.8 cm M-MODE AV Cusp Separation MM 2.2 cm DOPPLER AV Peak Velocity 141.0 cm/s AV Peak Gradient 8.0 mmHg AV Mean Gradient 4.0 mmHg AV Velocity Time Integral 27.4 cm LVOT Peak Velocity 107.0 cm/s LVOT Peak Gradient 4.6 mmHg LVOT Velocity Time Integral 23.9 cm AV Area Cont Eq vti 2.7 cm AV Area Cont Eq pk 2.4 cm Mitral E Point Velocity 99.2 cm/s Mitral A Point Velocity 110.0 cm/s Mitral E to A Ratio 0.9 LV E' Lateral Velocity 14.2 cm/s Mitral E to LV E' Lateral Ratio 7.0 LV E' Septal Velocity 7.5 cm/s Mitral E to LV E' Septal Ratio 13.2 TR Peak Velocity 258.0 cm/s TR Peak Gradient 26.6 mmHg Right Atrial Pressure 10.0 mmHg Pulmonary Artery Systolic Pressu 36.6 mmHg Right Ventricular Systolic Press 36.6 mmHg PV Peak Velocity 69.2 cm/s PV Peak Gradient 1.9 mmHg FINDINGS LEFT VENTRICLE Normal left ventricular size. Wall thickness is normal. The left ventricular systolic function is normal with an estimated ejection fraction in the range of 60-65%. RIGHT VENTRICLE Normal right ventricular size and systolic function. LEFT ATRIUM The left atrial size is normal. RIGHT ATRIUM The right atrial size is normal. ATRIAL SEPTUM No atrial level shunt is demonstrated by color flow Doppler interrogation. AORTA The aortic root and proximal ascending aorta are normal in size on limited imaging. MITRAL VALVE Trace mitral valve regurgitation. AORTIC VALVE Trileaflet aortic valve. No aortic valve stenosis or regurgitation. TRICUSPID VALVE There is trace tricuspid valve regurgitation. The estimated pulmonary arterial pressure is 36.6 mmHg. PULMONARY VALVE No pulmonary valve regurgitation or stenosis. VESSELS The inferior vena cava is normal in size. PERICARDIUM No pericardial effusion. Fili Mcdonough MD, FACC (Electronically Signed) Final Date:22 February 2018 11:50
--- NOTE | 2018-02-22 13:08 | P.PNONC ---
Subjective Interval history: Patient sitting in bed, visiting with family. He has no complaints at this time. He was up ambulating the hallways this a.m. Objective Vital Signs/Intake & Output: Vital Signs 02/21/18 16:00 02/21/18 17:00 02/21/18 20:00 Temperature 97.9 F 98 F Pulse Rate 62 66 56 L Respiratory Rate 18 16 Blood Pressure 126/77 123/60 Pulse Oximetry 98 02/22/18 00:00 02/22/18 04:00 Temperature 97.9 F 97.7 F Pulse Rate 58 L 54 L Respiratory Rate 16 16 Blood Pressure 118/72 132/82 Pulse Oximetry 96 98 Intake & Output 02/21/18 02/22/18 02/22/18 18:59 06:59 18:59 Intake Total 2320 / 2320 1200 / 1200 Output Total 400 / 400 1850 / 1850 Balance 1920 / 1920 -650 / -650 Weight 81.3 kg Intake: IV 1000 / 1000 1000 / 1000 NS Inj 1,000 ML @ 75 mls/hr IV. 1000 / 1000 1000 / 1000 SIG .[id number] [facility] Rx#:[id number] Oral 1320 / 1320 200 / 200 Output: Urine 400 / 400 1850 / 1850 Other: # Voids 6 Date of Last Bowel Movement 02/19/18 02/19/18 Result Diagrams: 02/22/18 05:20 02/22/18 05:20 Laboratory Results: Laboratory Results - last 24 hr 02/22/18 02/22/18 02/22/18 05:20 05:20 05:20 WBC 11.6 H RBC 3.94 L Hgb 12.2 L Hct 36.8 L MCV 93.2 MCH 30.9 MCHC 33.2 RDW 15.1 Plt Count 287 MPV 9.2 Neut % (Auto) 86.6 H Lymph % (Auto) 9.3 [place] % (Auto) 4.0 Eos % (Auto) 0.0 Baso % (Auto) 0.1 Neut # (Auto) 10.1 H Lymph # (Auto) 1.1 [place] # (Auto) 0.5 Eos # (Auto) 0.0 Baso # (Auto) 0.0 WBC Differential . Differential Comment Auto diff final Fibrinogen 136 L Sodium 142 Potassium 5.0 Chloride 111 H Carbon Dioxide 23.8 Anion Gap 7 BUN 22 H Creatinine 1.01 Estimated GFR 73 L Random Glucose 112 H Calcium 8.4 L Total Bilirubin 1.8 H AST 164 H ALT 847 H Alkaline Phosphatase 154 H Total Protein 4.9 L Albumin 2.4 L Medications: Active Medications Generic Name Dose Route Start Last Admin Trade Name Rushq PRN Reason Stop Dose Admin Amlodipine Besylate 5 mg 02/19/18 18:00 02/21/18 18:22 Norvasc PO 5 mg DAILY@1800 [facility] Administration Sodium Chloride 1,000 mls @ 75 mls/hr 02/19/18 18:00 02/21/18 23:47 Ns Inj IV.SIG 75 mls/hr .[id number] [facility] Administration Methylprednisolone Sodium Succinate 80 mg 02/19/18 18:00 02/22/18 05:16 Solumedrol Inj IV.PUSH 80 mg BID@0600,1800 [facility] Administration Objective Remarks: GENERAL: Well-nourished, well-developed male patient, in no acute distress. SKIN: Warm and dry. HEAD: Normocephalic. EYES: No scleral icterus. No injection or drainage. NECK: Supple, trachea midline. CARDIOVASCULAR: +S1/S2, without murmurs. RESPIRATORY: Posterior breath sounds clear, equal bilaterally. No accessory muscle use. GASTROINTESTINAL: Abdomen soft, non-tender, nondistended. EXTREMITIES: No cyanosis, or edema. MUSCULOSKELETAL: Adequate muscle tone. NEUROLOGICAL: No obvious focal deficit. Awake, alert, and oriented x3. PSYCHIATRIC: Appropriate mood and affect; insight and judgment normal. Assessment/Plan - Plan Mr. Lopez is a 66-year-old gentleman with a history of hypertension and metastatic renal cell carcinoma. In 2016, he underwent surgical resection of the mass and was being followed in surveillance. In August 2017, a CT scan of the abdomen showed 2 suspicious lesions in the right lobe of the liver measuring 3.9 x 3.3 and 2.1 x 1.7 cm, which raised the possibility of metastatic lesions. These were biopsied and returned as metastatic renal cell carcinoma. He completed 4 cycles on the nivolumab and ipilimumab and has most recently received monthly dose of ipilimumab. Patient was admitted for hepatic toxicity due to immunotherapy. Plan: 1. Metastatic renal cell carcinoma. Immunotherapy now on hold indefinitely due to toxicity. Plan for possible ablation with Dr. Wheatley, interventional radiologist, once liver enzymes have stabilized. Liver ultrasound revealed a 2.2 x 2.2 x 2.1 cm hypoechoic mass in the right lobe of the liver with blood flow on color Doppler imaging. No vascular abnormalities found. 2. 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 Continue Solu-Medrol 80 mg IV twice daily. 3. Continue supportive care. - Attending Statement The exam, history, and the medical decision-making described in the above note were completed with the assistance of the mid-level provider. I reviewed and agree with the findings presented. I attest that I had a ytea-[id number]-taoa encounter with the patient on the same day, and personally performed and documented my assessment and findings in the medical record.' 67 yoM with metastatic RCC. LFT downtrending. If continue to decline tomorrow morning will discharge home with oral prednisone with close follow up in clinic next week.
[2018-02-22] MEDS: Sod Chloride 0.9% Inj 1,000 ML IV.SIG SCH ×2 (13:13→19:57)
[2018-02-22] MEDS: amLODIPine 5 MG Tablet PO SCH (17:04)
[2018-02-22 20:04] VITALS: RESP 16
[2018-02-23 04:53] VITALS: BP 138/89; PULSE 63; TEMP 97.7; O2SAT 99
[2018-02-23] MEDS: MethylPREDNISolone Sod Succinate Inj 125 MG/2 ML Vial IV.PUSH SCH (05:00)
[2018-02-23] MEDS: Sod Chloride 0.9% Inj 1,000 ML IV.SIG SCH (05:05)
[2018-02-23 06:38] LABS: Baso % (Auto) 0.1 % (0.0-2.0); Hematocrit 38.8 % (39.0-51.0); Lymph # (Auto) 1.6 th/mm3 (1.0-4.8); Lymph % (Auto) 11.2 % (9.0-44.0); Mean Corpuscular HGB Conc 33.6 % (32.0-36.0); Mean Corpuscular Hemoglobin 31.3 pg (27.0-34.0); Mean Corpuscular Volume 93.2 fL (80.0-100.0); Mean Platelet Volume 9.4 fL (7.0-11.0); Mono # (Auto) 0.9 th/mm3 (0.0-0.9); Mono % (Auto) 6.1 % (0.0-8.0); Neut # (Auto) 11.7 th/mm3 (1.8-7.7); Neut % (Auto) 82.6 % (16.0-70.0); Platelet Count 306 th/mm3 (150-450); Red Blood Count 4.16 mil/mm3 (4.50-5.90); White Blood Count 14.1 th/mm3 (4.0-11.0)
[2018-02-23 06:58] LABS: Albumin 2.8 g/dL (3.4-5.0); Anion Gap 9 meq/L (5-15); Aspartate Aminotransferase 152 U/L (15-37); Blood Urea Nitrogen 28 mg/dL (7-18); Calcium 8.9 mg/dL (8.5-10.1); Carbon Dioxide 24.2 meq/L (21.0-32.0); Chloride 107 meq/L (98-107); Glomerular Filtration Rate 67 mL/min (>89); Glucose,Random 98 mg/dL (74-106); Potassium 4.8 meq/L (3.5-5.1); Sodium 140 meq/L (136-145)
[2018-02-23 07:02] LABS: Alanine Aminotransferase 838 U/L (12-78); Alkaline Phosphatase 158 U/L (45-117); Total Protein 5.3 g/dL (6.4-8.2)
--- NOTE | 2018-02-23 09:51 | P.DS ---
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 The patient also has history of hypertension. His clear cell carcinoma was diagnosed in 2016 when he developed hematuria. He underwent CAT scan which showed a 1.1 cm low-density lesion in the dome of the liver. The right kidney was found to have a 12.6 cm Bosniak 2 cyst in the upper pole of the right kidney. Surgical resection of the mass with pathology revealed a 5 x 4.8 x 4.8 cm unifocal clear cell renal cell carcinoma, grade 2 pathologic stage pT1 N0 disease. He was on surveillance. Unfortunately in August 2017 2 lesions in the right lobe of the liver were noticed and biopsy returned as metastatic renal cell carcinoma. The patient is completed 4 cycles of nivolumab and ipilimumab. His AST and ALT were elevated 15 times the upper limit of normal and he was admitted for hepatotoxicity secondary to immunotherapy. DS: Medications - Discharge Medications Prescriptions: prednisone 80 mg PO DAILY #14 tab DS: Summary Hospital Course: Patient was admitted for hepatotoxicity related to immunotherapy. He is received high-dose Solu-Medrol with decrease of his transaminases. The patient had a liver ultrasound that only showed known hepatic mass. He has been on Solu-Medrol 80 mg twice daily. He feels well and is comfortable to transition to outpatient care. - Time Spent with Patient Total time spent providing and/or coordinating discharge services: Less than 30 minutes - Quality: VTE Deep Vein Thrombosis/Pulmonary Embolism Present on Admission: No Exam Vital signs: Vital Signs 02/22/18 12:00 02/22/18 16:00 02/22/18 19:48 Temperature 97.9 F Pulse Rate 58 L 88 62 Respiratory Rate 18 18 Blood Pressure 142/79 H 131/74 Pulse Oximetry 99 99 02/22/18 20:00 02/22/18 23:59 02/23/18 00:03 Temperature 98 F 97.8 F Pulse Rate 66 60 67 Respiratory Rate 16 16 Blood Pressure 139/89 128/76 Pulse Oximetry 95 96 02/23/18 03:59 02/23/18 04:49 Temperature 97.7 F Pulse Rate 55 L 63 Respiratory Rate 16 Blood Pressure 138/89 Pulse Oximetry 99 Intake & Output 02/22/18 02/23/18 02/23/18 18:59 06:59 18:59 Intake Total 194 / 1940 2480 / 2480 Output Total 600 / 600 Balance 1939 / 0 1880 / 1880 Weight 187 lb 2.759 oz Intake: IV 1000 / 1000 1999 NS Inj 1,000 ML @ 75 mls/hr IV. 1000 / 1000 1999 SIG .[id number] [facility] Rx#:[id number] Oral 940 / 940 480 / 480 Output: Urine 600 / 600 Other: # Voids 5 Date of Last Bowel Movement 02/19/18 02/19/18 - Constitutional no acute distress - Routine HEENT Exam Head: Present: normocephalic Eye: Present: PERRL ENT: Present: mucous membranes moist - Routine Neck Exam Present: supple - Routine Respiratory Exam Present: CTA bilaterally - Routine Cardiovascular Exam Present: RRR, S1, S2 - Routine Abdominal Exam Present: soft - Routine Skin Exam Present: intact, dry - Routine Neurological Exam Present: alert, oriented X3 Results Procedures completed during hospitalization: Patient had liver ultrasound that showed known hepatic mass. Labs on day of discharge: Labs from last 24 hours 02/23/18 02/23/18 05:07 05:07 WBC 14.1 H RBC 4.16 L Hgb 13.0 Hct 38.8 L MCV 93.2 MCH 31.3 MCHC 33.6 RDW 15.0 Plt Count 306 MPV 9.4 Neut % (Auto) 82.6 H Lymph % (Auto) 11.2 [place] % (Auto) 6.1 Eos % (Auto) 0.0 Baso % (Auto) 0.1 Neut # (Auto) 11.7 H Lymph # (Auto) 1.6 [place] # (Auto) 0.9 Eos # (Auto) 0.0 Baso # (Auto) 0.0 WBC Differential . Differential Comment Auto diff final Sodium 140 Potassium 4.8 Chloride 107 Carbon Dioxide 24.2 Anion Gap 9 BUN 28 H Creatinine 1.10 Estimated GFR 67 L Random Glucose 98 Calcium 8.9 Total Bilirubin 1.8 H AST 152 H ALT 838 H Alkaline Phosphatase 158 H Total Protein 5.3 L Albumin 2.8 L - Impressions ITS Impressions Liver Ultrasound 02/20/18 00:00 CONCLUSION: 1. Hepatic mass. <Heydi Calero N - Last Filed: 02/23/18 19:33> Date of admission: 02/19/18 15:12 Primary care physician: UNKNOWN DS: Summary - Time Spent with Patient Total time spent providing and/or coordinating discharge services: Exam Vital signs: Vital Signs 02/22/18 19:48 02/22/18 20:00 02/22/18 23:59 Temperature 98 F 97.8 F Pulse Rate 62 66 60 Respiratory Rate 16 16 Blood Pressure 139/89 128/76 Pulse Oximetry 95 96 02/23/18 00:03 02/23/18 03:59 02/23/18 04:49 Temperature 97.7 F Pulse Rate 67 55 L 63 Respiratory Rate 16 Blood Pressure 138/89 Pulse Oximetry 99 Intake & Output 02/23/18 02/23/18 02/24/18 06:59 18:59 06:59 Intake Total 2480 / 2480 Output Total 600 / 600 Balance 1880 / 1880 Weight 84.9 kg Intake: IV 1999 NS Inj 1,000 ML @ 75 mls/hr IV. 1999 SIG [facility][id number] Rx#:[id number] Oral 480 / 480 Output: Urine 600 / 600 Other: Date of Last Bowel Movement 02/19/18 02/23/18 Results Labs on day of discharge: Labs from last 24 hours 02/23/18 02/23/18 05:07 05:07 WBC 14.1 H RBC 4.16 L Hgb 13.0 Hct 38.8 L MCV 93.2 MCH 31.3 MCHC 33.6 RDW 15.0 Plt Count 306 MPV 9.4 Neut % (Auto) 82.6 H Lymph % (Auto) 11.2 [place] % (Auto) 6.1 Eos % (Auto) 0.0 Baso % (Auto) 0.1 Neut # (Auto) 11.7 H Lymph # (Auto) 1.6 [place] # (Auto) 0.9 Eos # (Auto) 0.0 Baso # (Auto) 0.0 WBC Differential . Differential Comment Auto diff final Sodium 140 Potassium 4.8 Chloride 107 Carbon Dioxide 24.2 Anion Gap 9 BUN 28 H Creatinine 1.10 Estimated GFR 67 L Random Glucose 98 Calcium 8.9 Total Bilirubin 1.8 H AST 152 H ALT 838 H Alkaline Phosphatase 158 H Total Protein 5.3 L Albumin 2.8 L - Impressions ITS Impressions Liver Ultrasound 02/20/18 00:00 CONCLUSION: 1. Hepatic mass. Discharge Plan - Discharge Order Discharge Orders: Discharge Order (Routine); Ordered 02/23/18 Ordered By: Elizabeth Marin - Discharge Details Anticipated Discharge Date: 02/23/18 - Physicians Team Primary Care Provider: UNKNOWN, Attending Provider: Heydi Calero Other Providers: Dashawn Blum DO - Rxs /Orders / Referrals /Forms Prescriptions: Continue amlodipine [Norvasc] 5 mg Tablet 5 mg PO DAILY prednisone 20 mg Tablet 80 mg PO DAILY Qty: 14 Referrals: Heydi Calero [Physician] - See Instructions - Discharge Instructions Additional Instructions: Patient will need to follow-up in clinic on Monday for labs. He we will see Dr. Calero in clinic on Monday of next week. These orders have been placed and he should be expecting a phone call from the outpatient clinic to schedule.
--- NOTE | 2018-02-23 11:06 | P.PNCA ---
Subjective Interval history: Being discharged Feels well Physical Exam Vital signs: Vital Signs 02/22/18 12:00 02/22/18 16:00 02/22/18 19:48 Temperature 97.9 F Pulse Rate 58 L 88 62 Respiratory Rate 18 18 Blood Pressure 142/79 H 131/74 Pulse Oximetry 99 99 02/22/18 20:00 02/22/18 23:59 02/23/18 00:03 Temperature 98 F 97.8 F Pulse Rate 66 60 67 Respiratory Rate 16 16 Blood Pressure 139/89 128/76 Pulse Oximetry 95 96 02/23/18 03:59 02/23/18 04:49 Temperature 97.7 F Pulse Rate 55 L 63 Respiratory Rate 16 Blood Pressure 138/89 Pulse Oximetry 99 Intake & Output 02/22/18 02/23/18 02/23/18 18:59 06:59 18:59 Intake Total 1940 / 1940 2480 / 2480 Output Total 600 / 600 Balance 1940 / 1940 1880 / 1880 Weight 84.9 kg Intake: IV 1000 / 1000 1999 NS Inj 1,000 ML @ 75 mls/hr IV. 1000 / 1000 1999 SIG .[id number] [facility] Rx#:[id number] Oral 940 / 940 480 / 480 Output: Urine 600 / 600 Other: # Voids 5 Date of Last Bowel Movement 02/19/18 02/19/18 02/23/18 Narrative: GENERAL: NAD, AAOx3 SKIN: Warm and dry. HEAD: Atraumatic. Normocephalic. EYES: Pupils equal and round. No scleral icterus. No injection or drainage. ENT: No nasal bleeding or discharge. Mucous membranes pink and moist. NECK: Trachea midline. No JVD. CARDIOVASCULAR: Regular rate and rhythm. RESPIRATORY: No accessory muscle use. Clear to auscultation. Breath sounds equal bilaterally. GASTROINTESTINAL: Abdomen soft, non-tender, nondistended. Hepatic and splenic margins not palpable. MUSCULOSKELETAL: Extremities without clubbing, cyanosis, or edema. No obvious deformities. NEUROLOGICAL: Awake and alert. No obvious cranial nerve deficits. Motor grossly within normal limits. Five out of 5 muscle strength in the arms and legs. Normal speech. PSYCHIATRIC: Appropriate mood and affect; insight and judgment normal. 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
--- NOTE | 2018-02-23 19:33 | P.PNONC ---
Subjective Interval history: Patient seen this morning at approximately 8 am. Brother and sister in law at bedside. Feeling well. Has been walking hallways this morning. Looking forward to going home. Objective Vital Signs/Intake & Output: Vital Signs 02/22/18 19:48 02/22/18 20:00 02/22/18 23:59 Temperature 98 F 97.8 F Pulse Rate 62 66 60 Respiratory Rate 16 16 Blood Pressure 139/89 128/76 Pulse Oximetry 95 96 02/23/18 00:03 02/23/18 03:59 02/23/18 04:49 Temperature 97.7 F Pulse Rate 67 55 L 63 Respiratory Rate 16 Blood Pressure 138/89 Pulse Oximetry 99 Intake & Output 02/23/18 02/23/18 02/24/18 06:59 18:59 06:59 Intake Total 2480 / 2480 Output Total 600 / 600 Balance 1880 / 1880 Weight 84.9 kg Intake: IV 1999 NS Inj 1,000 ML @ 75 mls/hr IV. 1999 SIG .[id number] [facility] Rx#:[id number] Oral 480 / 480 Output: Urine 600 / 600 Other: Date of Last Bowel Movement 02/19/18 02/23/18 Result Diagrams: 02/23/18 05:07 02/23/18 05:07 Laboratory Results: Laboratory Results - last 24 hr 02/23/18 02/23/18 05:07 05:07 WBC 14.1 H RBC 4.16 L Hgb 13.0 Hct 38.8 L MCV 93.2 MCH 31.3 MCHC 33.6 RDW 15.0 Plt Count 306 MPV 9.4 Neut % (Auto) 82.6 H Lymph % (Auto) 11.2 [place] % (Auto) 6.1 Eos % (Auto) 0.0 Baso % (Auto) 0.1 Neut # (Auto) 11.7 H Lymph # (Auto) 1.6 [place] # (Auto) 0.9 Eos # (Auto) 0.0 Baso # (Auto) 0.0 WBC Differential . Differential Comment Auto diff final Sodium 140 Potassium 4.8 Chloride 107 Carbon Dioxide 24.2 Anion Gap 9 BUN 28 H Creatinine 1.10 Estimated GFR 67 L Random Glucose 98 Calcium 8.9 Total Bilirubin 1.8 H AST 152 H ALT 838 H Alkaline Phosphatase 158 H Total Protein 5.3 L Albumin 2.8 L Objective Remarks: GENERAL: Well-nourished, well-developed patient. SKIN: Warm and dry. HEAD: Normocephalic. EYES: No scleral icterus. No injection or drainage. NECK: Supple, trachea midline. No JVD or lymphadenopathy. LYMPHATIC: No adenopathy. RESPIRATORY: No accessory muscle use. GASTROINTESTINAL: Abdomen soft, non-tender, nondistended. EXTREMITIES: No cyanosis, or edema. MUSCULOSKELETAL: Adequate muscle tone. NEUROLOGICAL: No obvious focal deficit. Awake, alert, and oriented x3. PSYCHIATRIC: Appropriate mood and affect; insight and judgment normal. Assessment/Plan - Plan 1. Metastatic renal cell carcinoma. Immunotherapy now on hold indefinitely due to toxicity. Plan for possible ablation with Dr. Wheatley, interventional radiologist, once liver enzymes have stabilized. 2. 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 Will discharge home with prednisone 80 mg PO Qdaily with close follow up in clinic next week.
== END 2018-02-23 10:05 | disposition home or self-care (01) ==
LOC: HCIN 15:12 → INTOOBSV 15:12
PROVIDERS: ADMIT Internal Medicine; ATTEND Internal Medicine